=== PATIENT | female | born 1950 | race Caucasian/White ===

== ENCOUNTER 2024-04-18 20:36 | Inpatient (IN) | payer MEDICARE, OTHER, SELFPAY ==
--- OUTSIDE RECORDS SUMMARY | 2024-04-18 20:38 | XMS_ITS | Clinical Summary ---
Author Organization [facility] Address [address] [place] [address]. [place] [address] Care Team Providers Care Tearer Press Clipping Name Role Phone David Boyd MD Unavailable Marly Marcano MD Unavailable [phone] Reji Coelho MD Unavailable Anil Zavala MD Unavailable [phone] Anthony Kraus MD Unavailable [phone] Anthony Kraus MD Unavailable [phone] Sandra Luis MD Unavailable Hortensia Aguilar APRN [facility] Primary Care Pro vider Allergies Active Allergy Reactions Criticality Noted Date Comments Amoxicillin Hives 07/21/2005 04/09/23: Pt states she did take amoxocillin and had no issues Piroxicam Hives 07/21/2005 Sulfamethoxazole Hives 07/21/2005 Medications albuterol (PROAIR HFA/PROVENTIL HFA/VENTOLIN HFA) 108 (90 Base) MCG/ACT Inhaler Inhale 1-2 puffs into the lungs 01/21/20 15 Active aluminum chloride (DRYSOL) 20 % external solution 08/04/19 11 Active ammonium lactate (AMLACTIN) 12 % cream Apply topically daily as needed 01/19/20 11 Active calcipotriene (DOVONOX) 0.005 % cream Apply topically daily as needed (rash) 06/03/19 10 Active lidocaine (XYLOCAINE) 2 % external gelIndications:Ext ernal hemorrhoids Apply topically as needed for moderate pain 30 mL 2 12/11/19 19 Active Cyanocobalamin (VITAMIN B-12 PO) Take 1 Dose by mouth at bedtime Active budesonide-formote rol (SYMBICORT) 160-4.5 MCG/ACT InhalerIndications :Chronic obstructive pulmonary disease, unspecified COPD type (H) Inhale 2 puffs into the lungs 2 times daily 10.2 g 1 09/01/19 21 Active clobetasol (TEMOVATE) 0.05 % external ointmentIndication s:Psoriasis Apply topically daily as needed (rash) 60 g 06/22/19 22 Active ketoconazole (NIZORAL) 2 % external creamIndications:T inea pedis of both feet Apply topically daily 60 g 3 02/15/20 23 Active hydrOXYzine HCl (ATARAX) 25 MG tabletIndications: Persistent disorder of initiating or maintaining sleep TAKE 1 TABLET NIGHTLY NEEDED 90 tablet 1 04/21/19 24 Active omeprazole (PRILOSEC) [address] capsuleIndications :Hoarseness,Gastro esophageal reflux disease without esophagitis Take 1 capsule (40 mg) by mouth daily 90 capsule 1 04/20/19 24 Active Lidocaine (LIDOCARE) 4 % Patch Place 1 patch onto the skin every 24 hours To prevent lidocaine toxicity, patient should be patch free for 12 hrs daily. 10 patch 05/04/19 24 Active buPROPion (ZYBAN) 150 MG 12 hr tabletIndications: Nicotine dependence, uncomplicated, unspecified nicotine product type Take 1 tablet (150 mg) by mouth 2 times daily After your quit date treatment generally continues 7-12 weeks. Take your afternoon dose no later than 4pm 60 tablet 2 09/22/19 24 Active predniSONE (DELTASONE) 10 MG tablet Take 3 tablets for two days. Then take two tablets for two days. Then take 1 tablet for two days. 12 tablet 09/05/19 24 Active Additional Information Patient not taking.Reported on 04/09/2024 ipratropium - albuterol 0.5 mg/2.5 mg/3 mL (DUONEB) 0.5-2.5 (3) MG/3ML neb solutionIndication s:COPD exacerbation (H) Take 1 vial (3 mLs) by nebulization every 6 hours as needed for shortness of breath, wheezing or cough 90 mL 1 09/10/19 24 Active budesonide (PULMICORT) 1 MG/2ML neb solutionIndication s:Chronic obstructive pulmonary disease, unspecified COPD type (H) Take 2 mLs (1 mg) by nebulization 2 times daily 180 mL 1 09/10/19 24 Active azelastine (ASTELIN) 0.1 % nasal sprayIndications:C hronic rhinitis [place] 2 sprays into both nostrils at bedtime May increase to twice daily as needed 30 mL 3 10/10/19 24 Active albuterol (PROVENTIL) (2.5 MG/3ML) 0.083% neb solutionIndication s:Chronic obstructive pulmonary disease, unspecified COPD type (H) INHALE 1 VIAL (2.5MG) BY NEBULIZATION EVERY 4 HOURS NEEDED FOR SHORTNESS OF BREATH, WHEEZING OR COUGH 75 mL 10/29/19 24 Active diltiazem 2% 2% OINT ointmentIndication s:Anal fissure Apply 60 g topically 2 times daily as needed. 60 g 11/23/19 24 Active levothyroxine (SYNTHROID/LEVOTHR OID) 112 MCG tabletIndications: Hypothyroidism, unspecified type Take 1 tablet (112 mcg) by mouth daily. 90 tablet 3 03/06/20 24 Active liothyronine (CYTOMEL) 5 MCG tabletIndications: Hypothyroidism, unspecified type Take 3 tablets by mouth daily. 225 tablet 3 03/06/20 24 Active gabapentin (NEURONTIN) 300 MG capsuleIndications :Peripheral polyneuropathy Take 1 capsule (300 mg) by mouth 3 times daily. 270 capsule 03/06/20 24 025 Active trimethoprim (TRIMPEX) 100 MG tabletIndications: Recurrent UTI Take 1 tablet (100 mg) by mouth at bedtime. 90 tablet 3 03/06/20 24 Active D-Mannose 500 MG CAPSIndications:Re current UTI Take 500 mg by mouth 2 times daily. 180 capsule 3 04/09/19 25 Active Hospital, Clinic, or Other Facility Administered Medication Ordered Dose Route Frequency Start Date End Date Status ondansetron (ZOFRAN-ODT) ODT tab 4 mgIndications:Nausea 4 mg PO EVERY 6 HOURS PRN 07/13/2021 Active Active Problems Problem Noted Date Diagnosed Date Anal fissure 01/31/2024 Purpura 01/23/2024 Pulmonary nodule 11/29/2022 Overview (11/29/2022): Referred to [facility] by [employer] [place] Results Team. COPD (chronic obstructive pulmonary disease) Personal history of ovarian cancer 06/21/2021 History of gastric bypass 12/10/2020 Chronic bronchitis 05/29/2020 Stage 3a chronic kidney disease 04/05/2020 Age-related osteoporosis wit hout current pathological fracture 04/02/2020 Overview (06/21/2021): L-.3, LH-2.5, RH-2.3 Persistent disorder of initiating or maintaining sleep 11/04/2019 Tobacco abuse 11/04/2019 Other specified hypothyroidism 11/04/2019 History of pulmonary embolism 11/04/2019 Overview (06/21/2021): 2007 Nephrolithiasis 10/03/2019 Overview (10/03/2019): Added automatically from request for surgery [id number] Psoriasis 09/24/2017 Recurrent UTI 08/01/2017 Overview (04/17/2024): Follows Urology; seen on 04-09-24. Will plan on the following: -Will plan starting d-mannose 500 mg twice daily. Can increase up to 1000 mg twice daily, if tolerated. This is for UTI prevention. -You have already had anatomical evaluation for recurrent UTIs and findings have been addressed. -I would prefer that you stop trimethoprim, as I recommend in 2020. You would like to continue. Would recommend discussing with infectious diseases. -Would only recommend treating UTIs if having symptoms. If no real symptoms or no improvement with antibiotics, would not recommend continuing to treat. At that point, likely colonized. -Plan on referral to infectious diseases given ESBL with worsening resistance to antibiotics. Was sensitive to fosfomycin in 2020, but not recently tested for this. ID referral number: We could teach you gentamicin irrigations if ID wanted, but would hold off on this for the time being. -Could try a different overactive bladder medication to see if this would help frequency. Another option would be posterior tibial nerve stimulation. Status post total left knee replacement 08/19/[address] scan, chest 02/07/2010 Overview (07/02/2020): Ill defined 1cm area of possible inflammation, atelectasis vs pulmonary nodule. 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 Pseudoaneurysm in the right groin seen 02/04/07, partially thrombosed. Urge incontinence 12/13/2004 Other vitamin B12 deficiency anemia 08/25/1999 Asymptomatic varicose veins 08/25/1999 Resolved Problems Problem Noted Date Diagnosed Date Resolved Date Malignant neoplasm of ovary, unspecified laterality 11/08/2022 11/27/2022 Thoracic back pain 11/18/2020 Morbid obesity 07/02/2020 01/23/2024 Depression 07/06/2003 12/10/2020 Encounters Date Type Department Care Team Description 04/09/2024 3:00 PM LAB[employer]E Office Visit [facility] [address] [place] [phone] Fariba Kebede PA-C Recurrent UTI (Primary Dx); Feeling of incomplete bladder emptying; History of kidney stones 04/09/2024 Travel 04/07/2024 MyC Medical Advice [address] [phone] Romaine Michael APRN CNP 04/06/2024 Travel 03/07/2024 Telephone [facility] [address] [place] [address] Sandra Luis MD Schedule Surgery (Patient canceled surgery d/t condition improved) 03/06/2024 11:30 AM LAB[employer]E Office Visit [address] [phone] Romaine Michael APRN CNP Hypothyroidism, unspecified type (Primary Dx); Peripheral polyneuropathy; Recurrent UTI; Chronic obstructive pulmonary disease, unspecified COPD type (H) 03/06/2024 10:30 AM [employer]E Immunization [address] [phone] Need for prophylactic vaccination and inoculation against influenza (Primary Dx); High priority for 2019-nCoV vaccine 03/06/2024 Travel 03/04/[address] [phone] Marly Marcano MD Refill Request (Levothyroxine, liothyronine, trimethoprim, gabapentin) 02/05/2024 Telephone [facility] [address] [phone] Sandra Luis MD Schedule Surgery 01/31/2024 11:30 AM CDT Office Visit [facility] [address] [phone] Sandra Luis MD Anal fissure (Primary Dx) 01/31/2024 Orders Only [facility] [address] [phone] Sandra Luis MD Anal fissure (Primary Dx) 01/31/2024 Travel 01/28/2024 Travel 01/23/2024 1:00 PM CDT Office Visit [address] [phone] Hortensia Aguilar APRN CNP Recurrent UTI (Primary Dx); Stage 3a chronic kidney disease (H) 01/23/2024 Travel 01/22/2024 Travel from Last 3 Months Immunizations Name Administration Dates Next Due COVID-19 12+ (Pfizer) 03/06/2024 COVID-19 Monovalent 18+ (Moderna) 02/07/2021,,05/29/2020 Influenza (High Dose) Trival ent,PF (Fluzone) 03/06/2024,03/16/2020 Influenza Vaccine 65+ (FLUAD) 04/30/2023, 022,02/17/2021 Influenza Vaccine >6 months,quad, PF 12/01/2014, 12/12/2013 Influenza Vaccine, 6+MO IM ( QUADRIVALENT W/PRESERVATIVES) 12/15/2018 Pneumo Conj 13-V (2010&after) 11/04/2019 Pneumococcal 23 valent 06/21/2021,02/05/2001 TDAP (Adacel,Boostrix) 06/21/2021 Tdap (Adult) Unspecified Formulation 02/07/2010 Family History Medical History Relation Comments Coronary Artery Disease Brother Myocardial Infarction Brother Coronary Artery Disease Father Diabetes Father Leukemia Mother Other Cancer Mother Diabetes Sister 1 Hypertension Sister 1 Macular Degeneration Sister 1 Obesity Sister 1 Thyroid Disease Sister 1 Cancer Sister 2 Diabetes Sister 2 Hypertension Sister 2 Macular Degeneration Sister 2 Other Cancer Sister 2 Thyroid Disease Sister 2 Diabetes Sister 3 Thyroid Disease Sister 3 Thyroid Disease Sister 4 Lupus Sister 5 Asthma Son Relation Status Comments Brother Father Mother Sister 1 Sister 2 Sister 3 Alive Sister 4 Alive Sister 5 Alive Son Social History Tobacco Use Types Packs/Day Years Used Date Smoking Tobacco: Every Day Cigarettes 0.5 10 Smokeless Tobacco: Current Tobacco Cessation:Ready to Q uit: Not Asked; Counseling Given: Not Answered Alcohol Use Standard Drinks/Week Comments No 0 (1 standard drink = 0.6 oz pur e alcohol) Social Connection and Isolation Panel [NHANES] A nswer Date Recorded In a typical week, how many times do you talk on the phone with family, friends, or neighbors? Once a week 11/20/2022 How often do you get together with friends or re latives? Once a week 11/20/2022 How often do you attend adventist or temple serv ices? Never 11/20/2022 Do you belong to any clubs o r organizations such as adventist groups, unions, fraternal or athletic groups, or school groups? No 11/20/2022 Attends Club or Organization Meetings Not on yemi e 11/20/2022 Are you , , di vorced, , never , or living with a partner? 11/20/2022 AUDIT-C Answer Date Recorded Q1: How often do you have a drink containing alcohol? Never 11/20/2022 Q2: How many drinks containi ng alcohol do you have on a typical day when you are drinking? Patient does not drink Q3: How often do you have si x or more drinks on one occasion? Never 11/20/2022 Overall Financial Resource Strain (CARDIA) Answe r Date Recorded How hard is it for you to pa y for the very basics like food, housing, medical care, and heating? Not very hard 11/20/2022 PHQ-2 Answer Date Recorded PHQ-2 Score 0 05/11/2023 [facility] - Occupational Stress Questionnaire Answer Date Recorded Do you feel stress - tense, restless, nervous, or anxious, or unable to sleep at night because your mind is troubled all the time - these days? Not at all 11/20/2022 Exercise Vital Sign Answer Date Recorde d On average, how many days pe r week do you engage in moderate to strenuous exercise (like a brisk walk)? 0 days 11/20/2022 On average, how many minutes do you engage in exercise at this level? 10 min 11/20/2022 Hunger Vital Sign Answer Date Recorded Within the past 12 months, y ou worried that your food would run out before you got the money to buy more. Never true 11/21/19 23 Within the past 12 months, t he food you bought just didn't last and you didn't have money to get more. Never true 11/20/2022 PRAPARE - Transportation Answer Date Re corded In the past 12 months, has l ack of transportation kept you from medical appointments or from getting medications? No 11/01 In the past 12 months, has l ack of transportation kept you from meetings, work, or from getting things needed for daily living? No 11/20/2022 Housing Stability Vital Sign Answer Serg e Recorded In the last 12 months, was t here a time when you were not able to pay the mortgage or rent on time? No 11/20/2022 In the last 12 months, how many places have you lived? 1 11/20/2022 In the last 12 months, was t here a time when you did not have a steady place to sleep or slept in a fpc (including now)? No 11/20/2022 Adolescent Education Answer Date Record ed Getting School Help Needed Not on file 12/23 Interpersonal Safety Answer Date Record ed Do you feel physically and e motionally safe where you currently live? Yes 11/12/2023 Within the past 12 months, h ave you been hit, slapped, kicked or otherwise physically hurt by someone? No 11/12/2023 Within the past 12 months, h ave you been humiliated or emotionally abused in other ways by your partner or ex-partner? No 11/12/2023 Comments No Sex and Gender Information Value Date Recorded Sex Assigned at Female 05/01/2020 8:36 AM [employer]E Legal Sex Female 3:25 AM [employer] Gender Identity Female 05/01/2020 8:36 AM [employer]E Sexual Orientation Not on file Last Filed Vital Signs Vital Sign Reading Time Taken Comments Blood Pressure 112/58 04/09/2024 3:05 PM [employer]E Pulse 84 03/06/2024 11:22 AM [employer]E Temperature 36.8 C (98.3 F) 03/06/2024 11:02 AM [employer]CR[employer]E Respiratory Rate 16 03/06/2024 11:02 AM [employer]ER [employer]CR[employer]E Oxygen Saturation 100% 03/06/2024 11:22 AM [employer]E Inhaled Oxygen Concentration - - Weight 68.9 kg (152 lb) 04/09/2024 3:05 PM [employer]ER [employer]E Height 159.4 cm (5' 2.75) 03/06/2024 11:[address] Body Mass Index 27.14 03/06/2024 11:02 AM [employer]ER [employer]E Plan of Treatment Upcoming Encounters Date Type Department Care Team (Late st Contact Info) Description 04/30/2024 11:00 AM LAB[employer]CRETE Office Visit [address] [phone] Hortensia Aguilar APRN [facility] [id number] [place] [phone] Health Maintenance Due Date Last Done Comments CT COLONOGRAPHY 1952 FLEX SIG 1950 SPIROMETRY 1952 sDNA (Cologuard) 1952 ZOSTER IMMUNIZATION (1 of 2) 2002 RSV VACCINE (1 - Risk 60-74 years 1-dose series) 2012 FIT 02/18/2015 02/18/2014 LIPID 11/09/2023 11/08/2022, 06/01, 12/05/2019 ANNUAL REVIEW OF HM ORDERS 11/28/202311/27, 06/21/2021, 04/05/2020 PHQ-2 (once per calendar year) 2024 05/11/2023, 11/27/2022, 11/08/2022, Additional history exists LUNG CANCER SCREENING 08/20/2024 08/21/2023 , 11/28/2022, 05/29/2020, Additional history exists MEDICARE ANNUAL WELLNESS VISIT 08/20/2024 08/21/2023, 11/08/2022 HEMOGLOBIN 09/04/2024 09/05/2023, 08/01, 05/04/2023, Additional history exists TSH W/FREE T4 REFLEX 09/08/2024 11/08/2022, 11/25/2021, 12/10/2020, Additional history exists Postponed from 11/09/2023 (Other) FALL RISK ASSESSMENT 11/11/2024 11/12/2023, 11/27/2022, 11/08/2022, Additional history exists NICOTINE/TOBACCO CESSATION COUNSELING Q 1 YR 11/11/2024 11/12/2023, 11/08/2022, 06/21/2021, Additional history exists BMP 01/22/2025 01/23/2024, 06/0 08/2023, 08/21/2023, Additional history exists MICROALBUMIN 01/22/2025 01/23/2024, 11/01, 06/21/2021 MAMMO SCREENING 11/20/2025 11/21/2023, 06/01, 06/21/2021, Additional history exists COLONOSCOPY 08/16/2026 08/16/2016 COLORECTAL CANCER SCREENING 08/16/2026 GLUCOSE 01/22/2027 01/23/2024, 06/0 08/2023, 08/21/2023, Additional history exists ADVANCE CARE PLANNING 11/12/2027 11/11/2022 , 11/25/2021, 12/05/2019 DTAP/TDAP/TD IMMUNIZATION (3 - Td or Tdap) 06/22/2031 06/21/2021, 02/07/2010 DEXA 04/26/2035 04/26/2020 HEPATITIS C SCREENING Completed 04/05/2020 Pneumococcal Vaccine: 50+ Years Completed 06/21/2021, 11/04/2019, 02/05/2001 COPD ACTION PLAN Completed 11/25/2021, 11/25/2021 COVID-19 Vaccine Completed 03/06/2024, , 03/02/2022, Additional history exists INFLUENZA VACCINE Completed 03/06/2024, , 03/02/2022, Additional history exists URINALYSIS Completed 04/09/2024, 01/01, 01/09/2024, Additional history exists HPV IMMUNIZATION Aged Out No longer e ligible based on patient's age to complete this topic MENINGITIS IMMUNIZATION Aged Out No l onger eligible based on patient's age to complete this topic RSV MONOCLONAL ANTIBODY Aged Out No l onger eligible based on patient's age to complete this topic Procedures Procedure Name Priority Date/Time Associated Diagnosis Comments URINALYSIS MACROSCOPIC Routine 04/09/2024 3:18 PM [employer] Recurrent UTI MI MEASURE POST-VOID RESIDUAL URINE/BLADDER CAPACITY, US NON-IMAGING Routine 04/09/2024 Feeling of incomplete bladder emptying COMPREHENSIVE METABOLIC PANEL Routine 01/23/2024 1:57 PM CDT Stage 3a chronic kidney disease (H) UA MACROSCOPIC WITH REFLEX TO MICRO AND CULTURE Add-On 01/23/2024 12:46 PM CDT Recurrent UTI ALBUMIN RANDOM URINE QUANTITATIVE Routine 01/23/2024 12:46 PM CDT MA SCREENING BILATERAL W/ JERMAINE Routine 11/21/2023 10:34 AM CDT Visit for screening mammogram CBC WITH PLATELETS AND DIFFERENTIAL STAT 09/05/2023 12:[address] CHEST PULMONARY EMBOLISM W CONTRAST STAT 08/21/2023 6:39 PM CDT TSH WITH FREE T4 REFLEX Routine 11/08/2022 10:08 AM CDT Other specified hypothyroidism LIPID REFLEX TO DIRECT LDL PANEL Routine 11/08/2022 10:08 AM CDT Encounter for Medicare annual wellness exam DX BONE DENSITY Routine 04/26/2020 1:38 PM [employer] Asymptomatic menopausal state Screening for osteoporosis HEPATITIS C SCREEN REFLEX TO HCV RNA QUANT AND GENOTYPE Routine 04/05/2020 5:30 PM [employer] Need for hepatitis C screening test COLONOSCOPY - HIM SCAN 08/16/2016 12:00 AM CDT from Last 3 Months or Most Recently Relevant to Health Maintenance Results * (ABNORMAL) UA without Microscopic [[id number]] (04/09/2024 3:18 PM LAB[employer]ER [employer]E) Color Urine Yellow Colorless, Straw, Light Yellow, Yellow 04/09/2024 3:20 PM LAB[employer]ER [employer]E [facility] Appearance Urine Clear Clear 04/09/19 3:20 PM LAB[employer]ER [employer]E [facility] Glucose Urine Negative Negative mg/dL 04/09/2024 3:20 PM LAB[employer]ER [employer]E [facility] Bilirubin Urine Negative Negative 3:20 PM LAB[employer]ER [employer]CR[employer]E [facility] Ketones Urine Negative Negative mg/dL 04/09/2024 3:20 PM [employer]ER [employer] CONCR[employer]E [facility] Specific [place] Urine 1.015 1.003 - 1.035 04/09/2024 3:20 PM LAB[employer]ER [employer]E [facility] Blood Urine Negative Negative 04/09/2024 3:20 PM [employer]ER [employer]E [facility] pH Urine 5.5 5.0 - 7.0 04/09/2024 3:20 PM [employer]ER [employer]E [facility] Protein Albumin Urine Negative Negative mg/dL 04/09/2024 3:20 PM LAB[employer]ER [employer]CR[employer]E [facility] Urobilinogen Urine 0.2 0.2, 1.0 E.U./dL 04/09/2024 3:20 PM [employer]ER [employer]E [facility] Nitrite Urine Negative Negative 04/09/2024 3:20 PM LAB[employer]ER [employer]CR[employer]E [facility] Leukocyte Esterase Urine Small(A) Negative 04/09/2024 3:20 PM LABORER [employer] CONCRETE [facility] Urine MID-STREAM URINE SPECIMEN / Unknown Non-blood Collection / Unknown 04/09/2024 3:18 PM LAB[employer]ER [employer]CRETE 04/09/2024 3:18 PM [employer]E Fariba Kebede PA-C LAB - URINE ORDERABLE S Final Result [facility] [address] [facility] [place] [address], [facility] [phone] * MEASURE POST-VOID RESIDUAL URINE/BLADDER CAPACITY, US NON-IMAGING (13384) (04/09/2024) Residual Volume (RV) (External) 28 Fariba Kebede PA-C PROCEDURES Final Result * (ABNORMAL) Comprehensive metabolic panel (BMP + Alb, Alk Phos, ALT, AST, Total. Bili, TP) (01/23/2024 1:57 PM CDT) Sodium 139 135 - 145 mmol/L 01/23/2024 9:49 PM CDT [facility] Potassium 4.6 3.4 - 5.3 mmol/L 01/23/2024 9:49 PM CDT [facility] Carbon Dioxide (CO2) 25 22 - 29 mmol/L 01/23/2024 9:49 PM CDT [facility] Anion Gap 9 7 - 15 mmol/L 01/23/2024 9:49 PM CDT [facility] Urea Nitrogen 10.8 8.0 - 23.0 mg/dL 01/23/2024 9:49 PM CDT [facility] Creatinine 1.11(H) 0.51 - 0.95 mg/dL 01/23/2024 9:49 PM CDT [facility] GFR Estimate 53(L) >60 mL/min/1.7 3m2 01/23/2024 9:49 PM CDT [facility] Comment:eGFR calculated us2020 CKD-EPI equation. Calcium 9.6 8.8 - 10.4 mg/dL 01/23/2024 9:49 PM CDT [facility] Comment:Reference intervals for this test were updated on 10/16/2023 to reflect our healthy population more accurately. There may be differences in the flagging of prior results with similar values performed with this method. Those prior results can be interpreted in the context of the updated reference intervals. Chloride 105 98 - 107 mmol/L 01/23/2024 9:49 PM CDT [facility] Glucose 95 70 - 99 mg/dL 01/23/2024 9:49 PM CDT [facility] Alkaline Phosphatase 122 40 - 150 U/L 01/23/2024 9:49 PM CDT [facility] AST 24 0 - 45 U/L 01/23/2024 9:49 PM CDT [facility] ALT 20 0 - 50 U/L 01/23/2024 9:49 PM CDT [facility] Protein Total 6.8 6.4 - 8.3 g/dL 01/23/2024 9:49 PM CDT [facility] Albumin 3.9 3.5 - 5.2 g/dL 01/23/2024 9:49 PM CDT [facility] Bilirubin Total 0.3 <=1.2 mg/dL 01/23/2024 9:49 PM CDT [facility] Blood BLOOD SPECIMEN / Unknown Venipuncture / Unknown 01/23/2024 1:57 PM CDT 01/23/2024 1:57 PM CDT us Hortensia Aguilar APRN BUSINESS WRITER LAB - BLOOD ORDER FAISAL Final Result [facility] [address] [facility], [address] [place] [address] * UA Macroscopic with reflex to Microscopic and Culture (01/23/2024 12:46 PM CDT) Color Urine Yellow Colorless, Straw, Light Yellow, Yellow 01/23/2024 2:13 PM CDT [facility] Appearance Urine Clear Clear 01/23/20 2:13 PM CDT [facility] Glucose Urine Negative Negative mg/dL 01/23/2024 2:13 PM CDT [facility] Bilirubin Urine Negative Negative 2:13 PM CDT [facility] Ketones Urine Negative Negative mg/dL 01/23/2024 2:13 PM CDT [facility] Specific [place] Urine <=1.005 1.003 - 1.035 01/23/2024 2:13 PM CDT [facility] Blood Urine Negative Negative 01/23/2024 2:13 PM CDT [facility] pH Urine 5.0 5.0 - 7.0 01/23/2024 2:13 PM CDT [facility] Protein Albumin Urine Negative Negative mg/dL 01/23/2024 2:13 PM CDT [facility] Urobilinogen Urine 0.2 0.2, 1.0 E.U./dL 01/23/2024 2:13 PM CDT [facility] Nitrite Urine Negative Negative 01/23/2024 2:13 PM CDT [facility] Leukocyte Esterase Urine Negative Negative 01/23/2024 2:13 PM CDT [facility] Urine URINE SPECIMEN / Unknown Non-blood Collection / Unknown 01/23/2024 12:46 PM CDT 01/23/2024 12:46 PM CDT Narrative [facility] LABORATORY - 01/23/2024 2:13 PM CDT Microscopic not indicated us Hortensia Aguilar APRN BUSINESS WRITER LAB - URINE ORDER FAISAL Final Result CR LABORATORY [facility] [id number] [place] [address] (no room number, 1st floor of clinic) [place] [address], [facility] * Albumin Random Urine Quantitative with Creat Ratio (01/23/2024 12:46 PM CDT) Creatinine Urine mg/dL 24.3 mg/dL 01/23/2024 7:47 PM CDT [facility] Comment:The reference ranges have not been established in urine creatinine. The results should be integrated into the clinical context for interpretation. Albumin Urine mg/L <12.0 mg/L 10/23/ 2024 7:47 PM CDT [facility] Comment:The reference ranges have not been established in urine albumin. The results should be integrated into the clinical context for interpretation. Albumin Urine mg/g Cr 01/23/2024 7:47 PM CDT [facility] Comment: Unable to calculate, urine albumin and/or urine creatinine is outside detectable limits. Microalbuminuria is defined as an albumin:creatinine ratio of 17 to 299 for males and 25 to 299 for females. A ratio of albumin:creatinine of 300 or higher is indicative of overt proteinuria. Due to biologic variability, positive results should be confirmed by a second, first-morning random or 24-hour timed urine specimen. If there is discrepancy, a third specimen is recommended. When 2 out of 3 results are in the microalbuminuria range, this is evidence for incipient nephropathy and warrants increased efforts at glucose control, blood pressure control, and institution of therapy with an fzovcyjtvkm-ajipcsmibd-tnzome (GILBERT) inhibitor (if the patient can tolerate it). Urine URINE SPECIMEN / Unknown Non-blood Collection / Unknown 01/23/2024 12:46 PM CDT 01/23/2024 12:46 PM CDT us Hortensia Aguilar APRN BUSINESS WRITER LAB - URINE ORDER FAISAL Final Result [facility] LABORAT[facility] [address] [facility], [address] [place] [id number] * MA Screen Bilateral w/Jermaine (11/21/2023 10:34 AM CDT) Anatomical Region Laterality Modality Breast Bilateral Mammography Impressions 11/21/2023 3:18 PM CDT IMPRESSION: ACR BI-RADS Category 1: Negative BREAST CANCER SCREENING RECOMMENDATION: Routine yearly mammography beginning at age 40 or as discussed with your provider. The results and recommendations of this examination will be communicated to the patient. Eloy Srivastava MD Narrative 11/21/2023 3:18 PM CDT BILATERAL FULL FIELD DIGITAL SCREENING MAMMOGRAM WITH TOMOSYNTHESIS Performed on: 11/21/23 Compared to: 06/20/2022, 06/21/2021, and 05/21/2020 Technique: This study was evaluated with the assistance of Computer-Aided Detection. Breast Tomosynthesis was used in interpretation. Findings: There are scattered areas of fibroglandular density. There is no radiographic evidence of malignancy. Marly Krystal Villegas MD IMG MAMMOGRAPHY ORDJaspal DEJESUS Final Result * CBC with platelets and differential (09/05/2023 12:20 PM CDT) WBC Count 9.6 4.0 - 11.0 10e3/uL 09/05/2023 12:34 PM CDT [facility] RBC Count 4.45 3.80 - 5.20 10e6/uL 09/05/2023 12:34 PM CDT [facility] Hemoglobin 14.1 11.7 - 15.7 g/dL 09/05/2023 12:34 PM CDT [facility] Hematocrit 42.7 35.0 - 47.0 % 09/05/2023 12:34 PM CDT [facility] MCV 96 78 - 100 fL 09/05/2023 12:34 PM CDT [facility] MCH 31.7 26.5 - 33.0 pg 09/05/2023 12:34 PM CDT [facility] MCHC 33.0 31.5 - 36.5 g/dL 09/05/2023 12:34 PM CDT [facility] RDW 14.2 10.0 - 15.0 % 09/05/2023 12:34 PM CDT [facility] Platelet Count 164 150 - 450 10e3/uL 09/05/2023 12:34 PM CDT [facility] % Neutrophils 70 % 09/05/2023 12:34 PM CDT [facility] % Lymphocytes 19 % 09/05/2023 12:34 PM CDT [facility] % Monocytes 8 % 09/05/2023 12:34 PM CDT [facility] % Eosinophils 2 % 09/05/2023 12:34 PM CDT [facility] % Basophils 0 % 09/05/2023 12:34 PM CDT [facility] % Immature Granulocytes 1 % 09/05/2023 12:34 PM CDT [facility] NRBCs per 100 WBC 0 <1 /100 024 12:34 PM CDT [facility] Absolute Neutrophils 6.7 1.6 - 8.3 10e3/uL 09/05/2023 12:34 PM CDT [facility] Absolute Lymphocytes 1.8 0.8 - 5.3 10e3/uL 09/05/2023 12:34 PM CDT [facility] Absolute Monocytes 0.8 0.0 - 1.3 10e3/uL 09/05/2023 12:34 PM CDT [facility] Absolute Eosinophils 0.2 0.0 - 0.7 10e3/uL 09/05/2023 12:34 PM CDT [facility] Absolute Basophils 0.0 0.0 - 0.2 10e3/uL 09/05/2023 12:34 PM CDT [facility] Absolute Immature Granulocytes 0.1 <=0.4 10e3/uL 09/05/2023 12:34 PM CDT [facility] Absolute NRBCs 0.0 10e3/uL 09/05/2023 12:34 PM CDT [facility] Blood BLOOD SPECIMEN / Unknown Venipuncture / Unknown 09/05/2023 12:20 PM CDT 09/05/2023 12:26 PM CDT us Justin Ocampo MD LAB - BLOOD ORDERABLES Final Result [facility] [address] (1st floor, no room number) [place] [address] * CT Chest Pulmonary Embolism w Contrast (08/21/2023 6:39 PM CDT) Anatomical Region Laterality Modality Chest, SUBRAD CT BODY, UMP CT CHEST Computed Tomography 08/21/2023 6:39 PM CDT Impressions 08/21/2023 7:07 PM CDT IMPRESSION: 1. No pulmonary embolism. 2. Pulmonary arteries enlarged suggesting pulmonary arterial hypertension. 3. Mosaic attenuation of the lungs suggesting small airway disease. 4. Few tiny nodular opacities are noted at the right lung base which may represent areas of atelectasis or possible early infection. Narrative 08/21/2023 7:07 PM CDT EXAM: CT CHEST PULMONARY EMBOLISM W CONTRAST LOCATION: [facility] DATE: 08/21/2023 INDICATION: Pleuritic chest pain, SOB, similar symptoms with previous PE COMPARISON: TECHNIQUE: CT chest pulmonary angiogram during arterial phase injection of IV contrast. Multiplanar reformats and MIP reconstructions were performed. Dose reduction techniques were used. CONTRAST: 57mL Isovue 370 FINDINGS: ANGIOGRAM CHEST: Pulmonary arteries enlarged suggesting pulmonary arterial hypertension measuring 3.4 cm. No pulmonary embolism. Thoracic aorta is negative for dissection. No CT evidence of right heart strain. LUNGS AND PLEURA: Minimal bibasilar atelectasis. Mosaic attenuation of the lungs suggesting small airway disease. Small scarring noted at the right lung apex. Few tiny nodular opacities are noted at the right lung base which may represent areas of atelectasis or possible early infection. MEDIASTINUM/AXILLAE: Stable nodule within the left lobe of the thyroid. Heart normal in size. No mediastinal, axillary, or hilar adenopathy. CORONARY ARTERY CALCIFICATION: Mild. UPPER ABDOMEN: Normal. MUSCULOSKELETAL: Degenerative changes of the spine. Procedure Note Yovany Perry MD - 08/21/2023 EXAM: CT CHEST PULMONARY EMBOLISM W CONTRAST LOCATION: [facility] DATE: 08/21/2023 INDICATION: Pleuritic chest pain, SOB, similar symptoms with previous PE COMPARISON: TECHNIQUE: CT chest pulmonary angiogram during arterial phase injection ofIV contrast. Multiplanar reformats and MIP reconstructions were performed.Dose reduction techniques were used. CONTRAST: 57mL Isovue 370 FINDINGS: ANGIOGRAM CHEST: Pulmonary arteries enlarged suggesting pulmonary arterialhypertension measuring 3.4 cm. No pulmonary embolism. Thoracic aorta isnegative for dissection. No CT evidence of right heart strain. LUNGS AND PLEURA: Minimal bibasilar atelectasis. Mosaic attenuation of thelungs suggesting small airway disease. Small scarring noted at the rightlung apex. Few tiny nodular opacities are noted at the right lung basewhich may represent areas of atelectasis or possible early infection. MEDIASTINUM/AXILLAE: Stable nodule within the left lobe of the thyroid.Heart normal in size. No mediastinal, axillary, or hilar adenopathy. CORONARY ARTERY CALCIFICATION: Mild. UPPER ABDOMEN: Normal. MUSCULOSKELETAL: Degenerative changes of the spine. IMPRESSION: 1. No pulmonary embolism. 2. Pulmonary arteries enlarged suggesting pulmonary arterialhypertension. 3. Mosaic attenuation of the lungs suggesting small airway disease. 4. Few tiny nodular opacities are noted at the right lung base which mayrepresent areas of atelectasis or possible early infection. us Justin Ocampo MD IMG CT ORDERABLES Final Resu lt * TSH with free T4 reflex (11/08/2022 10:08 AM CDT) TSH 0.77 0.30 - 4.20 uIU/mL 11/08/2022 8:59 PM CDT [facility] Blood BLOOD SPECIMEN / Unknown Venipuncture / Unknown 11/08/2022 10:08 AM CDT 11/08/2022 10:09 AM CDT Anil Zavala MD LAB - BLOOD ORDERABL ES Final Result [facility] [address] [facility], [address] [place] [id number], [facility] [phone] * Lipid panel reflex to direct LDL Fasting (11/08/2022 10:08 AM CDT) Cholesterol 163 <200 mg/dL 11/08/2022 8:59 PM CDT [facility] Triglycerides 85 <150 mg/dL 11/08/2022 8:59 PM CDT [facility] Direct Measure HDL 58 >=50 mg/dL 2022 8:59 PM CDT [facility] LDL Cholesterol Calculated 88 <=100 mg/dL 11/08/2022 8:59 PM CDT [facility] Non HDL Cholesterol 105 <130 mg/dL 11/08/2022 8:59 PM CDT [facility] Blood BLOOD SPECIMEN / Unknown Venipuncture / Unknown 11/08/2022 10:08 AM CDT 11/08/2022 10:09 AM CDT Narrative [facility] - 11/08/2022 8:59 PM CDT Cholesterol Desirable: <200 mg/dL Triglycerides Normal: Less than 150 mg/dL Borderline High: 150-199 mg/dL High: 200-499 mg/dL Very High: Greater than or equal to 500 mg/dL Direct Measure HDL Female: Greater than or equal to 50 mg/dL Male: Greater than or equal to 40 mg/dL LDL Cholesterol Desirable: <100mg/dL Above Desirable: 100-129 mg/dL Borderline High: 130-159 mg/dL High: 160-189 mg/dL Very High: >= 190 mg/dL Non HDL Cholesterol Desirable: 130 mg/dL Above Desirable: 130-159 mg/dL Borderline High: 160-189 mg/dL High: 190-219 mg/dL Very High: Greater than or equal to 220 mg/dL us Anil Zavala MD LAB - BLOOD ORDERABL ES Final Result LABORATORY [facility] [address] [facility], [address] [place] [id number], [facility] [phone] * DEXA HIP/PELVIS/SPINE - Future (04/26/2020 1:38 PM LABORER PRESTRESSED CONCRETE) Anatomical Region Laterality Modality Dexa Bone Mineral Den sity Narrative 04/27/2020 11:33 AM LABORER PRESTRESSED CONCRETE BONE DENSITOMETRY [address] [address] 04/26/2020 PATIENT: Aviva Mueller CHART: [id number] : 1950 AGE: [age] year old SEX: female REFERRING PROVIDER: Jacinta Ely MD PROCEDURE: Bone density scanning was performed using DXA technology of the lumbar spine and hip. Scanning was performed on a [employer] scanner. Reporting is completed in the form of a T-score. The T-score represents the standard deviation from peak bone mass based on a young healthy adult. 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 Left Femoral Neck T-score: -2.5 Right Femoral Neck T-score: -2.3 Lumbar (L1-L2) BMD: 1.143 Total Hip Mean BMD: 0.738 IMPRESSION Osteoporosis., Degenerative changes of the lumbar spine which may falsely elevate results. Recommendations include ensuring adequate Calcium and Vitamin D. The current NOF Guidelines recommend treatment for patients with prior hip or vertebral fracture, T-score -2.5 or below, or 10 year risk of any major osteoporotic fracture >20% or 10 year risk of hip fracture >3%, as calculated using the FRAX calculator (www.shef.ac.uk/FRAX or you can google FRAX). Based on these guidelines, treatment (in addition to calcium and vitamin D) is recommended for this patient, after ruling out other causes of osteoporosis. This is meant as an aid to clinical decision making; one must still use clinical judgement. Follow up can be considered in 2 years. Aviva Murillo M.D. Electronically signed Jacinta Ely MD IMG DEXA ORDERABLES Final Resul t * Hepatitis C Screen Reflex to HCV RNA Quant and Genotype (04/05/2020 5:30 PM LABORER PRESTRESSED CONCRETE) Hepatitis C Antibody Nonreactive NR^Nonre active 04/06/2020 4:24 PM LABORER PRESTRESSED CONCRETE [facility] Comment: Assay performance characteristics have not been established for newborns, infants, and children Blood specimen (specimen) 04/05/2020 5:30 PM LABORER PRESTRESSED CONCRETE 04/05/2020 5:35 PM LABORER PRESTRESSED CONCRETE Jacinta Ely MD LAB - BLOOD ORDERABLES Final Re sult [facility] [address] [place] [address] * COLONOSCOPY - HIM SCAN (08/16/2016 12:00 AM CDT) 08/16/2016 us Provider Outside PROCEDURES Final Result from Last 3 Months or Most Recently Relevant to Health Maintenance Additional Health Concerns Infection Onset Date Last Indicated 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 12/20/2023 Insurance MEDICARE [facility] [place] [place] [address] [employer] MEDICARE ADVANTAGE MEDICARE / [place] [address] [facility] MEDICARE ADVANTAGE OTHER Advance Directives For more information, please contact: [phone] * Full Code (Latest Code Status on File) Date Activated Date Inactivated Comments 11/19/2019 7:24 AM 05/29/2020 11:55 AM Question Answer Comments Code status determined by: Discussion with patie nt/ legal decision maker * Full Code Date Activated Date Inactivated Comments 11/18/2019 11:20 AM 11/19/2019 7:24 AM All basic a nd advanced life-sustaining interventions are performed as appropriate Question Answer Comments Code status determined by: Discussion with patie nt/ legal decision maker Care Teams Tearer Press Clipping Relationship Specialty Start Date End Date Hortensia Aguilar APRN BUSINESS WRITER [id number] [place] [address] PCP - General Family Medicine 03/04/24 David Boyd MD [address] [facility] [facility] [place] [address] Urology 03/05/20 [place] [address] [address] Assigned PCP 12/03/21 Reji Coelho MD [address] [place] [address] Dermatology 11/27/22 Anil Zavala MD [address] [place] [address] Hospitalist Internal Medicine 12/01/22 Anthony Kraus MD [address] [place] [id number] Cardiovascular & Thoracic Surgery 12/01/22 Anthony Kraus MD [address] [place] [address], [place] [address] Assigned Heart and Vascular Provider 12/30/22 Sandra Luis MD [address] [place] [address] Assigned Surgical Provider 02/23/24
--- OUTSIDE RECORDS SUMMARY | 2024-04-18 20:38 | XMS_ITS | Referral Summary ---
Author Organization [facility] Address [address] [place] [address]. [place] [address] Care Team Providers Care Hotel Clerk Name Role Phone David Boyd MD Unavailable Marly Marcano MD Unavailable [phone] Reji Coelho MD Unavailable Anil Zavala MD Unavailable [phone] Anthony Kraus MD Unavailable [phone] Anthony Kraus MD Unavailable [phone] Sandra Luis MD Unavailable [phone] Hortensia Aguilar APRN GLASS BLOWER HELPER Primary Care Pro vider Encounters Date Type Department Care Team Description 04/09/2024 Travel 04/09/2024 3:00 PM REEL CUTTER Office Visit [facility] [address] [place] [address] Fariba Kebede PA-C Recurrent UTI (Primary Dx); Feeling of incomplete bladder emptying; History of kidney stones 04/07/2024 MyC Medical Advice [address] [address] Romaine Michael APRN GLASS BLOWER HELPER 04/06/2024 Travel 03/07/2024 Telephone [facility] [address] 4th [place] [address] Sandra Luis MD Schedule Surgery (Patient canceled surgery d/t condition improved) 03/06/2024 Travel 03/06/2024 10:30 AM REEL CUTTER Immunization [address] [address] Need for prophylactic vaccination and inoculation against influenza (Primary Dx); High priority for 2019-nCoV vaccine 03/06/2024 11:30 AM REEL CUTTER Office Visit [address] [address] Romaine Michael APRN GLASS BLOWER HELPER Hypothyroidism, unspecified type (Primary Dx); Peripheral polyneuropathy; Recurrent UTI; Chronic obstructive pulmonary disease, unspecified COPD type (H) 03/04/[address] [address] Marly Marcano MD Refill Request (Levothyroxine, liothyronine, trimethoprim, gabapentin) 02/05/2024 Telephone [facility] [address] [address] Sandra Luis MD Schedule Surgery 01/31/2024 Orders Only [facility] [address] [address] Sandra Luis MD Anal fissure (Primary Dx) 01/31/2024 Travel 01/31/2024 11:30 AM CDT Office Visit [facility] Specialty Clinic [address] [address] Sandra Luis MD Anal fissure (Primary Dx) 01/28/2024 Travel 01/23/2024 Travel 01/23/2024 1:00 PM CDT Office Visit [address] [address] Hortensia Aguilar APRN GLASS BLOWER HELPER Recurrent UTI (Primary Dx); Stage 3a chronic kidney disease (H) 01/22/2024 Travel from Last 3 Months Allergies Active Allergy Reactions Criticality Noted Date [...] (ASTELIN) 0.1 % nasal sprayIndications:C hronic rhinitis [place] 2 sprays into both nostrils at bedtime [...] Pulmonary nodule 11/29/2022 Overview (11/29/2022): Referred to [facility] by [facility] Results Team. COPD (chronic obstructive pulmonary disease) [...] (10/03/2019): Added automatically from request for surgery [id number] Psoriasis 09/24/2017 Recurrent UTI 08/01/2017 Overview (04/17/2024): [...] Morbid obesity 07/02/2020 01/23/2024 Depression 07/06/2003 12/10/2020 Immunizations Name Administration Dates Next Due COVID-19 12+ (Pfizer) 03/06/2024 COVID-19 Monovalent 18+ (Moderna) 02/07/2021,,05/29/2020 Influenza (High Dose) Trival ent,PF (Fluzone) 03/06/2024,03/16/2020 Influenza Vaccine 65+ (FLUAD) 04/30/2023, 022,02/17/2021 Influenza Vaccine >6 months,quad, PF 12/01/2014, 12/12/2013 Influenza Vaccine, 6+MO IM ( QUADRIVALENT W/PRESERVATIVES) 12/15/2018 Pneumo Conj 13-V (2010&after) 11/04/2019 Pneumococcal 23 valent 06/21/2021,02/05/2001 TDAP (Adacel,Boostrix) 06/21/2021 Tdap (Adult) Unspecified Formulation 02/07/2010 Social History Tobacco Use Types Packs/Day Years [...] week 11/20/2022 How often do you attend orthodoxy or presybeterian serv ices? Never 11/20/2022 Do you belong to any clubs o r organizations such as orthodoxy groups, unions, fraternal or athletic groups, or [...] Answer Date Recorded PHQ-2 Score 0 05/11/2023 [facility] - Occupational Stress Questionnaire Answer Date Recorded [...] money to buy more. Never true 11/21/19 Within the past 12 months, t he [...] place to sleep or slept in a mcc (including now)? No 11/20/2022 Adolescent Education Answer [...] Sex Assigned at Female 05/01/2020 8:36 AM REEL CUTTER Legal Sex Female 3:25 AM REEL CUTTER Gender Identity Female 05/01/2020 8:36 AM REEL CUTTER Sexual Orientation Not on file Last Filed Vital Signs Vital Sign Reading Time Taken Comments Blood Pressure 112/58 04/09/2024 3:05 PM REEL CUTTER Pulse 84 03/06/2024 11:22 AM REEL CUTTER Temperature 36.8 C (98.3 F) 03/06/2024 11:02 AM REEL CUTTER Respiratory Rate 16 03/06/2024 11:02 AM REEL CUTTER Oxygen Saturation 100% 03/06/2024 11:22 AM REEL CUTTER Inhaled Oxygen Concentration - - Weight 68.9 kg (152 lb) 04/09/2024 3:05 PM REEL CUTTER Height 159.4 cm (5' 2.75) 03/06/2024 11:02 AM [facility] Body Mass Index 27.14 03/06/2024 11:02 AM REEL CUTTER Plan of Treatment Upcoming Encounters Date Type Department Care Team (Late st Contact Info) Description 04/30/2024 11:00 AM REEL CUTTER Office Visit [address] [phone] Hortensia Aguilar, [facility] [id number] [place] [address] Procedures Procedure Name Priority Date/Time Associated Diagnosis Comments URINALYSIS MACROSCOPIC Routine 04/09/2024 3:18 PM REEL CUTTER Recurrent UTI NM MEASURE POST-VOID RESIDUAL URINE/BLADDER CAPACITY, US NON-IMAGING Routine 04/09/2024 Feeling of incomplete bladder emptying COMPREHENSIVE METABOLIC PANEL Routine 01/23/2024 1:57 PM CDT Stage 3a chronic kidney disease (H) UA MACROSCOPIC WITH REFLEX TO MICRO AND CULTURE Add-On 01/23/2024 12:46 PM CDT Recurrent UTI ALBUMIN RANDOM URINE QUANTITATIVE Routine 01/23/2024 12:46 PM CDT MA SCREENING BILATERAL W/ JREMAINE Routine 11/21/2023 10:34 AM CDT Visit for [...] DX BONE DENSITY Routine 04/26/2020 1:38 PM REEL CUTTER Asymptomatic menopausal state Screening for osteoporosis HEPATITIS C SCREEN REFLEX TO HCV RNA QUANT AND GENOTYPE Routine 04/05/2020 5:30 PM REEL CUTTER Need for hepatitis C screening test COLONOSCOPY - HIM SCAN 08/16/2016 12:00 AM CDT from Last 3 Months or Most Recently Relevant to Health Maintenance Results * (ABNORMAL) UA without Microscopic [[id number]] (04/09/2024 3:18 PM REEL CUTTER) Color Urine Yellow Colorless, Straw, Light Yellow, Yellow 04/09/2024 3:20 PM REEL CUTTER [facility] Appearance Urine Clear Clear 04/09/19 3:20 PM REEL CUTTER [facility] Glucose Urine Negative Negative mg/dL 04/09/2024 3:20 PM REEL CUTTER [facility] Bilirubin Urine Negative Negative 3:20 PM REEL CUTTER [facility] Ketones Urine Negative Negative mg/dL 04/09/2024 3:20 PM REEL CUTTER [facility] Specific Eldred Urine 1.015 1.003 - 1.035 04/09/2024 3:20 PM REEL CUTTER [facility] Blood Urine Negative Negative 04/09/2024 3:20 PM REEL CUTTER [facility] pH Urine 5.5 5.0 - 7.0 04/09/2024 3:20 PM REEL CUTTER [facility] Protein Albumin Urine Negative Negative mg/dL 04/09/2024 3:20 PM REEL CUTTER [facility] Urobilinogen Urine 0.2 0.2, 1.0 E.U./dL 04/09/2024 3:20 PM REEL CUTTER [facility] Nitrite Urine Negative Negative 04/09/2024 3:20 PM REEL CUTTER [facility] Leukocyte Esterase Urine Small(A) Negative 04/09/2024 3:20 PM REEL CUTTER [facility] Urine MID-STREAM URINE SPECIMEN / Unknown Non-blood Collection / Unknown 04/09/2024 3:18 PM REEL CUTTER 04/09/2024 3:18 PM REEL CUTTER Fariba Kebede PA-C LAB - URINE ORDERABLE S Final Result [facility] [address] [facility] [place] [address], [facility] [phone] * MEASURE POST-VOID RESIDUAL URINE/BLADDER CAPACITY, US NON-IMAGING (40020) (04/09/2024) Residual Volume (RV) (External) 28 Fariba [...] 9:49 PM CDT [facility] Comment:eGFR calculated usin 2020 CKD-EPI equation. Calcium 9.6 8.8 - 10.4 [...] 01/23/2024 1:57 PM CDT us Hortensia Aguilar FISH PROCESSOR GLASS BLOWER HELPER LAB - BLOOD ORDER FAISAL Final Result [facility] [address] [facility], [address] [place] [address], [facility] * UA Macroscopic with reflex to Microscopic [...] 01/23/2024 2:13 PM CDT [facility] Specific Eldred Urine <=1.005 1.003 - 1.035 01/23/2024 2:13 [...] Microscopic not indicated us Hortensia Aguilar APRN GLASS BLOWER HELPER LAB - URINE ORDER FAISAL Final Result [facility] [place] [facility] [address] [facility] Lab (no room number, 1st floor of clinic) [place] [address], [place] * Albumin Random Urine Quantitative with Creat Ratio (01/23/2024 12:46 PM CDT) Creatinine Urine mg/dL 24.3 mg/dL 01/23/2024 7:47 PM CDT [facility] Comment:The reference ranges have not been established in urine creatinine. The results should be integrated into the clinical context for interpretation. Albumin Urine mg/L <12.0 mg/L 2023 7:47 PM CDT [facility] Comment:The reference [...] control, and institution of therapy with an dgnmjbsixrg-wvvnzbpopg-lyntwe (GILBERT) inhibitor (if the patient can tolerate it). Urine URINE SPECIMEN / Unknown Non-blood Collection / Unknown 01/23/2024 12:46 PM CDT 01/23/2024 12:46 PM CDT Hortensia Aguilar APRN GLASS BLOWER HELPER LAB - URINE ORDER FAISAL Final Result [facility] [address] [facility], [address] [place] [address], [facility] * MA Screen Bilateral w/Jermaine (11/21/2023 10:34 [...] There is no radiographic evidence of malignancy. July Krystal Villegas MD IMG MAMMOGRAPHY ORDE OLEG Final Result * CBC with platelets and [...] MD LAB - BLOOD ORDERABLES Final Result LABORATORY [facility] [address] Lab (1st floor, no room number) [place] [address], [facility] * CT Chest Pulmonary Embolism w Contrast [...] CT CHEST PULMONARY EMBOLISM W CONTRAST LOCATION: [facility] DATE: 08/21/2023 INDICATION: Pleuritic chest pain, SOB, [...] CT CHEST PULMONARY EMBOLISM W CONTRAST LOCATION: [facility] DATE: 08/21/2023 INDICATION: Pleuritic chest pain, SOB, [...] areas of atelectasis or possible early infection. Justin Ocampo MD IMG CT ORDERABLES Final Resu lt * TSH with free T4 reflex (11/08/2022 10:08 AM CDT) TSH 0.77 0.30 - 4.20 uIU/mL 11/08/2022 8:59 PM CDT [facility] Blood BLOOD SPECIMEN / Unknown Venipuncture / Unknown 11/08/2022 10:08 AM CDT 11/08/2022 10:09 AM CDT Anil Zavala MD LAB - BLOOD ORDERABL ES Final Result [facility] [address] [facility], [address] [address], [facility] [phone] * Lipid panel reflex to direct LDL [...] Greater than or equal to 220 mg/dL Anil Zavala MD LAB - BLOOD ORDERABL ES Final Result LABORATORY [facility] [address] [facility], [address] [address], [facility] [phone] * DEXA HIP/PELVIS/SPINE - Future (04/26/2020 1:38 PM REEL CUTTER) Anatomical Region Laterality Modality Dexa Bone Mineral Den sity Narrative 04/27/2020 11:33 AM REEL CUTTER BONE DENSITOMETRY [address] [address] 04/26/2020 PATIENT: Aviva Mueller CHART: [id number] : 1950 AGE: [age] year old SEX: female REFERRING PROVIDER: Jacinta Ely MD PROCEDURE: Bone density scanning was performed using DXA technology of the lumbar spine and hip. Scanning was performed on a [employer] scanner. Reporting is completed in the form [...] years. Aviva Murillo M.D. Electronically signed Jacinta Eyl MD IMG DEXA ORDERABLES Final Resul t * Hepatitis C Screen Reflex to HCV RNA Quant and Genotype (04/05/2020 5:30 PM REEL CUTTER) Hepatitis C Antibody Nonreactive NR^Nonre active 04/06/2020 4:24 PM REEL CUTTER [facility] Comment: Assay performance characteristics have not been established for newborns, infants, and children Blood specimen (specimen) 04/05/2020 5:30 PM REEL CUTTER 04/05/2020 5:35 PM REEL CUTTER Jacinta Ely MD LAB - BLOOD ORDERABLES Final Re sult [facility] [address] [place] [address] * COLONOSCOPY - HIM SCAN (08/16/2016 12:00 AM CDT) 08/16/2016 us Provider Outside PROCEDURES Final Result from Last 3 Months or Most Recently Relevant to Health Maintenance Additional Health Concerns Infection Onset Date Last Indicated 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 12/20/2023 Insurance MEDICARE [employer] [place] [address] [facility] MEDICARE ADVANTAGE MEDICARE [facility] [address] BCBS [place] [address] [facility] [address] [address] Advance Directives For more information, please contact: [phone] * Full Code (Latest Code Status on [...] patie nt/ legal decision maker Care Teams Hotel Clerk Relationship Specialty Start Date End Date Hortensia Aguilar APRN GLASS BLOWER HELPER [address] [place] [address] PCP - General Family Medicine 03/04/24 David Boyd MD [address] [facility] [address] [place], [place] [address] Urology 03/05/20 [place] [address] [place] [address] Assigned PCP 12/03/21 Reji Coelho MD 500 [place] [address] Dermatology 11/27/22 Anil Zavala MD [address] [place] [address] Hospitalist Internal Medicine 12/01/22 Anthony Kraus MD [address] [place] [address] Cardiovascular & Thoracic Surgery 12/01/22 Anthony Kraus MD [address] [place] [address] Assigned Heart and Vascular Provider 12/30/22 Sandra Luis MD [address] [facility] Thanh [address] [address] Assigned Surgical Provider 02/23/24
--- OUTSIDE RECORDS SUMMARY | 2024-04-18 20:39 | XMS_ITS | Encounter Summary ---
Author Organization [facility] Address [address] [place] [address]. [place] [address] Care Team Providers Care Float Operator Name Role Phone David Boyd MD Unavailable [phone] Marly Marcano MD Unavailable [phone] Reji Coelho MD Unavailable Anil Zavala MD Unavailable [phone] Anthony Kraus MD Unavailable [phone] Anthony Kraus MD Unavailable [phone] Sandra Luis MD Unavailable Hortensia Aguilar APRN [facility] Primary Care Pro vider Encounter Details Date Type Department Care Team (Latest Contact Info) Description 04/06/2024 Travel Social History Tobacco Use Types Packs/Day Years Used Date Smoking Tobacco: Every Day Cigarettes 0.5 10 Smokeless Tobacco: Current Alcohol Use Standard Drinks/Week Comments No 0 [...] week 11/20/2022 How often do you attend latter day or jew serv ices? Never 11/20/2022 Do you belong to any clubs o r organizations such as latter day groups, unions, fraternal or athletic groups, or [...] Answer Date Recorded PHQ-2 Score 0 05/11/2023 [facility] - Occupational Stress Questionnaire Answer Date [...] place to sleep or slept in a usp (including now)? No 11/20/2022 Adolescent Education Answer [...] Sex Assigned at Female 05/01/2020 8:36 AM MEDICAL RECORDS ASSISTANT Legal Sex Female 3:25 AM MEDICAL RECORDS ASSISTANT Gender Identity Female 05/01/2020 8:36 AM MEDICAL RECORDS ASSISTANT Sexual Orientation Not on file documented as of this encounter Plan of Treatment Upcoming Encounters Date Type Department Care Team (Late st Contact Info) Description 04/30/2024 11:00 AM MEDICAL RECORDS ASSISTANT Office Visit [facility] [id number] [place] [phone] Hortensia Aguilar APRN LEAD INSPECTOR [address] [place] [address] documented as of this encounter Visit Diagnoses Not on filedocumented in this encounter Additional Health Concerns Infection Onset Date Last Indicated Resolved Time 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 12/20/2023 Assessment Noted Time PHQ-9 Depression Total Score: 0 12/12/19 21 7:02 AM CDT documented as of this encounter Care Teams Float Operator Relationship Specialty Start Date End Date Hortensia Aguilar APRN LEAD INSPECTOR [address] [place] [address] PCP - General Family Medicine 03/04/24 David Boyd MD [address] [place], [place] [address] Urology 03/05/20 [place] [address] [place], [place] [id number] Assigned PCP 12/03/21 Reji Coelho MD 500 [place], [place] [address] Dermatology 11/27/22 Anil Zavala MD [address] [place], [place] [address] Hospitalist Internal Medicine 12/01/22 Anthony Kraus MD [address] [place], [place] [address] Cardiovascular & Thoracic Surgery 12/01/22 Anthony Kraus MD [address] [place], [place] [address] Assigned Heart and Vascular Provider 12/30/22 Sandra Luis MD [address] [place] [address] Assigned Surgical Provider 02/23/24 documented as of this encounter
--- OUTSIDE RECORDS SUMMARY | 2024-04-18 20:39 | XMS_ITS | Encounter Summary ---
Author Organization [facility] Address [address] [place] [address]. [place] [address] Care Team Providers Care Power Originator Name Role Phone David Boyd MD Unavailable [phone] Coming Marly Villegas MD Primary Care Provid er Coming Marly Villegas MD Unavailable [phone] Reji Coelho MD Unavailable Anil Zavala MD Unavailable [phone] Anthony Kraus MD Unavailable [phone] Anthony Kraus MD Unavailable [phone] Pari Aggarwal RN Unavailable Unavailable Reji Coelho MD Unavailable Clement Carias MD Unavailable [phone] Chyna Taylor PA-C Unavailable [phone] Sandra Luis MD Unavailable [phone] Hortensia Aguilar APRN CARDIAC CATH TECHNOLOGIST Primary Care Pro vider Encounter Details Date Type Department Care Team (Late st Contact Info) Description 01/24/2023 [facility] Medical Advice [address] [address] Aviva Chang, RN Social History Tobacco Use Types Packs/Day Years Used Date Smoking Tobacco: Some Days Cigarettes 0.5 10 Smokeless Tobacco: Current Alcohol [...] week 11/20/2022 How often do you attend protestant or alevism serv ices? Never 11/20/2022 Do you belong to any clubs o r organizations such as protestant groups, unions, fraternal or athletic groups, or [...] PHQ-2 Answer Date Recorded PHQ-2 Score 0 11/27/2022 [facility] - Occupational Stress Questionnaire Answer Date Recorded [...] place to sleep or slept in a skilled nursing (including now)? No 11/20/2022 Adolescent Education Answer Date Record ed Getting School Help Needed Not on file 12/23 Comments No Sex and Gender Information Value Date Recorded Sex Assigned at Female 05/01/2020 8:36 AM CONSTRUCTION PLUMBER Legal Sex Female 3:25 AM CONSTRUCTION PLUMBER Gender Identity Female 05/01/2020 8:36 AM CONSTRUCTION PLUMBER Sexual Orientation Not on file COVID-19 Exposure Response Date Recorded In the last 10 days, have yo u been in contact with someone who was confirmed or suspected to have Coronavirus/COVID-19? No / Unsure 12/25/2022 11:22 AM CDT documented as of this encounter Plan of Treatment Upcoming Encounters Date Type Department Care Team (Late st Contact Info) Description 04/30/2024 11:00 AM CONSTRUCTION PLUMBER Office Visit [address] [phone] Hortesnia Aguilar APRN [address] [phone] documented as of this encounter Visit Diagnoses Not on filedocumented in this encounter Additional Health Concerns Infection Onset Date Last Indicated Resolved Time 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 12/20/2023 Rule Out COVID-19 08/21/2023 08/21/2023 08/21/2023 7:28 PM CDT Rule Out COVID-19 09/05/2023 09/05/2023 09/05/2023 1:51 PM CDT Assessment Noted Time PHQ-9 Depression Total Score: 0 12/12/19 7:02 AM CDT documented as of this encounter Care Teams Power Originator Relationship Specialty Start [place] [address] [place] [address] PCP - General Family Medicine 06/21/21 03/03/24 Hortensia Aguilar APRN CARDIAC CATH TECHNOLOGIST [address] [place] [address] PCP - General Family Medicine 03/04/24 David Boyd MD [address] [address] Urology 03/05/20 [place] [address] [place] [address] Assigned PCP 12/03/21 Reji Coelho MD 500 [place] [address] Dermatology 11/27/22 Anil Zavala MD [address] [place] [address] Hospitalist Internal Medicine 12/01/22 Anthony Kraus MD 909 [place] [address] Cardiovascular & Thoracic Surgery 12/01/22 Anthony Kraus MD [address] [place] [address] Assigned Heart and Vascular Provider 12/30/22 Pari Aggarwal, RN Specialty As400 Administrator 01/19/23 06/15/23 Reji Coelho MD [address] [place] [address] Assigned Surgical Provider 02/17/23 05/03/23 Clement Carias MD [address] [place] [address] Assigned Surgical Provider 05/04/23 12/23/23 Chyna Taylor PA-C [address] [place] [address] Assigned Surgical Provider 12/24/23 02/22/24 Sandra Luis MD 65[address] [facility] [address] [address] Assigned Surgical Provider 02/23/24 documented as of this encounter
--- OUTSIDE RECORDS SUMMARY | 2024-04-18 20:39 | XMS_ITS | Encounter Summary ---
Author Organization [facility] Address [facility] [place] [address] Care Team Providers Care Publications Inspector Name Role Phone David Boyd MD Unavailable Marly Marcano MD Unavailable [phone] Reji Coelho MD Unavailable Anil Zavala MD Unavailable [phone] Anthony Kraus MD Unavailable [phone] Anthony Kraus MD Unavailable [phone] Sandra Luis MD Unavailable Hortensia Aguilar APRN [facility] Primary Care Pro vider Encounter Details Date Type Department Care Team (Late st Contact Info) Description 04/07/2024 MyC Medical Advice [address] [address] Romaine Michael APRN [facility] [phone] [place] [address] Social History Tobacco Use Types Packs/Day Years [...] week 11/20/2022 How often do you attend zoroastrianism or caodaism serv ices? Never 11/20/2022 Do you belong to any clubs o r organizations such as zoroastrianism groups, unions, fraternal or athletic groups, or [...] Answer Date Recorded PHQ-2 Score 0 05/11/2023 [facility] - Occupational Stress [...] place to sleep or slept in a penitentiary (including now)? No 11/20/2022 Adolescent Education Answer [...] Sex Assigned at Female 05/01/2020 8:36 AM FIELD EVIDENCE TECHNICIAN Legal Sex Female 3:25 AM FIELD EVIDENCE TECHNICIAN Gender Identity Female 05/01/2020 8:36 AM FIELD EVIDENCE TECHNICIAN Sexual Orientation Not on file documented as of this encounter Plan of Treatment Upcoming Encounters Date Type Department Care Team (Late st Contact Info) Description 04/30/2024 11:00 AM FIELD EVIDENCE TECHNICIAN Office Visit [address] [phone] Hortensia Aguilar APRN [facility] [phone] [place] [phone] documented as of this encounter Visit Diagnoses Not on filedocumented in this encounter Additional Health Concerns Infection Onset Date Last Indicated Resolved Time 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 12/20/2023 Assessment Noted Time PHQ-9 Depression Total Score: 0 12/12/19 21 7:02 AM CDT documented as of this encounter Care Teams Publications Inspector Relationship Specialty Start Date End Date Hortensia Aguilar APRN CNP [address] [place] [address] PCP - General Family Medicine 03/04/24 David Boyd MD [address] [place] [address] Urology 03/05/20 [place] [address] [place], [place] [phone] Assigned PCP 12/03/21 Reji Coelho MD 500 [place], [place] [address] Dermatology 11/27/22 Anil Zavala MD [address] [place] [address] Hospitalist Internal Medicine 12/01/22 Anthony Kraus MD 909 [place] [address] Cardiovascular & Thoracic Surgery 12/01/22 Anthony Kraus MD [address]09 [place] [address] Assigned Heart and Vascular Provider 12/30/22 Sandra Luis MD [address] [place] [address] Assigned Surgical Provider 02/23/24 documented as of this encounter
--- OUTSIDE RECORDS SUMMARY | 2024-04-18 20:39 | XMS_ITS | Encounter Summary ---
Author Organization [place] [facility] [place] [address] Care Team Providers Care Chemical Maker Name Role Phone David Boyd MD Unavailable [phone] Marly Marcano MD Unavailable [phone] Reji Coelho MD Unavailable Anil Zavala MD Unavailable [phone] Anthony Kraus MD Unavailable [phone] Anthony Kraus MD Unavailable [phone] Sandra Luis MD Unavailable Hortensia Aguilar APRN RECOVERY ASSISTANT Primary Care Pro vider Reason for Visit * Reason Comments Thyroid Problem NEUROPATHY Urinary Problem Refill for medicatio n for frequent UTI's Encounter Details Date Type Department Care Team (Late st Contact Info) Description 03/06/2024 11:30 AM UTILITIES ESTIMATOR AND DRAFTER Office Visit [address] [phone] Romaine Michael APRN [address] [address] Hypothyroidism, unspecified type (Primary Dx); Peripheral polyneuropathy; Recurrent UTI; Chronic obstructive pulmonary disease, unspecified COPD type (H) Social History Tobacco Use Types Packs/Day Years [...] week 11/20/2022 How often do you attend shinto or nondenominational serv ices? Never 11/20/2022 Do you belong to any clubs o r organizations such as shinto groups, unions, fraternal or athletic groups, or [...] Answer Date Recorded PHQ-2 Score 0 05/11/2023 [facility] - Occupational [...] the money to buy more. Never true 08/21/20 23 Within the past 12 months, t [...] place to sleep or slept in a care home (including now)? No 11/20/2022 Adolescent Education Answer [...] Sex Assigned at Female 05/01/2020 8:36 AM UTILITIES ESTIMATOR AND DRAFTER Legal Sex Female 3:25 AM UTILITIES ESTIMATOR AND DRAFTER Gender Identity Female 05/01/2020 8:36 AM UTILITIES ESTIMATOR AND DRAFTER Sexual Orientation Not on file documented as of this encounter Last Filed Vital Signs Vital Sign Reading Time Taken Comments Blood Pressure 151/65 03/06/2024 11:22 AM UTILITIES ESTIMATOR AND DRAFTER Pulse 84 03/06/2024 11:22 AM UTILITIES ESTIMATOR AND DRAFTER Temperature 36.8 C (98.3 F) 03/06/2024 11:02 AM UTILITIES ESTIMATOR AND DRAFTER Respiratory Rate 16 03/06/2024 11:0 2 AM UTILITIES ESTIMATOR AND DRAFTER Oxygen Saturation 100% 03/06/2024 11: 22 AM UTILITIES ESTIMATOR AND DRAFTER Inhaled Oxygen Concentration - - Weight 72.4 kg (159 lb 11.2 oz) 024 11:02 AM UTILITIES ESTIMATOR AND DRAFTER Height 159.4 cm (5' 2.75) 03/06/2024 1 1:02 AM UTILITIES ESTIMATOR AND DRAFTER Body Mass Index 28.52 03/06/2024 11:02 AM UTILITIES ESTIMATOR AND DRAFTER documented in this encounter Patient Instructions * Patient Instructions* Romaine Michael APRN CNP - 03/06/2024 11:30 AM UTILITIES ESTIMATOR AND DRAFTER -Refill on medications -Follow up at up coming visit to discuss future refills and if any concerns there w/ PCP -Follow up on coverage for Trelegy (aerosol) vs Breztri (powder version of Trelegy) as well as Ventolin -message me on this and if covered I will place orders. ITIES ESTIMATOR AND DRAFTER ITIES ESTIMATOR AND DRAFTER ITIES ESTIMATOR AND DRAFTER documented in this encounter Progress Notes * Romaine Michael APRN CNP - 03/06/2024 11:30 AM CST Assessment & Plan (E03.9) Hypothyroidism, unspecified type (primary encounter diagnosis) Comment: Reviewing chart patient has been taking levothyroxine and liothyronine in combination for the past 14+ years. TSH looks to be under good control. Will refill patient's medications today. Patient will be due for TSH and other labs by July next year. Discussed with patient to follow-up with PCP in April to discuss future refills and if there are any concerns that need to be addressed. Patient fully understands and is agreeable with plan of care, at this point patient will follow up as needed unless acute concerns arise in the meantime. Plan: levothyroxine (SYNTHROID/LEVOTHROID) 112 MCG tablet, liothyronine (CYTOMEL) 5 MCG tablet (G62.9) Peripheral polyneuropathy Comment: Patient recently started. PDMP reviewed. Will refill gabapentin. 3 months worth provided, would like patient to follow-up at upcoming visit with PCP to discuss whether neuropathy better or not w/ Gabapentin. If still continued to be uncontrolled may need to have alternative regimen. Patient fully understands and is agreeable with plan of care, at this point patient will follow up as needed unless acute concerns arise in the meantime. Plan: gabapentin (NEURONTIN) 300 MG capsule (N39.0) Recurrent UTI Comment: Use for UTI prophylaxis, chart review notes has been on for 8+ years. Patient follows urology once a year. Trimethoprim refilled. Plan: trimethoprim (TRIMPEX) 100 MG tablet (J44.9) Chronic obstructive pulmonary disease, unspecified COPD type (H) Comment: Patient recently acquired new insurance. Discussed with patient in the past potential to switch to Trelegy, patient wants to check with insurance first to see if there is coverage on this. Patient is to follow-up with me if she has coverage and at that time we will place orders for Trelegyand refills for Ventolin. Patient fully understands and is agreeable with plan of care, at this point patient will follow up as needed unless acute concerns arise in the meantime. The longitudinal plan of care for the diagnosis(es)/condition(s) as documented were addressed during this visit. Due to the added complexity in care, I will continue to support Aviva in the subsequentmanagement and with ongoing continuity of care. Subjective Aviva is a 73 year old, presenting for the following health issues: Thyroid Problem, NEUROPATHY, and Urinary Problem (Refill for medication for frequent UTI's/) 03/06/2024 11:01 AM Additional Questions Roomed by Prabha Dejesus MA HPI Hypothyroidism Follow-up Since last visit, patient describes the following symptoms: Weight stable, no hair loss, no skin changes, no constipation, no loose stools Frequent UTI's Peripheral polyneuropathy Requesting refill of gabapentin Review of Systems Constitutional, cardiovascular, pulmonary, GI, , neuro, skin, endocrine systems are negative, except as otherwise noted. Objective BP (!) 151/65 (BP Location: Left arm, Patient Position: Sitting, Cuff Size: Adult Regular) Pulse 84 Temp 98.3 ??F (36.8 ??C) (Temporal) Resp 16 Ht 1.594 m (5' 2.75) Wt 72.4 kg (159 lb 11.2oz) LMP (LMP Unknown) SpO2 100% BMI 28.52 kg/m?? Body mass index is 28.52 kg/m??. Physical Exam Vitals and nursing note reviewed. Constitutional: Appearance: Normal appearance. She is well-developed. She is not ill-appearing or toxic-appearing. Cardiovascular: Rate and Rhythm: Normal rate. Pulmonary: Effort: Pulmonary effort is normal. Neurological: Mental Status: She is alert. Psychiatric: Attention and Perception: Attention and perception normal. Mood and Affect: Mood normal. Speech: Speech normal. Behavior: Behavior normal. Behavior is cooperative. Thought Content: Thought content normal. Judgment: Judgment normal. Signed Electronically by: Romaine Michael APRN CNP ITIES ESTIMATOR AND DRAFTER documented in this encounter Plan of Treatment Upcoming Encounters Date Type Department Care Team (Late st Contact Info) Description 04/30/2024 11:00 AM UTILITIES ESTIMATOR AND DRAFTER Office Visit [address] [phone] Hortensia Aguilra APRN [facility] [id number] [place] [address] documented as of this encounter Visit Diagnoses Diagnosis Hypothyroidism, unspecified type- Primary Peripheral polyneuropathy Unspecified hereditary and idiopathic peripheral neuropathy Recurrent UTI Urinary tract infection, site not specified Chronic obstructive pulmonary disease, unspecified COPD type (H) documented in this encounter Additional Health Concerns Infection Onset Date Last Indicated Resolved Time 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 12/20/2023 Assessment Noted Time PHQ-9 Depression Total Score: 0 12/12/19 21 7:02 AM CDT documented as of this encounter Care Teams Chemical Maker Relationship Specialty Start Date End Date Hortensia Aguilar APRN RECOVERY ASSISTANT [id number] [place] [address] PCP - General Family Medicine 03/04/24 David Boyd MD [address] [facility] [address] [place] [address] Urology 03/05/20 [place] [address] [place] [address] Assigned PCP 12/03/21 Reji Coelho MD [address] [place] [address] Dermatology 11/27/22 Anil Zavala MD [address] [place] [address] Hospitalist Internal Medicine 12/01/22 Anthony Kraus MD [address] [place] [address] Cardiovascular & Thoracic Surgery 12/01/22 Anthony Kraus MD [address] [place] [address] Assigned Heart and Vascular Provider 12/30/22 Sandra Luis MD [address] [facility] [address] [place] [address] Assigned Surgical Provider 02/23/24 documented as of this encounter
--- OUTSIDE RECORDS SUMMARY | 2024-04-18 20:39 | XMS_ITS | Encounter Summary ---
Author Organization [place] Address [address] [place] [address]. [place] [address] Care Team Providers Care Potline Monitor Name Role Phone David Boyd MD Unavailable [phone] Halie Powers APRN DESK REPRESENTATIVE Unavailable [phone] Clement Carias MD Unavailable [phone] Marly Villegas MD Primary Care Provid er Coming Marly Villegas MD Unavailable [phone] Reji Coelho MD Unavailable Anil Zavala MD Unavailable [phone] Anthony Kraus MD Unavailable [phone] Anthony Kraus MD Unavailable Pari Aggarwal RN Unavailable Unavailable Reji Coelho MD Unavailable Clement Carias MD Unavailable [phone] Chyna Taylro PA-C Unavailable [phone] Sandra Luis MD Unavailable [phone] Hortensia Aguilar APRN DESK REPRESENTATIVE Primary Care Pro vider Reason for Visit * Reason Comments Medication Refill Encounter Details Date Type Department Care Team (Late st Contact Info) Description 11/17/[address] [phone] [place] [id number] [place] [phone] Medication Refill Social History Tobacco Use Types Packs/Day Years Used Date Smoking Tobacco: Every Day Cigarettes 1 56 Smokeless Tobacco: Never Alcohol Use Standard Drinks/Week Comments No 0 (1 standard drink = 0.6 oz pur e alcohol) PHQ-2 Answer Date Recorded PHQ-2 Score 0 09/13/2021 Comments No Sex and Gender Information Value Date Recorded Sex Assigned at Female 05/01/2020 8:36 AM SPINDLE CARVER Legal Sex Female 3:25 AM SPINDLE CARVER Gender Identity Female 05/01/2020 8:36 AM SPINDLE CARVER Sexual Orientation Not on file documented as of this encounter Miscellaneous Notes * Telephone Encounter - Evelin Lizama RN - 11/17/2021 2:36 PM CDT Routing refill request to provider for review/approval because: Drug not on the [facility] refill protocol documented in this encounter Plan of Treatment Upcoming Encounters Date Type Department Care Team (Late st Contact Info) Description 04/30/2024 11:00 AM SPINDLE CARVER Office Visit [facility] [id number] [place] [phone] Hortensia Aguilar APRN [facility] [address] [place] [phone] documented as of this encounter Visit Diagnoses Diagnosis Peripheral polyneuropathy Unspecified hereditary and idiopathic peripheral neuropathy documented in this encounter Additional Health Concerns Infection Onset Date Last Indicated Resolved Time 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 12/20/2023 Rule Out C-difficile 11/25/2021 11/25/2021 022 11:39 PM CDT Rule Out COVID-19 08/21/2023 08/21/2023 08/21/2023 7:28 PM CDT Rule Out COVID-19 09/05/2023 09/05/2023 09/05/2023 1:51 PM CDT Assessment Noted Time PHQ-9 Depression Total Score: 0 12/12/19 21 7:02 AM CDT documented as of this encounter Care Teams Potline Monitor Relationship Specialty Start [place] [address] [place] [address] PCP - General Family Medicine 06/21/21 03/03/24 Hortensia Aguilar APRN DESK REPRESENTATIVE [address] [place] [address] PCP - General Family Medicine 03/04/24 David Boyd MD [address] [address] Urology 03/05/20 Halie Powesr APRN DESK REPRESENTATIVE [address] [facility] [address] Assigned PCP 06/13/20 12/02/21 Clement Carias MD [address] [place] [address] Assigned Surgical Provider 02/06/21 11/10/22 [place] [address] [place] [address] Assigned PCP 12/03/21 Reji Coelho MD [address] [place] [address] Dermatology 11/27/22 Anil Zavala MD [address] [place] [address] Hospitalist Internal Medicine 12/01/22 Anthony Kraus MD [address] [place] [address] Cardiovascular & Thoracic Surgery 12/01/22 Anthony Kraus MD [address] [place] [address] [id number] Assigned Heart and Vascular Provider 12/30/22 Pari Aggarwal, RN Specialty Card Filer 01/19/23 06/15/23 Reji Coelho MD [address] [place] [address]125 Assigned Surgical Provider 02/17/23 05/03/23 Clement Carias MD [address] [place] [id number] Assigned Surgical Provider 05/04/23 12/23/23 Chyna Taylor PA-C [address] [place] [address] [id number] Assigned Surgical Provider 12/24/23 02/22/24 Sandra Luis MD [address] 1560[address] Assigned Surgical Provider 02/23/24 documented as of this encounter
--- OUTSIDE RECORDS SUMMARY | 2024-04-18 20:39 | XMS_ITS | Encounter Summary ---
Author Organization [place] Address [address] [place] [address]. [place] [address] Care Team Providers Care Chro Name Role Phone David Boyd MD Unavailable [phone] Clement Carias MD Unavailable [phone] Marly Villegas MD Primary Care Provid er Coming Marly Villegas MD Unavailable [phone] Reji Coelho MD Unavailable Anil Zavala MD Unavailable [phone] Anthony Kraus MD Unavailable [phone] Anthony Kraus MD Unavailable [phone] Pari Aggarwal RN Unavailable Unavailable Reji Coelho MD Unavailable Clement Carias MD Unavailable [phone] Chyna Taylor PA-C Unavailable [phone] Sandra Luis MD Unavailable [phone] Hortensia Aguilar APRN [facility] Primary Care Pro vider Reason for Visit * Reason Onset Date Comments Symptoms 06/29/2022 UTI Encounter Details Date Type Department Care Team (Late st Contact Info) Description 06/29/[address] [facility] [address] [place] [phone] Clement Carias MD [address] [place] [address] Symptoms (UTI) Social History Tobacco Use Types Packs/Day Years Used Date Smoking Tobacco: Every Day Cigarettes 1 56 Smokeless Tobacco: Never Alcohol Use Standard Drinks/Week Comments No 0 (1 standard drink = 0.6 oz pur e alcohol) PHQ-2 Answer Date Recorded PHQ-2 Score 0 09/13/2021 Comments No Sex and Gender Information Value Date Recorded Sex Assigned at Female 05/01/2020 8:36 AM TANDEM MILL ROLLER Legal Sex Female 3:25 AM TANDEM MILL ROLLER Gender Identity Female 05/01/2020 8:36 AM TANDEM MILL ROLLER Sexual Orientation Not on file COVID-19 Exposure Response Date Recorded In the last 10 days, have yo u been in contact with someone who was confirmed or suspected to have Coronavirus/COVID-19? No / Unsure 06/20/2022 12:27 PM CDT documented as of this encounter Miscellaneous Notes * Telephone Encounter - Alison Miranda LPN - 06/29/2022 10:31 AM CDT Orders placed.she will go to [place] today,advised it takes 2-3 for culture results. Alison Miranda LPN * Telephone Encounter - Camilla Venegas - 06/29/2022 10:26 AM CDT Health Call Center Phone Message May a detailed message be left on voicemail: yes Reason for Call: Symptoms or Concerns If patient has red-flag symptoms, warm transfer to triage line Current symptom or concern: pt is calling, she thinks she has another UTI, frequent urination and side pain for the past month, wondering if she can come in for a UA/UC, please call aviva, thank you Symptoms have been present for: 1 month(s) Has patient previously been seen for this? No Are there any new or worsening symptoms? Yes: not improving Action Taken: Message routed to: Other: uro Travel Screening: Not Applicable documented in this encounter Plan of Treatment Upcoming Encounters Date Type Department Care Team (Late st Contact Info) Description 04/30/2024 11:00 AM TANDEM MILL ROLLER Office Visit [facility] [address] [place] [address] Hortensia Aguilar APRN SALES AND MERCHANDISING REPRESENTATIVE [address] [place] [address] documented as of this encounter Visit Diagnoses Not on filedocumented in this encounter Additional Health Concerns Infection Onset Date Last Indicated Resolved Time 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 12/20/2023 Rule Out COVID-19 08/21/2023 08/21/2023 08/21/2023 7:28 PM CDT Rule Out COVID-19 09/05/2023 09/05/2023 09/05/2023 1:51 PM CDT Assessment Noted Time PHQ-9 Depression Total Score: 0 12/12/19 7:02 AM CDT documented as of this encounter Care Teams Chro Relationship Specialty Start Date End Date July MD Krystal [address] [place] [address] PCP - General Family Medicine 06/21/21 03/03/24 Hortensia Aguilar APRN SALES AND MERCHANDISING REPRESENTATIVE [address] [place] [address] PCP - General Family Medicine 03/04/24 David Boyd MD [address] [place] [address] [place] [address] Urology 03/05/20 Clement Carias MD [address] [place] [address] [phone] Assigned Surgical Provider 02/06/21 11/10/22 [place] [address] [place] [address] Assigned PCP 12/03/21 Reji Coelho MD [address] [place] [address] [facility] 11/27/22 Anil Zavala MD [address] [place] [address] Hospitalist Internal Medicine 12/01/22 Anthony Kraus MD [address] [place] [address] Cardiovascular & Thoracic Surgery 12/01/22 Anthony Kraus MD [address] [place] [address] Assigned Heart and Vascular Provider 12/30/22 Pari Aggarwal, RN Specialty Diaper Folder 01/19/23 06/15/23 Reji Coelho MD [address] [place] [address] Assigned Surgical Provider 02/17/23 05/03/23 Clement Carias MD [address] [place] [address] Assigned Surgical Provider 05/04/23 12/23/23 Chyna Taylor PA-C [address] [place] [address] Assigned Surgical Provider 12/24/23 02/22/24 Sandra Luis MD [address] [place] [address] Assigned Surgical Provider 02/23/24 documented as of this encounter
--- OUTSIDE RECORDS SUMMARY | 2024-04-18 20:39 | XMS_ITS | Encounter Summary ---
Author Organization [place] Address [address] [place] [address]. [place] [address] Care Team Providers Care Agricultural Commodities Inspector Name Role Phone David Boyd MD Unavailable [phone] Halie Powers APRN TECHNICAL PROJECT COORDINATOR Unavailable [phone] Clement Carias MD Unavailable [phone] Marly Villegas MD Primary Care Provid er Coming Marly Villegas MD Unavailable [phone] Reji Coelho MD Unavailable Anil Zavala MD Unavailable [phone] Anthony Kraus MD Unavailable Anthony Kraus MD Unavailable [phone] Pari Aggarwal RN Unavailable Unavailable Reji Coelho MD Unavailable Clement Carias MD Unavailable [phone] Chyna Taylor PA-C Unavailable [phone] Sandra Luis MD Unavailable [phone] Hortensia Aguilar APRN TECHNICAL PROJECT COORDINATOR Primary Care Pro vider Encounter Details Date Type Department Care Team (Late st Contact Info) Description 09/16/2021 [facility] [address] [place] [address] Gege Stratton, RN Social History Tobacco Use Types Packs/Day Years Used Date Smoking Tobacco: Every Day Cigarettes 1 56 Smokeless Tobacco: Never Alcohol Use Standard Drinks/Week Comments No 0 (1 standard drink = 0.6 oz pur e alcohol) PHQ-2 Answer Date Recorded PHQ-2 Score 0 09/13/2021 Comments No Sex and Gender Information Value Date Recorded Sex Assigned at Female 05/01/2020 8:36 AM HOSPICE EDUCATOR Legal Sex Female 3:25 AM HOSPICE EDUCATOR Gender Identity Female 05/01/2020 8:36 AM HOSPICE EDUCATOR Sexual Orientation Not on file COVID-19 Exposure Response Date Recorded In the last 10 days, have yo u been in contact with someone who was confirmed or suspected to have Coronavirus/COVID-19? No / Unsure 09/13/2021 8:32 AM CDT documented as of this encounter Plan of Treatment Upcoming Encounters Date Type Department Care Team (Late st Contact Info) Description 04/30/2024 11:00 AM HOSPICE EDUCATOR Office Visit [address] [phone] Hortensia Aguilar, [facility] [id number] [place] [phone] documented as of this encounter Visit Diagnoses Not on filedocumented in this encounter Additional Health Concerns Infection Onset Date Last Indicated Resolved Time 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 12/20/2023 C-difficile 09/15/2021 09/15/2021 10/15/2021 11:3 9 PM CDT Rule Out C-difficile 11/25/2021 11/25/2021 022 11:39 PM CDT Rule Out COVID-19 08/21/2023 08/21/2023 08/21/2023 7:28 PM CDT Rule Out COVID-19 09/05/2023 09/05/2023 09/05/2023 1:51 PM CDT Assessment Noted Time PHQ-9 Depression Total Score: 0 12/12/19 7:02 AM CDT documented as of this encounter Care Teams Agricultural Commodities Inspector Relationship Specialty Start [place] [address] [place] [address] PCP - General Family Medicine 06/21/21 03/03/24 Hortensia Aguilar APRN TECHNICAL PROJECT COORDINATOR [address] [facility] [place] [place] [phone] PCP - General Family Medicine 03/04/24 David Boyd MD [address] [place] [address] [place] [address] [id number] Urology 03/05/20 Halie Powers APRN TECHNICAL PROJECT COORDINATOR [address] [place] [address] Assigned PCP 06/13/20 12/02/21 Clement Carias MD [address] [place], [place] [address]225 Assigned Surgical Provider 02/06/21 11/10/22 [place] [address] [facility] [place] [address] Assigned PCP 12/03/21 Reji Coelho MD [address] [place], [place] 270475 Dermatology 11/27/22 Anil Zavala MD [address] [place] [address] Hospitalist Internal Medicine 12/01/22 Anthony Kraus MD [address] [place] [address] Cardiovascular & Thoracic Surgery 12/01/22 Anthony Kraus MD [address] [place] [address] Assigned Heart and Vascular Provider 12/30/22 Pari Aggarwal, RN Specialty Dividend Deposit Voucher Clerk 01/19/23 06/15/23 Reji Coelho MD [address] [place], [place] [address]24445 Assigned Surgical Provider 02/17/23 05/03/23 Clement Carias MD [address] [place] [address] [id number] Assigned Surgical Provider 05/04/23 12/23/23 Chyna Taylor PA-C [address] [place] [address] 198935 Assigned Surgical Provider 12/24/23 02/22/24 Sandra Luis MD [address] [facility] [address] [address] Assigned Surgical Provider 02/23/24 documented as of this encounter
--- OUTSIDE RECORDS SUMMARY | 2024-04-18 20:39 | XMS_ITS | Encounter Summary ---
Author Organization [facility] Address [address] [place] [address]. [place] [address] Care Team Providers Care Business Systems Architect Name Role Phone David Boyd MD Unavailable [phone] Clement Carias MD Unavailable [phone] Marly Marcano MD Primary Care Provid er Marly Marcano MD Unavailable + [phone] Reji Coelho MD Unavailable Anil Zavala MD Unavailable [phone] Anthony Kraus MD Unavailable [phone] Anthony Kraus MD Unavailable [phone] Pari Aggarwal RN Unavailable Unavailable Reji Coelho MD Unavailable Clement Carias MD Unavailable [phone] Chyna Taylor PA-C Unavailable [phone] Sandra Luis MD Unavailable [phone] Hortensia Aguilar APRN [facility] Primary Care Pro vider Encounter Details Date Type Department Care Team (Late st Contact Info) Description 05/02/2022 MyC Medical Advice [facility] [id number] [place] [phone] [place] [address] [place] [address] Social History Tobacco Use Types Packs/Day Years Used Date Smoking Tobacco: Every Day Cigarettes 1 56 Smokeless Tobacco: Never Alcohol Use Standard Drinks/Week Comments No 0 (1 standard drink = 0.6 oz pur e alcohol) PHQ-2 Answer Date Recorded PHQ-2 Score 0 09/13/2021 Comments No Sex and Gender Information Value Date Recorded Sex Assigned at Female 05/01/2020 8:36 AM COLLECTIONS DIRECTOR Legal Sex Female 3:25 AM COLLECTIONS DIRECTOR Gender Identity Female 05/01/2020 8:36 AM COLLECTIONS DIRECTOR Sexual Orientation Not on file documented as of this encounter Plan of Treatment Upcoming Encounters Date Type Department Care Team (Late st Contact Info) Description 04/30/2024 11:00 AM COLLECTIONS DIRECTOR Office Visit [facility] [id number] [place] [phone] Hortensia Aguilar APRN [facility] [id number] [place] [address] documented as of this encounter Visit Diagnoses Not on filedocumented in this encounter Additional Health Concerns Infection Onset Date Last Indicated Resolved Time 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 12/20/2023 Rule Out COVID-19 08/21/2023 08/21/2023 08/21/2023 7:28 PM CDT Rule Out COVID-19 09/05/2023 09/05/2023 09/05/2023 1:51 PM CDT Assessment Noted Time PHQ-9 Depression Total Score: 0 12/12/19 7:02 AM CDT documented as of this encounter Care Teams Business Systems Architect Relationship Specialty Start Date End Date Coming July MD Krystal [id number] [place] [address] PCP - General Family Medicine 06/21/21 03/03/24 Hortensia Aguilar APRN [facility] [id number] [place] [address] PCP - General Family Medicine 03/04/24 David Boyd MD [address] [facility] [address] [place] [address] Urology 03/05/20 Clement Carias MD [address] [place] [address] Assigned Surgical Provider 02/06/21 11/10/22 [place] [address] [place], [place] [id number] Assigned PCP 12/03/21 Reji Coelho MD [address] [place] [address] Dermatology 11/27/22 Anil Zavala MD [address] [place] [address] Hospitalist Internal Medicine 12/01/22 Anthony Kraus MD [address] [place] [address] Cardiovascular & Thoracic Surgery 12/01/22 Anthony Kraus MD [address] [place] [address] Assigned Heart and Vascular Provider 12/30/22 Pari Aggarwal, RN Specialty Extractor Machine Operator 01/19/23 06/15/23 Reji Coelho MD 500 [place] [address] Assigned Surgical Provider 02/17/23 05/03/23 Clement Carias MD [address] [place] [address] Assigned Surgical Provider 05/04/23 12/23/23 Chyna Taylor PA-C [address] [place] [address] Assigned Surgical Provider 12/24/23 02/22/24 Sandra Luis MD [address] [facility] [address] [place] [address] Assigned Surgical Provider 02/23/24 documented as of this encounter
--- OUTSIDE RECORDS SUMMARY | 2024-04-18 20:39 | XMS_ITS | Encounter Summary ---
Author Organization [facility] Address [address] [place] [address]. [place] [address] Care Team Providers Care Mailroom Personnel Name Role Phone David Boyd MD Unavailable [phone] Marly Marcano MD Unavailable [phone] Reji Coelho MD Unavailable Anil Zavala MD Unavailable [phone] Anthony Kraus MD Unavailable [phone] Anthony Kraus MD Unavailable [phone] Sandra Luis MD Unavailable Hortensia Aguilar APRN [facility] Primary Care Pro vider Reason for Visit * Reason Onset Date Comments Refill Request 03/04/2024 Levothyroxine, l iothyronine, trimethoprim, gabapentin Encounter Details Date Type Department Care Team (Late st Contact Info) Description 03/04/2024 Refill [facility] [id number] [place] [phone] Coming Marly Villegas MD [address] [place] [address] Refill Request (Levothyroxine, liothyronine, trimethoprim, gabapentin) Social History Tobacco Use Types Packs/Day Years [...] week 11/20/2022 How often do you attend evangelical or voodoo serv ices? Never 11/20/2022 Do you belong to any clubs o r organizations such as evangelical groups, unions, fraternal or athletic groups, or [...] Answer Date Recorded PHQ-2 Score 0 05/11/2023 [facility] of Occupat ional [facility] - Occupational Stress Questionnaire Answer Date [...] place to sleep or slept in a snf (including now)? No 11/20/2022 Adolescent Education Answer [...] Sex Assigned at Female 05/01/2020 8:36 AM TILE TRIMMER Legal Sex Female 3:25 AM TILE TRIMMER Gender Identity Female 05/01/2020 8:36 AM TILE TRIMMER Sexual Orientation Not on file documented as of this encounter Miscellaneous Notes * Telephone Encounter - Ginny Colby RN - 03/04/2024 4:25 PM TILE TRIMMER Called and relayed provider message below. Pt states, Hortensia told me at my last appointment with her that she would prescribe the gabapentin for me. She asked me about it and I told her I still have some. She told me let me know if you need it and I will give it to you. Informed pt that she would need appointment for gabapentin per PCP Hortensia Aguilar APRN. Scheduled pt with Romaine Michael APRN CNP on 03/06/24 to discuss getting medications prescribed. Of note, the other 3 medications that pt is requesting (levothyroxine, liothyronine and trimethoprim) were being prescribed previously by primary care not specialty. Pt's previous PCP Marly Vides MD was prescribing these for pt prior to this year and pt switching to new PCP Hortensia Aguilar APRN. Routing to provider scheduled with to ensure appointment is appropriate and that medications can beprescribed in primary care for pt. Ginny Rea RN TRIMMER * Telephone Encounter - Hortensia Aguilar APRN CNP - 03/04/2024 3:50 PM CST Please call patient to relay message. We have not prescribed any of these meds since 2021 or 2022. Please see Endocrinology for you thyroid medicine (levothyroxine and liothyronine). Please see Urology for the antibiotic (trimethoprim). Please see Pain Clinic or us for the gabapentin. Hope this makes sense. Take care, Hortensia Aguilar APRN CNP TRIMMER * Telephone Encounter - Ginny Colby RN - 03/04/2024 12:17 PM TILE TRIMMER Called and spoke with pt. She informs that she had not realized that she ran out of liothyronine, levothyroxine, and trimethoprim until recently. T'd up meds and pharmacy and routing refill request to PCP to review and advise. Ginny Rea RN TRIMMER * Telephone Encounter - Kaley Price RN - 03/04/2024 12:08 PM CST Liothyronine: Clinic RN: Please investigate patient's chart or contact patient if the information cannot be foundbecause patient should have run out of this medication on 09/28/2023. Confirm patient is taking thismedication as prescribed. Document findings and route refill encounter to provider for approval or d enial. 2. Trimethoprim & Levothyroxine: Clinic RN: Please investigate patient's chart or contact patient if the information cannot be foundbecause patient should have run out of this medication on 11/28/2023. Confirm patient is taking thismedication as prescribed. Document findings and route refill encounter to provider for approval or d enial. Kaley Price RN, BSN [facility] TRIMMER * Telephone Encounter - Mayela Guerra RN - 03/04/2024 11:15 AM TILE TRIMMER Patient requesting refills of pended prescriptions. She is also requesting they are sent to [facility]. Routing to Refill Team for further review. Thanks! Mayela Martinez RN, BSN Clinic RN [facility] TRIMMER documented in this encounter Plan of Treatment Upcoming Encounters Date Type Department Care Team (Late st Contact Info) Description 04/30/2024 11:00 AM TILE TRIMMER Office Visit [address] [phone] Hortensia Aguilar APRN SERVICES DELIVERY DRIVER [address] [place] [address] documented as of this encounter Visit Diagnoses Diagnosis Hypothyroidism, unspecified type Recurrent UTI Urinary tract infection, site not specified Peripheral polyneuropathy Unspecified hereditary and idiopathic peripheral neuropathy documented in this encounter Additional Health Concerns Infection Onset Date Last Indicated Resolved Time 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 12/20/2023 Assessment Noted Time PHQ-9 Depression Total Score: 0 12/12/19 21 7:02 AM CDT documented as of this encounter Care Teams Mailroom Personnel Relationship Specialty Start Date End Date Hortensia Aguilar APRN SERVICES DELIVERY DRIVER [address] [place] [address] PCP - General Family Medicine 03/04/24 David Boyd MD [address] [place] [address] Urology 03/05/20 [place] [address] [place] [address] Assigned PCP 12/03/21 Reji Coelho MD 500 [place] [address] Dermatology 11/27/22 Anil Zavala MD [address] [place] [address] Hospitalist Internal Medicine 12/01/22 Anthony Kraus MD 909 [place] [address] Cardiovascular & Thoracic Surgery 12/01/22 Anthony Kraus MD 9 [place] [address] Assigned Heart and Vascular Provider 12/30/22 Sandra Luis MD [address] [place] [address] Assigned Surgical Provider 02/23/24 documented as of this encounter
--- OUTSIDE RECORDS SUMMARY | 2024-04-18 20:39 | XMS_ITS | Encounter Summary ---
Author Organization [facility] Address [address] [place] [address]. [place] [address] Care Team Providers Care Documentation Billing Clerk Name Role Phone David Boyd MD Unavailable [phone] Coming Marly Villegas MD Primary Care Provid er Coming Marly Villegas MD Unavailable Reji Coelho MD Unavailable Anil Zavala MD Unavailable [phone] Anthony Kraus MD Unavailable [phone] Anthony Kraus MD Unavailable [phone] Pari Aggarwal RN Unavailable Unavailable Reji Coelho MD Unavailable Clement Carias MD Unavailable [phone] Chyna Taylor PA-C Unavailable [phone] Sandra Luis MD Unavailable [phone] Hortensia Aguilar APRN [facility] Primary Care Pro vider Encounter Details Date Type Department Care Team (Late st Contact Info) Description 01/24/2023 [facility] [place] [address] [place] [address] David Boyd MD [address] [place] [address] [place] [address] Social History Tobacco Use Types Packs/Day Years [...] How often do you attend shinto or anabaptist serv ices? Never 11/20/2022 Do you belong [...] Answer Date Recorded PHQ-2 Score 0 11/27/2022 [facility] of Occupat ional Health - Occupational Stress [...] place to sleep or slept in a alf (including now)? No 11/20/2022 Adolescent Education Answer Date Record ed Getting School Help Needed Not on file 12/23 Comments No Sex and Gender Information Value Date Recorded Sex Assigned at Female 05/01/2020 8:36 AM CARDIOVASCULAR LAB DIRECTOR Legal Sex Female 3:25 AM CARDIOVASCULAR LAB DIRECTOR Gender Identity Female 05/01/2020 8:36 AM CARDIOVASCULAR LAB DIRECTOR Sexual Orientation Not on file COVID-19 Exposure Response Date Recorded In the last 10 days, have yo u been in contact with someone who was confirmed or suspected to have Coronavirus/COVID-19? No / Unsure 12/25/2022 11:22 AM CDT documented as of this encounter Plan of Treatment Upcoming Encounters Date Type Department Care Team (Late st Contact Info) Description 04/30/2024 11:00 AM CARDIOVASCULAR LAB DIRECTOR Office Visit [address] [phone] Hortensia Aguilar APRN [facility] [address] [place], [place] [phone] documented as of this encounter Visit Diagnoses Not on filedocumented in this encounter Additional Health Concerns Infection Onset Date Last Indicated Resolved Time 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 12/20/2023 Rule Out COVID-19 08/21/2023 08/21/2023 08/21/2023 7:28 PM CDT Rule Out COVID-19 09/05/2023 09/05/2023 09/05/2023 1:51 PM CDT Assessment Noted Time PHQ-9 Depression Total Score: 0 12/12/19 7:02 AM CDT documented as of this encounter Care Teams Documentation Billing Clerk Relationship Specialty Start [place] [address] [place] [address] PCP - General Family Medicine 06/21/21 03/03/24 Hortensia Aguilar APRN [employer] [address] [place] [address] PCP - General Family Medicine 03/04/24 David Boyd MD [address] [address] Urology 03/05/20 [place] [address] [place] [address] Assigned PCP 12/03/21 Reji Coelho MD [address] [place] [address] Dermatology 11/27/22 Anil Zavala MD [address] [place] [address] Hospitalist Internal Medicine 12/01/22 Anthony Kraus MD [address] [place] [address] Cardiovascular & Thoracic Surgery 12/01/22 Anthony Kraus MD [address] [place] [address] Assigned Heart and Vascular Provider 12/30/22 Pari Aggarwal, RN Specialty Inspector Balance Wheel Motion 01/19/23 06/15/23 Reji Coelho MD [address] [place] [address]4815 Assigned Surgical Provider 02/17/23 05/03/23 Clement Carias MD [address] [place] [address] Assigned Surgical Provider 05/04/23 12/23/23 Chyna Taylor PA-C [address] [place] [address] Assigned Surgical Provider 12/24/23 02/22/24 Sandra Luis MD [address] [place] [address] [place] [address] Assigned Surgical Provider 02/23/24 documented as of this encounter
--- OUTSIDE RECORDS SUMMARY | 2024-04-18 20:39 | XMS_ITS ---
Author Organization [facility] Address [facility] [place] [address] Care Team Providers Care Tableman Name Role Phone David Boyd MD Unavailable Marly Marcano MD Unavailable [phone] Reji Coelho MD Unavailable Anil Zavala MD Unavailable [phone] Anthony Kraus MD Unavailable [phone] Anthony Kraus MD Unavailable [phone] Sandra Luis MD Unavailable [phone] Hortensia Aguilar APRN [facility] Primary Care Pro vider Active Problems Problem Noted Date Diagnosed Date Anal fissure 01/31/2024 Purpura 01/23/2024 Pulmonary nodule 11/29/2022 Overview (11/29/2022): Referred to [facility] by [facility] Results Team. COPD (chronic obstructive pulmonary disease) Personal history of ovarian cancer 06/21/2021 History of gastric bypass 12/10/2020 Chronic bronchitis 05/29/2020 Stage 3a chronic kidney disease 04/05/2020 Age-related osteoporosis wit hout current pathological fracture 04/02/2020 Overview (06/21/2021): L-.3, LH-2.5, RH-2.3 Persistent disorder of initiating or maintaining sleep 11/04/2019 Tobacco abuse 11/04/2019 Other specified hypothyroidism 11/04/2019 History of pulmonary embolism 11/04/2019 Overview (06/21/2021): 2006 Nephrolithiasis 10/03/2019 Overview (10/03/2019): Added automatically from request for surgery [id number] Psoriasis 09/24/2017 Recurrent UTI 08/01/2017 Overview (04/17/2024): [...] deficiency anemia 08/25/1999 Asymptomatic varicose veins 08/25/1999 Current Oncology Plans No current plan information found. Past Plans No past plan information found. Radiation Treatments * No radiation treatments are documented for this patient in [facility]. Treatments may have been administered in another system. Lifetime Dose Tracking * Chemical Lifetime Dose Automatic Entry Manual Entr y CTDIvol 2.87 mGy 2.87 mGy 0 mGy DLP 147.2 mGy*cm 147.2 mGy*cm 0 mGy*cm Resolved Problems Problem Noted Date Diagnosed Date Resolved Date Malignant neoplasm of ovary, unspecified laterality 11/08/2022 11/27/2022 Thoracic back pain 11/18/2020 Morbid obesity 07/02/2020 01/23/2024 Depression 07/06/2003 12/10/2020
--- OUTSIDE RECORDS SUMMARY | 2024-04-18 20:39 | XMS_ITS | Encounter Summary ---
Author Organization [facility] Address [address] [place] [address]. [place] [address] Care Team Providers Care Lock Setter Name Role Phone David Boyd MD Unavailable Marly Marcano MD Unavailable [phone] Reji Coelho MD Unavailable Anil Zavala MD Unavailable [phone] Anthony Kraus MD Unavailable [phone] Anthony Kraus MD Unavailable [phone] Sandra Luis MD Unavailable Hortensia Aguilar APRN [facility] Primary Care Pro vider Encounter Details Date Type Department Care Team (Latest Contact Info) Description 04/09/2024 Travel Social History Tobacco Use Types Packs/Day [...] week 11/20/2022 How often do you attend rastafari or congregation serv ices? Never 11/20/2022 Do you belong to any clubs o r organizations such as rastafari groups, unions, fraternal or athletic groups, or school groups? No 11/20/2022 Attends Club or Organization Meetings Not on yeim e 11/20/2022 Are you , , di [...] Answer Date Recorded PHQ-2 Score 0 05/11/2023 [facility] of Occupat ional [facility] - Occupational Stress Questionnaire Answer Date [...] place to sleep or slept in a nursing home (including now)? No 11/20/2022 Adolescent Education [...] Sex Assigned at Female 05/01/2020 8:36 AM NON LICENSED OPERATOR Legal Sex Female 3:25 AM NON LICENSED OPERATOR Gender Identity Female 05/01/2020 8:36 AM NON LICENSED OPERATOR Sexual Orientation Not on file documented as of this encounter Plan of Treatment Upcoming Encounters Date Type Department Care Team (Late st Contact Info) Description 04/30/2024 11:00 AM NON LICENSED OPERATOR Office Visit [facility] [id number] [place] [phone] Hortensia Aguilar APRN GEOLOGICAL ENGINEER [address] [place] [address] documented as of this encounter Visit Diagnoses Not on filedocumented in this encounter Additional Health Concerns Infection Onset Date Last Indicated Resolved Time 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 12/20/2023 Assessment Noted Time PHQ-9 Depression Total Score: 0 12/12/19 21 7:02 AM CDT documented as of this encounter Care Teams Lock Setter Relationship Specialty Start Date End Date Hortensia Aguilar APRN GEOLOGICAL ENGINEER [address] [place] [address] PCP - General Family Medicine 03/04/24 David Boyd MD [address] [place], [place] [address] Urology 03/05/20 [place] [address] [place], [place] [id number] Assigned PCP 12/03/21 Reji Coelho MD [address] [place], [place] [address] Dermatology 11/27/22 Anil Zavala MD [address] [place], [place] [address] Hospitalist Internal Medicine 12/01/22 Anthony Kraus MD [address] [place], [place] [address] Cardiovascular & Thoracic Surgery 12/01/22 Anthony Kraus MD [address] [place], [place] [address] Assigned Heart and Vascular Provider 12/30/22 Sandra Luis MD [address] [place] [address] Assigned Surgical Provider 02/23/24 documented as of this encounter
--- OUTSIDE RECORDS SUMMARY | 2024-04-18 20:39 | XMS_ITS | Encounter Summary ---
Author Organization [place] Address [facility] [place] [address] Care Team Providers Care Car Jockey Name Role Phone David Boyd MD Unavailable [phone] Coming Marly Villegas MD Primary Care Provid er Coming Marly Villegas MD Unavailable + [phone] Reji Coelho MD Unavailable Anil Zavala MD Unavailable [phone] Anthony Kraus MD Unavailable [phone] Anthony Kraus MD Unavailable [phone] Pari Aggarwal RN Unavailable Unavailable Reji Coelho MD Unavailable Clement Carias MD Unavailable [phone] Chyna Taylor PA-C Unavailable [phone] Sandra Luis MD Unavailable [phone] Hortensia Aguilar APRN [facility] Primary Care Pro vider Reason for Referral * Consultation (Urgent) - Closed Specialty Diagnoses / Procedures Referred By Anil ernandez Referred To Contact Medical Oncology Diagnoses Pulmonary nodule Anil Zavala MD [address] [place] [address] Phone: tel: fax: Referral ID Status Reason Start Date Expiration Date Visits Re quested Visits Authorized [id number] Closed 11/29/2022 11/29/2023 1 1 Scheduling Instructions Lung Nodule Clinic Scheduling, Please call Patient within 7 days and schedule appt with Lung Nodule Clinic Provider within 2 to 4 weeks. (Per protocol for Lung RADS category 4B/4X) [facility] Lung Nodule Clinic Preference: Any questions, please call: Mirella Bess RN [facility] [employer] [facility] Lung Nodule and Emergency Dept Lab Result RN Question Answer My Clinical Question Is: Lung RADS 4B exam 11/28/22 If you have additional clinical questions which require a provider discussion, please call [phone]. Ask for the Chemo only medicine physician. Reason for Referral: Interventional Pulmonary (Lung nodule) Scheduling Instructions: [facility] will call you to coordinate your care as prescribed by the provider. If you don t hear from a medical billing representative within 2 business days, please call Comments Please be aware that coverage of these services is subject to the terms and limitations of your health insurance plan. Call member services at your health plan with any benefit or coverage questions. [facility] will call you to coordinate your care as prescribed by the provider. If you don t hear from a medical billing representative within 2 business days, please call Reason for Visit * Reason Onset Date Comments CT Results 11/29/2022 Encounter Details Date Type Department Care Team (Late st Contact Info) Description 11/29/[address] [place] [phone] Mirella Bess, RN CT Results Social History Tobacco Use Types Packs/Day Years [...] week 11/20/2022 How often do you attend lutheran or restorationism serv ices? Never 11/20/2022 Do you belong to any clubs o r organizations such as lutheran groups, unions, fraternal or athletic groups, or [...] Answer Date Recorded PHQ-2 Score 0 11/27/2022 [facility] of Occupat ional Health - Occupational Stress [...] place to sleep or slept in a fdc (including now)? No 11/20/2022 Comments No Sex and Gender Information Value Date Recorded Sex Assigned at Female 05/01/2020 8:36 AM [employer] M[employer] Legal Sex Female 3:25 AM [employer] Gender Identity Female 05/01/2020 8:36 AM [employer] Sexual Orientation Not on file COVID-19 Exposure Response Date Recorded In the last 10 days, have yo u been in contact with someone who was confirmed or suspected to have Coronavirus/COVID-19? No / Unsure 11/28/2022 1:56 PM CDT documented as of this encounter Miscellaneous Notes * Telephone Encounter - Mirella Bess RN - 11/29/2022 3:35 PM CDT [facility] Radiology Lung Cancer Screening CT result notification: LDCT/Lung Cancer Screening CT Exam date: 11/28/22 Radiologist Impression AND Recommendations: ACR Assessment Category: Lung-RADS Category 4B. Suspicious. Recommendation: Chest CT with contrast (please use exam code IMG 202) or without contrast (please use exam code IMG 200), PET/CT, and/or tissue sampling depending on the probability of malignancy and comorbidities (PET/CT may be used when there is a >/= 8 mm solid component). Pertinent Findings: A new nodule with central cavitation in the right lower lobe posterolaterally abutting the pleura (series 6 image 219) measures 1.7 x 1.2 cm. A 0.6 cm pulmonary nodule near the right lung apex (series 6 image 37) is also new since the previous exam. Mild mucous plugging in the left lower lobe has a similar appearance to the previous exam. Ordering Provider: Dr. Anil Zavala Aviva Mueller did not receive the remaining radiology results from their PCP. Lung RADS 4B/4X Protocol: Results RN to notify Patient of results/recommendations, place referral to [facility] Lung Nodule clinic within 2 to [address]. [address] referral to [facility] Lung nodule program [9023 - Adult Oncology/Hematology employee relations assistant referral with reason for referral Interventional pulmonology (Lung Nodule)] and Patient will be scheduled to see the Lung Nodule Specialist within 2 to 4 weeks (Yes/No/NA): Yes Relay information to Patient: [facility] Scheduling team, , will be calling Patient within 1 week to schedule appt - appt only M-F. (Yes/No/NA): NA left message Results RN routed telephone encounter to [facility] Lung Cancer Screening CUSTOMER CARE REPRESENTATIVE team (Yes/No/NA): Yes If Patient has questions or concerns, they are welcome to call the Lung Nodule clinic at [phone], press option 2 to speak with the nurse (Yes/No/NA): RN communicated the lung nodule finding to the patient (Yes/No): Yes The patient had the following questions: NA Correct letter sent as per [facility] Lung nodule protocol (Yes/No): Yes Did Patient have any CT's of chest previous? (Yes/No/NA) NA If no comparisons used, inquire if patient has had any chest CT's in the past and if so, request priors. If scheduling LDCT only, RN will contact Image Scheduling Team Hours available (all sites below): Sun-Fri 7A to 7P; Sat 7A to 3:30P. No schedulers available on Sunday. [facility] ([facility]): [phone] North region ([facility] [place]): [phone] South region ([facility]): [phone] East region ([facility]): [phone] Lung Nodule Clinics Pulomonary (Lung Care) Clinic at the [facility] Floor 2, Check-In D, [address], [place], [place] Hours: Mon - Sun 7:00 AM to 5:00 PM [facility] Floor 2, [address] [place], [place] [phone] Hours: Sun - Sun 7:00 AM - 7:00 PM; Sat 8:00 AM to 12:00 PM (noon) [facility] at [facility] [address] , [place], [place], [place] [phone] Hours: Sun 8:00 AM - 4:30 PM [facility] [address] [facility] [address], [place] [address] Hours: 7:00 AM- 6:30 PM; Sunday 7:00 AM- 5:30 PM [facility] [place] [address] [place] [address] ?? Hours: Sun 7:00 AM-7:00 PM; Sunday 12:00 PM (noon) - 4 PM Mirella Bess RN [facility] Lung Nodule and Emergency Dept Lab Result RN documented in this encounter Plan of Treatment Upcoming Encounters Date Type Department Care Team (Late st Contact Info) Description 04/30/2024 11:00 AM [employer] Office Visit [facility] [address] [place] [phone] Hortensia Aguilar APRN [facility] [id number] [place] [address] Scheduled Referrals Name Type Priority Associated Diagnoses Orde r Schedule Adult Oncology/Hematology Football Coach Referral Referral Routine: Next available opening Pulmonary nodule Expected: 12/30/2022 (Approximate), Expires: 11/30/2023 documented as of this encounter Visit Diagnoses Diagnosis Pulmonary nodule Solitary pulmonary nodule documented in this encounter Additional Health Concerns Infection Onset Date Last Indicated Resolved Time 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 12/20/2023 Rule Out COVID-19 08/21/2023 08/21/2023 08/21/2023 7:28 PM CDT Rule Out COVID-19 09/05/2023 09/05/2023 09/05/2023 1:51 PM CDT Assessment Noted Time PHQ-9 Depression Total Score: 0 12/12/19 7:02 AM CDT documented as of this encounter Care Teams Car Jockey Relationship Specialty Start [place] [address] [place] [address] PCP - General Family Medicine 06/21/21 03/03/24 Hortensia Aguilar APRN SOLUTIONS ARCHITECT [address] [place] [address] PCP - General Family Medicine 03/04/24 David Boyd MD [address] [address] Urology 03/05/20 [place] [address] [place] [address] Assigned PCP 12/03/21 Reji Coelho MD [address] [place] [address] Dermatology 11/27/22 Anil Zavala MD [address] [place] [address] Hospitalist Internal Medicine 12/01/22 Anthony Kraus MD [address] [place] [address] Cardiovascular & Thoracic Surgery 12/01/22 Anthony Kraus MD [address] [place] [address] Assigned Heart and Vascular Provider 12/30/22 Pari Aggarwal, RN Specialty Sheet Cutting Operator 01/19/23 06/15/23 Reji Coelho MD [address] [place] [address] Assigned Surgical Provider 02/17/23 05/03/23 Clement Carias MD [address] [place] [address] Assigned Surgical Provider 05/04/23 12/23/23 Chyna Taylor PA-C [address] [place] [address] Assigned Surgical Provider 12/24/23 02/22/24 Sandra Lusi MD [address] [facility] [address] [address] Assigned Surgical Provider 02/23/24 documented as of this encounter
--- OUTSIDE RECORDS SUMMARY | 2024-04-18 20:39 | XMS_ITS | Encounter Summary ---
Author Organization [place] Address [facility] [place] [address] Care Team Providers Care Aerial Gunner Superintendent Name Role Phone David Boyd MD Unavailable [phone] Marly Marcano MD Unavailable [phone] Reji Coelho MD Unavailable Anil Zavala MD Unavailable [phone] Anthony Kraus MD Unavailable [phone] Anthony Kraus MD Unavailable [phone] Sandra Luis MD Unavailable [phone] Hortensia Aguilar APRN [facility] Primary Care Pro vider Reason for Visit * Reason Onset Date Comments Imm/Inj 03/06/2024 Flu Shot Imm/Inj 03/06/2024 COVID-19 VACCINE Encounter Details Date Type Department Care Team (Late st Contact Info) Description 03/06/2024 10:[address] [facility] Immunization [address] [phone] Need for prophylactic vaccination and inoculation against influenza (Primary Dx); High priority for 2019-nCoV vaccine Social History Tobacco Use Types Packs/Day Years [...] week 11/20/2022 How often do you attend jehovah's witness or judaism serv ices? Never 11/20/2022 Do you belong to any clubs o r organizations such as jehovah's witness groups, unions, fraternal or athletic groups, or [...] Answer Date Recorded PHQ-2 Score 0 05/11/2023 [facility] of Occupat ional Health - Occupational Stress [...] Sex Assigned at Female 05/01/2020 8:36 AM GAS APPLIANCE INSTALLER Legal Sex Female 3:25 AM GAS APPLIANCE INSTALLER Gender Identity Female 05/01/2020 8:36 AM GAS APPLIANCE INSTALLER Sexual Orientation Not on file documented as of this encounter Plan of Treatment Upcoming Encounters Date Type Department Care Team (Late st Contact Info) Description 04/30/2024 11:00 AM GAS APPLIANCE INSTALLER Office Visit [facility] [phone] [place] [phone] Hortensia Aguilar APRN [facility] [address] [place] [address] documented as of this encounter Visit Diagnoses Diagnosis Need for prophylactic vaccination and inoculation against influenza- Primary High priority for 2019-nCoV vaccine documented in this encounter Additional Health Concerns Infection Onset Date Last Indicated Resolved Time 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 12/20/2023 Assessment Noted Time PHQ-9 Depression Total Score: 0 12/12/19 21 7:02 AM CDT documented as of this encounter Care Teams Aerial Gunner Superintendent Relationship Specialty Start Date End Date Aguilar Hortensia Bernadette, ENVELOPE PATTERNMAKER LINE HAUL DRIVER [address] [place] [address] PCP - General Family Medicine 03/04/24 David Boyd MD [address] [place] [address] Urology 03/05/20 [place] [address] [place] [address] Assigned PCP 12/03/21 Reji Coelho MD [address] [place], [place] [address] Dermatology 11/27/22 Anil Zavala MD [address] [place] [address] Hospitalist Internal Medicine 12/01/22 Anthony Kraus MD [address]09 [place] [address] Cardiovascular & Thoracic Surgery 12/01/22 Anthony Kraus MD [address] [place] [address] Assigned Heart and Vascular Provider 12/30/22 Sandra Luis MD [address] [place] [address] Assigned Surgical Provider 02/23/24 documented as of this encounter
--- OUTSIDE RECORDS SUMMARY | 2024-04-18 20:39 | XMS_ITS | Encounter Summary ---
Author Organization [place] Address [facility] [place] [address] Care Team Providers Care Dope Mixer Name Role Phone David Boyd MD Unavailable Coming Marly Villegas MD Primary Care Provid er Coming Marly Villegas MD Unavailable Reji Coelho MD Unavailable Anil Zavala MD Unavailable [phone] Anthony Kraus MD Unavailable [phone] Anthony Kraus MD Unavailable [phone] Pari Aggarwal RN Unavailable Unavailable Reji Coelho MD Unavailable Clement Carias MD Unavailable [phone] Chyna Taylor PA-C Unavailable [phone] Sandra Luis MD Unavailable [phone] Hortensia Aguilar APRN [facility] Primary Care Pro vider Reason for Visit * Reason Onset Date Comments Appointment 01/24/2023 Patient called teddy stevens to make an appointment with Dr Carias. Encounter Details Date Type Department Care Team (Late st Contact Info) Description 01/24/2023 Telephone [facility] [address] [place] [address] Clement Carias MD [address] [place] [address] Appointment (Patient called looking to make an appointment with Dr Carias.) Social History Tobacco Use Types Packs/Day Years [...] week 11/20/2022 How often do you attend jain or baptism serv ices? Never 11/20/2022 Do you belong to any clubs o r organizations such as jain groups, unions, fraternal or athletic groups, or [...] Answer Date Recorded PHQ-2 Score 0 11/27/2022 [facility] of Occupat ional Health - Occupational Stress [...] place to sleep or slept in a jail (including now)? No 11/20/2022 Adolescent Education Answer Date Record ed Getting School Help Needed Not on file 12/23 Comments No Sex and Gender Information Value Date Recorded Sex Assigned at Female 05/01/2020 8:36 AM SECTION CREWS ACTIVITIES CLERK Legal Sex Female 3:25 AM SECTION CREWS ACTIVITIES CLERK Gender Identity Female 05/01/2020 8:36 AM SECTION CREWS ACTIVITIES CLERK Sexual Orientation Not on file COVID-19 Exposure Response Date Recorded In the last 10 days, have yo u been in contact with someone who was confirmed or suspected to have Coronavirus/COVID-19? No / Unsure 12/25/2022 11:22 AM CDT documented as of this encounter Miscellaneous Notes * Telephone Encounter - Hortensia Salazar LPN - 01/24/2023 12:01 PM CDT Called suggest she do the labs ordered by provider today UA UC wet prep . If no UTI we can see if DR Carias wants a CT scan for stones . Pain L low back . If fever sever pain go to ED * Telephone Encounter - Wilfrid Gipson - 01/24/2023 11:25 AM CDT [facility] Call Center Phone Message May a detailed message be left on voicemail: no Reason for Call: Other: Patient called to make an appointment with Dr Carias. Patient has been experiencing a lot of lower back pain and she is not sure if it is a uti symptom for a possible kidney stone. Please call patient to follow up about current symptoms. Action Taken: Other: [facility] Travel Screening: Not Applicable documented in this encounter Plan of Treatment Upcoming Encounters Date Type Department Care Team (Late st Contact Info) Description 04/30/2024 11:00 AM SECTION CREWS ACTIVITIES CLERK Office Visit [facility] [address] [place] [phone] Hortensia Aguilar APRN [facility] [id number] [place] [address] documented as of this encounter Visit Diagnoses Not on filedocumented in this encounter Additional Health Concerns Infection Onset Date Last Indicated Resolved Time 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 12/20/2023 Rule Out COVID-19 08/21/2023 08/21/2023 08/21/2023 7:28 PM CDT Rule Out COVID-19 09/05/2023 09/05/2023 09/05/2023 1:51 PM CDT Assessment Noted Time PHQ-9 Depression Total Score: 0 12/12/19 7:02 AM CDT documented as of this encounter Care Teams Dope Mixer Relationship Specialty Start Date End Date Coming July MD [place] [address] [place] [address] PCP - General Family Medicine 06/21/21 03/03/24 Hortensia Aguilar APRN SOFTWARE ENGINEER [address] [place] [address] PCP - General Family Medicine 03/04/24 David Boyd MD [address] [facility] [address] [place] [address] Urology 03/05/20 [place] [address] [place] [address] Assigned PCP 12/03/21 Reji Coelho MD [address] [place] [address] Dermatology 11/27/22 Anil Zavala MD [address] [place] [address] Hospitalist Internal Medicine 12/01/22 Anthony Kraus MD [address]09 [place] [address] Cardiovascular & Thoracic Surgery 12/01/22 Anthony Kraus MD [address] [place] [address] Assigned Heart and Vascular Provider 12/30/22 Pari Aggarwal, RN Specialty Crystal Cutter 01/19/23 06/15/23 Reji Coelho MD [address] [place] [address] Assigned Surgical Provider 02/17/23 05/03/23 Clement Carias MD [address] [place] [address] Assigned Surgical Provider 05/04/23 12/23/23 Chyna Taylor PA-C [address] [place] [address] Assigned Surgical Provider 12/24/23 02/22/24 Sandra Luis MD [address] Shayla Rios [address] [address] Assigned Surgical Provider 02/23/24 documented as of this encounter
--- OUTSIDE RECORDS SUMMARY | 2024-04-18 20:39 | XMS_ITS | Encounter Summary ---
Author Organization [place] Address [address] [place] [address]. [place] [address] Care Team Providers Care Surgical Consultant Name Role Phone David Boyd MD Unavailable Marly Marcano MD Unavailable [phone] Reji Coelho MD Unavailable Anil Zavala MD Unavailable [phone] Anthony Kraus MD Unavailable [phone] Anthony Kraus MD Unavailable [phone] Sandra Luis MD Unavailable Hortensia Aguilar APRN [facility] Primary Care Pro vider Encounter Details Date Type Department Care Team (Latest Contact Info) Description 03/06/2024 Travel Social History Tobacco Use Types Packs/Day [...] week 11/20/2022 How often do you attend mandaeism or mandaeism serv ices? Never 11/20/2022 Do you belong to any clubs o r organizations such as mandaeism groups, unions, fraternal or athletic groups, or [...] Answer Date Recorded PHQ-2 Score 0 05/11/2023 [facility] of Occupat ional [facility] - Occupational Stress Questionnaire Answer Date [...] No 11/20/2022 Housing Stability Vital Sign Answer Sreg e Recorded In the last 12 months, [...] Sex Assigned at Female 05/01/2020 8:36 AM GREEN PRIZE PACKER Legal Sex Female 3:25 AM GREEN PRIZE PACKER Gender Identity Female 05/01/2020 8:36 AM GREEN PRIZE PACKER Sexual Orientation Not on file documented as of this encounter Plan of Treatment Upcoming Encounters Date Type Department Care Team (Late st Contact Info) Description 04/30/2024 11:00 AM GREEN PRIZE PACKER Office Visit [facility] [address] [place] [phone] Hortensia Aguilar APRN TERMITE TREATER [address] [place] [address] documented as of this encounter Visit Diagnoses Not on filedocumented in this encounter Additional Health Concerns Infection Onset Date Last Indicated Resolved Time 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 12/20/2023 Assessment Noted Time PHQ-9 Depression Total Score: 0 12/12/19 21 7:02 AM CDT documented as of this encounter Care Teams Surgical Consultant Relationship Specialty Start Date End Date Hortensia Aguilar APRN TERMITE TREATER [address] [place] [address] PCP - General Family Medicine 03/04/24 David Boyd MD [address] [place], [place] [address] Urology 03/05/20 [place] [address] [place], [place] [address] Assigned PCP 12/03/21 Reji Coelho MD [address] [place], [place] [address] Dermatology 11/27/22 Anil Zavala MD [address] [place], [place] [address] Hospitalist Internal Medicine 12/01/22 Anthony Kraus MD [address] [place], [place] [address] Cardiovascular & Thoracic Surgery 12/01/22 Anthony Kraus MD [address] [place], [place] [address] Assigned Heart and Vascular Provider 12/30/22 Sandra Luis MD [address] [place] [address] Assigned Surgical Provider 02/23/24 documented as of this encounter
--- OUTSIDE RECORDS SUMMARY | 2024-04-18 20:39 | XMS_ITS | Encounter Summary ---
Author Organization [place] Address [facility] [place] [address] Care Team Providers Care Observer Helper Name Role Phone David Boyd MD Unavailable Marly Marcano MD Unavailable [phone] Reji Coelho MD Unavailable Anil Zavala MD Unavailable [phone] Anthony Kraus MD Unavailable [phone] Anthony Kraus MD Unavailable [phone] Sandra Luis MD Unavailable Hortensia Aguilar APRN [facility] Primary Care Pro vider Reason for Visit * Reason Onset Date Comments Schedule Surgery 03/07/2024 Patient cancele d surgery d/t condition improved Encounter Details Date Type Department Care Team (Late st Contact Info) Description 03/07/2024 Telephone [facility] [address] 4[address] [place] [address] Sandra Luis MD [address] [facility] [address] [place], [place] [id number] Schedule Surgery (Patient canceled surgery d/t condition improved) Social History Tobacco Use Types Packs/Day Years [...] How often do you attend shinto or mu-ism serv ices? Never 11/20/2022 Do you belong [...] Answer Date Recorded PHQ-2 Score 0 05/11/2023 [facility] - Occupational Stress Questionnaire Answer Date [...] place to sleep or slept in a halfway (including now)? No 11/20/2022 Adolescent Education Answer [...] Sex Assigned at Female 05/01/2020 8:36 AM COUNTER PROFESSIONAL Legal Sex Female 3:25 AM COUNTER PROFESSIONAL Gender Identity Female 05/01/2020 8:36 AM COUNTER PROFESSIONAL Sexual Orientation Not on file documented as of this encounter Miscellaneous Notes * Telephone Encounter - Prabha Wheat - 03/07/2024 11:56 AM CSTSummary: Surgery DOS 03/28/24 canceled per patient Inbound call received from patient. Spoke with her. Outpatient surgery with Dr. Luis scheduled at the [facility] OR on DOS 03/28/24 canceled per patient due to condition improved. Patient reports that the topical cream that was prescribed to her has improved her symptoms, so shefeels that surgery is not needed. Surgery DOS 03/28/[address] Sandra Luis's team updated. Prabha Wheat Nadia-op Coordinator [place] Direct TER PROFESSIONAL documented in this encounter Plan of Treatment Upcoming Encounters Date Type Department Care Team (Late st Contact Info) Description 04/30/2024 11:00 AM COUNTER PROFESSIONAL Office Visit [facility] [address] [place] [address] Hortensia Aguilar APRN TERMINAL COMPUTER OPERATOR [address] [place] [address] documented as of this encounter Visit Diagnoses Not on filedocumented in this encounter Additional Health Concerns Infection Onset Date Last Indicated Resolved Time 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 12/20/2023 Assessment Noted Time PHQ-9 Depression Total Score: 0 12/12/19 21 7:02 AM CDT documented as of this encounter Care Teams Observer Helper Relationship Specialty Start Date End Date Hortensia Aguilar APRN TERMINAL COMPUTER OPERATOR [address] [place] [address] PCP - General Family Medicine 03/04/24 David Boyd MD [address] [facility] [address] [place] [address] Urology 03/05/20 [place] [address] [place] [address] Assigned PCP 12/03/21 Reji Coelho MD [address] [place] [address] Dermatology 11/27/22 Anil Zavala MD [address], [place] [address] Hospitalist Internal Medicine 12/01/22 Anthony Kraus MD [address] [place], [place] [address] Cardiovascular & Thoracic Surgery 12/01/22 Anthony Kraus MD [address] [place], [place] [id number] Assigned Heart and Vascular Provider 12/30/22 Sandra Luis MD [address] [facility] [address] [facility] [address] [place] [address] Assigned Surgical Provider 02/23/24 documented as of this encounter
--- OUTSIDE RECORDS SUMMARY | 2024-04-18 20:39 | XMS_ITS | Encounter Summary ---
Author Organization [place] Address [address] [facility] [place] [address] Care Team Providers Care Hydrogeologist Name Role Phone David Boyd MD Unavailable [phone] Marly Villegas MD Unavailable [phone] Reji Coelho MD Unavailable Anil Zavala MD Unavailable [phone] Anthony Kraus MD Unavailable [phone] Anthony Kraus MD Unavailable [phone] Sandra Luis MD Unavailable [phone] Hortensia Aguilar APRN [facility] Primary Care Pro vider Reason for Referral * Consultation (Routine: Next available opening) - Pending Review Specialty Diagnoses / Procedures Referred By Anil ernandez Referred To Contact Infectious Diseases Diagnoses Recurrent UTI Fariba Kebede PA-C [address] [facility] [address] [place] [address] Phone: tel: fax: Referral ID Status Reason Start Date Expiration Date V isits Requested Visits Authorized [id number] Pending Review 04/09/2024 04/09/2025 1 1 Question Answer Is the patient a transplant or pre-transplant patient? No Reason for Referral: Recurrent UTI Patient Scheduling Instructions: [facility] will call you to coordinate your care as prescribed by the provider. If you don t hear from a business process representative within 2 business days, please call . Comments Please be aware that coverage of these services is subject to the terms and limitations of your health insurance plan. Call member services at your health plan with any benefit or coverage questions. [facility] will call you to coordinate your care as prescribed by the provider. If you don t hear from a business process representative within 2 business days, please call . TER DRUM Reason for Visit * Reason Comments Recurrent UTI Encounter Details Date Type Department Care Team (Late st Contact Info) Description 04/09/2024 3:00 PM PAINTER DRUM Office Visit [facility] Urology Clinic [address] [place] [address] Fariba Kebede PA-C [address] [address] Recurrent UTI (Primary Dx); Feeling of incomplete bladder emptying; History of kidney stones Social History Tobacco Use Types Packs/Day Years [...] How often do you attend mandaeism or gnosticist serv ices? Never 11/20/2022 Do you belong [...] Answer Date Recorded PHQ-2 Score 0 05/11/2023 [facility] - Occupational [...] place to sleep or slept in a assisted (including now)? No 11/20/2022 Adolescent Education Answer [...] Sex Assigned at Female 05/01/2020 8:36 AM PAINTER DRUM Legal Sex Female 3:25 AM PAINTER DRUM Gender Identity Female 05/01/2020 8:36 AM PAINTER DRUM Sexual Orientation Not on file documented as of this encounter Last Filed Vital Signs Vital Sign Reading Time Taken Comments Blood Pressure 112/58 04/09/2024 3:05 PM PAINTER DRUM Pulse - - Temperature - - Respiratory Rate - - Oxygen Saturation - - Inhaled Oxygen Concentration - - Weight 68.9 kg (152 lb) 04/09/2024 3:05 PM PAINTER DRUM Height - - Body Mass Index 27.14 03/06/2024 11:02 AM PAINTER DRUM documented in this encounter Patient Instructions * Patient Instructions* Fariba Kebede PA-C - 04/09/2024 3:00 PM PAINTER DRUM Will plan starting d-mannose 500 mg twice daily. Can increase up to 1000 mg twice daily, if tolerated. This is for UTI prevention. You have already had anatomical evaluation for recurrent UTIs and findings have been addressed. I would prefer that you stop trimethoprim, as I recommend in 2020. You would like to continue. Would recommend discussing with infectious diseases. Would only recommend treating UTIs if having symptoms. If no real symptoms or no improvement with antibiotics, would not recommend continuing to treat. At that point, likely colonized. Plan on referral to infectious diseases given ESBL with worsening resistance to antibiotics. Was sensitive to fosfomycin in 2020, but not recently tested for this. ID referral number: We could teach you gentamicin irrigations if ID wanted, but would hold off on this for the time being. Could try a different overactive bladder medication to see if this would help frequency. Another option would be posterior tibial nerve stimulation. Contact us in the interim with questions, concerns, or changes in symptomatology. [phone] TER DRUM TER DRUM TER DRUM TER DRUM documented in this encounter Progress Notes * Fariba Kebede PA-C - 04/09/2024 3:00 PM CST CC: Recurrent UTIs HPI: Ms. Mueller is a 73 year old year old female seen in consultation today for recurrent UTIs. She does not have diabetes, but she has some immune compromise due to chronic steroids. Patient was recommended to be seen for follow-up due to to recurrent urinary tract infections. She had previously been seen by myself regarding these in 2020. Recent urine cultures have shown ESBL E. coli. In discussion with the patient, it sound like she does not have many symptoms with these infections. When she gets a urinary tract infection, she feels like she does not empty as well and has increased frequency. She has previously been given Keflex, cefdinir, and amoxicillin, which have not helpedher symptomatology (which given ESBL shouldn't help). She also endorses that Macrobid does not help and does not want to take it. At baseline, patient has issues with urgency, frequency, and urge incontinence. She had previously been trialed on oxybutynin, which gave her GI upset. She had also been treated with Vesicare which did not seem to help and gave her issues. She also was trialed on Detrol without success in 2006. Her recent cultures in 2020 showed worsening resistance patterns and ESBL E. coli. She was given fosfomycin. We did check for fosfomycin sensitivities in 2020, which of these were sensitive for. Patient had avoided topical estrogen therapy due to history of ovarian cancer. She was on suppressive trimethoprim when I saw her. I did recommend that she stop this, as I do not feel like it was working. Patient continues to be on this medication and does not want to stop it. Fluid intake includes coffee, diet Pepsi, and water. Patient has undergone intervention for nephrolithiasis. She has also undergone anatomical evaluation with CT and cystoscopy, and these findings have been treated. It appears at one point that she wasplaced on low-dose Keflex for several months in January 2021. We had placed her on Hiprex 1 g twice daily, which appears that she was on this for part of 2020 in 2021. Also appears that she was on this for several months at the end of 2022. Recommendation was made for her to see infectious disease. Patient has not seen them. She previously got C. difficile with ertapenem. She has listed allergies to penicillin and Bactrim. Most recent creatinine 1.11 EGFR 53. Primary care recommended she discontinue her cranberry supplements and her probiotics. The following portions of the patient's history were reviewed and updated as appropriate: allergies, current medications, past medical history, past social history, past surgical history, and problemlist. Review of Systems Constitutional: Negative. Respiratory: Positive for cough. Genitourinary: Positive for frequency and urgency. Negative for dysuria and hematuria. Patient Active Problem List Diagnosis Recurrent UTI Psoriasis Nephrolithiasis Persistent disorder of initiating or maintaining sleep Tobacco abuse Other specified hypothyroidism History of pulmonary embolism Stage 3a chronic kidney disease (H) Chronic bronchitis (H) Esophageal reflux Urge incontinence Status post total left knee replacement Other vitamin B12 deficiency anemia Asymptomatic varicose veins Femoral artery pseudo-aneurysm, right Abnormal CT scan, chest History of gastric bypass Age-related osteoporosis without current pathological fracture COPD (chronic obstructive pulmonary disease) (H) Personal history of ovarian cancer Pulmonary nodule Purpura Anal fissure Past Medical History: Diagnosis Date Age-related osteoporosis without current pathological fracture 04/2020 L-.3, LH-2.5, RH-2.3 Arthritis COPD (chronic obstructive pulmonary disease) (H) Depression 07/06/2003 History of thrombophlebitis Pulminary embolism Malignant neoplasm of ovary, unspecified laterality (H) 11/08/2022 Morbid obesity (H) 07/02/2020 Ovarian cancer (H) Psoriasis Recurrent UTI Thyroid disease hypothyroidism Uncomplicated asthma Urge incontinence Vitamin B 12 deficiency Past Surgical History: Procedure Laterality Date ABDOMEN SURGERY gastric bypass BLADDER SURGERY Bladder stretched COLONOSCOPY 2018 CYSTOSCOPY EYE SURGERY 2019 cataract removal CERTIFIED MASTER LOCKSMITH SURGERY total hysterectomy IR RENAL STONE REMOVAL LEFT 11/18/2019 ORTHOPEDIC SURGERY L knee replacement PERCUTANEOUS NEPHROLITHOTOMY Left 11/18/2019 Procedure: CYSTOSCOPY, LEFT PERCUTANEOUS NEPHROLITHOTOMY, STONE BASKETING ; Surgeon: David Boyd MD; Location: OR Social History: Current every day smoker. Not interested in quiting. GENERAL PHYSICAL EXAM: Vitals: BP 112/58 Wt 68.9 kg (152 lb) LMP (LMP Unknown) BMI 27.14 kg/m?? Physical Exam Constitutional: Appearance: Normal appearance. HENT: Head: Normocephalic. Nose: Nose normal. Eyes: General: No scleral icterus. Pulmonary: Effort: Pulmonary effort is normal. Comments: Cough. Abdominal: General: There is no distension. Musculoskeletal: General: Normal range of motion. Cervical back: Normal range of motion. Neurological: General: No focal deficit present. Mental Status: She is alert and oriented to person, place, and time. Psychiatric: Mood and Affect: Mood normal. Behavior: Behavior normal. Urine - Recent Labs Lab Test 04/09/24 1518 12/26/23 1424 12/20/23 1340 COLOR Yellow < > Yellow APPEARANCE Clear < > Clear URINEGLC Negative < > Negative URINEBILI Negative < > Negative URINEKETONE Negative < > Negative SG 1.015 < > 1.010 UBLD Negative < > Small* URINEPH 5.5 < > 5.5 PROTEIN Negative < > Negative UROBILINOGEN 0.2 < > 0.2 NITRITE Negative < > Negative LEUKEST Small* < > Small* RBCU -- -- 2-5* WBCU -- -- 5-10* < > = values in this interval not displayed. Creatinine 1.11 eGFR 53 TESTING PVR: 28 mL IMAGING No results found. ASSESSMENT: 1. Recurrent UTI 2. Feeling of incomplete bladder emptying 3. History of kidney stones I had the pleasure today of meeting with Ms. Mueller to discuss her recurrent urinary tract infections. Patient has had multiple cultures in fall 2023 which showed ESBL E. coli, greater than 100,000 CFU per mL. Patient notes that she did not have much for urinary tract symptoms. She always endorses some degree of urinary urgency, frequency, and feelings of incomplete bladder emptying. She has been trialed on several overactive bladder medications and has not found efficacy with them or endorse side effects. She is treated with antibiotics for infections, but denies any significant improvement in symptomatology. She is on suppressive trimethoprim, which when I saw her in 2020, I recommended that she discontinue this. I had also recommended that she see infectious disease, given the ESBL E. coli urinarytract infections. If there are limited oral options and if she truly has a symptomatic infection, these are getting harder to treat. I did discuss with her that I suspect that she is actually colonized at this point is not having true symptomatic infections. She had previous anatomical evaluation and those findings including nephrolithiasis have been treated and resolved. Will plan on the following: -Will plan [...] option would be posterior tibial nerve stimulation. Contact us in the interim with questions, concerns, or changes in symptomatology. I spent a total of 35 minutes obtaining the HPI, examining the patient, documentation, counseling the patient on diagnosis and treatment on the day of the visit. Fariba Kebede PA-C [facility] [phone] TER DRUM documented in this encounter Nursing Notes * Monie Peralta - 04/09/2024 3:00 PM CST Chief Complaint Patient presents with Recurrent UTI Pt following up on recurrent UTI, stated she had an ecoli infection this fall. States she is not sure if she has UTI symptoms today, as she is used to just always feeling the way she feels, denies dysuria or gross hematuria. Has the frequency and feeling of incomplete bladder emptying PVR: 28 mL by bladder scan Monie Peralta, Computer Drafter TER DRUM TER DRUM documented in this encounter Plan of Treatment Upcoming Encounters Date Type Department Care Team (Late st Contact Info) Description 04/30/2024 11:00 AM PAINTER DRUM Office Visit [address] [phone] Hortensia Aguilar APRN [facility] [id number] [place] [address] Scheduled Referrals Name Type Priority Associated Diagnoses Orde r Schedule Adult Infectious Disease Ux Information Architect Referral Referral Routine: Next available opening Recurrent UTI Expected: 04/09/2024 (Approximate), Expires: 04/09/2025 documented as of this encounter Procedures Procedure Name Priority Date/Time Associated Diagnosis Comments URINALYSIS MACROSCOPIC Routine 04/09/2024 3:18 PM PAINTER DRUM Recurrent UTI LA MEASURE POST-VOID RESIDUAL URINE/BLADDER CAPACITY, US NON-IMAGING Routine 04/09/2024 Feeling of incomplete bladder emptying documented in this encounter Results * (ABNORMAL) UA without Microscopic [[id number]] (04/09/2024 3:18 PM PAINTER DRUM) Color Urine Yellow Colorless, Straw, Light Yellow, Yellow 04/09/2024 3:20 PM PAINTER DRUM [facility] Appearance Urine Clear Clear 04/09/19 25 3:20 PM PAINTER DRUM [facility] Glucose Urine Negative Negative mg/dL 04/09/2024 3:20 PM PAINTER DRUM [facility] Bilirubin Urine Negative Negative 5 3:20 PM PAINTER DRUM [facility] Ketones Urine Negative Negative mg/dL 04/09/2024 3:20 PM PAINTER DRUM [facility] Specific [place] Urine 1.015 1.003 - 1.035 04/09/2024 3:20 PM PAINTER DRUM [facility] Blood Urine Negative Negative 04/09/2024 3:20 PM PAINTER DRUM [facility] pH Urine 5.5 5.0 - 7.0 04/09/2024 3:20 PM PAINTER DRUM [facility] Protein Albumin Urine Negative Negative mg/dL 04/09/2024 3:20 PM PAINTER DRUM [facility] Urobilinogen Urine 0.2 0.2, 1.0 E.U./dL 04/09/2024 3:20 PM PAINTER DRUM [facility] Nitrite Urine Negative Negative 04/09/2024 3:20 PM PAINTER DRUM [facility] Leukocyte Esterase Urine Small(A) Negative 04/09/2024 3:20 PM PAINTER DRUM [facility] Urine MID-STREAM URINE SPECIMEN / Unknown Non-blood Collection / Unknown 04/09/2024 3:18 PM PAINTER DRUM 04/09/2024 3:18 PM PAINTER DRUM Fariba Kebede PA-C LAB - URINE ORDERABLE S Final Result [facility] [address] [facility] [phone] * MEASURE POST-VOID RESIDUAL URINE/BLADDER CAPACITY, US NON-IMAGING ([id number]) (04/09/2024) Residual Volume (RV) (External) 28 Fariba Kebede PA-C PROCEDURES Final Result documented in this encounter Visit Diagnoses Diagnosis Recurrent UTI- Primary Urinary tract infection, site not specified Feeling of incomplete bladder emptying Incomplete bladder emptying History of kidney stones Personal history of urinary calculi documented in this encounter Additional Health Concerns Infection Onset Date Last Indicated Resolved Time 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 12/20/2023 Assessment Noted Time PHQ-9 Depression Total Score: 0 12/12/19 21 7:02 AM CDT documented as of this encounter Care Teams Hydrogeologist Relationship Specialty Start Date End Date Hortensia Aguilar APRN LEGAL ARBITRATOR [address] [employer] [place] [address] PCP - General Family Medicine 03/04/24 David Boyd MD [address] [place] [address] Urology 03/05/20 [place] [address] [address] [place] [address] Assigned PCP 12/03/21 Reji Coelho MD [address] [place] [address] Dermatology 11/27/22 Anil Zavala MD [address] [place] [address] Hospitalist Internal Medicine 12/01/22 Anthony Kraus MD [address] [place] [address] Cardiovascular & Thoracic Surgery 12/01/22 Anthony Kraus MD 9 [place] [address] Assigned Heart and Vascular Provider 12/30/22 Sandra Luis MD [address] [place] [address] Assigned Surgical Provider 02/23/24 documented as of this encounter
--- OUTSIDE RECORDS SUMMARY | 2024-04-18 20:39 | XMS_ITS | Encounter Summary ---
Author Organization [place] Address [address] [place] [address]. [place] [address] Care Team Providers Care Supervisor [place] Name Role Phone David Boyd MD Unavailable [phone] David Boyd MD Unavailable + Halie Powers APRN SYSTEM ADMIN Primary Care Provider + Halie Powers APRN SYSTEM ADMIN Unavailable +- [phone] Clement Carias MD Unavailable [phone] Coming Marly Villegas MD Primary Care Provid er Coming Marly Villegas MD Unavailable + [phone] Reji Coelho MD Unavailable Anil Zavala MD Unavailable + [phone] Anthony Kraus MD Unavailable [phone] Anthony Kraus MD Unavailable [phone] Pari Aggarwal RN Unavailable Unavailable Reji Coelho MD Unavailable Clement Carias MD Unavailable +[phone] Chyna Taylor PA-C Unavailable [phone] Sandra Luis MD Unavailable [phone] Hortensia Aguilar APRN SYSTEM ADMIN Primary Care Pro vider Reason for Visit * Reason Onset Date Comments other 07/01/2020 water pill / iram t Call Back 07/06/2020 PT returning loren l from [facility] and is requesting to schedule an APPT in the next a couple weeks but no avail. Please reach out to the PT. Encounter Details Date Type Department Care Team (Late st Contact Info) Description 07/01/2020 Telephone [facility] [place] [address] [place] [address] David Boyd MD [address] [place] [address] other (water pill / appt); Call Back (PT returning call from [facility] and is requesting to schedule an APPT in the next a couple weeks but no avail. Please reach out to the PT. ) Social History Tobacco Use Types Packs/Day Years Used Date Smoking Tobacco: Every Day Cigarettes Smokeless Tobacco: Never Alcohol Use Standard Drinks/Week Comments No 0 (1 standard drink = 0.6 oz pur e alcohol) PHQ-2 Answer Date Recorded PHQ-2 Score 0 06/07/2020 Comments No Sex and Gender Information Value Date Recorded Sex Assigned at Female 05/01/2020 8:36 AM PARALEGAL INSTRUCTOR Legal Sex Female 3:25 AM PARALEGAL INSTRUCTOR Gender Identity Female 05/01/2020 8:36 AM PARALEGAL INSTRUCTOR Sexual Orientation Not on file COVID-19 Exposure Response Date Recorded In the last month, have you been in contact with someone who was confirmed or suspected to have Coronavirus / COVID-19? No / Unsure 07/02/2020 10:18 AM CDT documented as of this encounter Miscellaneous Notes * Telephone Encounter - Dorene Jones CMA - 07/06/2020 1:28 PM CDT PT WAS NOTIFIED THAT DR BOYD WILL NOT PRESCRIBE HER WATER PILLS. PT ALSO STATED SOMEONE IS GOING TO CALL HER BACK FOR AN APPT WITH [facility]. I TOLD HER I DID NOT KNOW WHO THAT WAS AND SHE SAID IT WAS SOMEONE SHE SPOKE TO BEFORE. Georgina Jones CMA * Telephone Encounter - Xena Goodrich - 07/06/2020 12:55 PM CDT [facility] Phone Message May a detailed message be left on voicemail: yes Reason for Call: Other: PT returning call from [facility] and is requesting to schedule an APPT in the next a couple weeks but no avail. Please reach out to the PT. Action Taken: Message routed to: Other: Urology Travel Screening: Not Applicable * Telephone Encounter - Dorene Jones CMA - 07/06/2020 11:[address] BOYD HE WILL NOT PRESCRIBE WATER PILLS. I CALLED TO INFORM PT AND SHE IS NOT AT HOME. SHE WILL CALL THE OFFICE WHEN SHE GETS HOME. Georgina Jones CMA * Telephone Encounter - Hortensia Salazar LPN - 07/02/2020 10:51 AM CDT Left message to call back to discuss reason for an Appointment And if needed Can arrange a sooner appointment . The water pill would be ordered from primary .Hortensia Salazar LPN * Telephone Encounter - Camilla Venegas - 07/01/2020 3:26 PM CDT [facility] Phone Message May a detailed message be left on voicemail: yes Reason for Call: Other: pt would like to discuss getting on a water pill, also she finished her medication and needs a follow up with , except he doesnt have any openings until Dec 2020, please call pt about both requests, thank you Action Taken: Message routed to: [facility] uro Travel Screening: Not Applicable documented in this encounter Plan of Treatment Upcoming Encounters Date Type Department Care Team (Late st Contact Info) Description 04/30/2024 11:00 AM PARALEGAL INSTRUCTOR Office Visit [facility] [address] [place] [phone] Hortensia Aguilar APRN SYSTEM ADMIN [address] [place], [place] [id number] documented as of this encounter Visit Diagnoses Not on filedocumented in this encounter Additional Health Concerns Infection Onset Date Last Indicated Resolved Time 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 12/20/2023 Rule Out C-difficile 12/10/2020 12/13/2020 021 5:27 PM CDT C-difficile 12/13/2020 12/13/2020 01/12/2021 11:3 9 PM CDT Rule Out C-difficile 05/09/2021 05/09/2021 022 11:39 PM PARALEGAL INSTRUCTOR Rule Out C-difficile 09/13/2021 09/15/2021 022 3:23 PM CDT C-difficile 09/15/2021 09/15/2021 10/15/2021 11:3 9 PM CDT Rule Out C-difficile 11/25/2021 11/25/2021 022 11:39 PM CDT Rule Out COVID-19 08/21/2023 08/21/2023 08/21/2023 7:28 PM CDT Rule Out COVID-19 09/05/2023 09/05/2023 09/05/2023 1:51 PM CDT Assessment Noted Time PHQ-9 Depression Total Score: 0 06/01/19 21 2:01 PM PARALEGAL INSTRUCTOR documented as of this encounter Care Teams Supervisor [place] Relationship Specialty Start Date End Date Halie Powers APRN SYSTEM ADMIN [address] [address] PCP - General Family Medicine 04/03/20 06/20/21 [place] [address] [facility] [place] [address] PCP - General Family Medicine 06/21/21 03/03/24 Hortensia Aguilar APRN SYSTEM ADMIN [address] [facility] [place] [address] PCP - General Family Medicine 03/04/24 David Boyd MD [address] [place] [address] Assigned Surgical Provider 01/23/20 02/05/21 David Boyd MD [address] [place] [address] Urology 03/05/20 Halie Powers APRN SYSTEM ADMIN [address] [place] [address] Assigned PCP 06/13/20 12/02/21 Clement Carias MD [address] [place] [address] Assigned Surgical Provider 02/06/21 11/10/22 [place] [address] [facility] [place] [address] Assigned PCP 12/03/21 Reji Coelho MD [address] [place] [address] Dermatology 11/27/22 Anil Zavala MD [address] [place] [address] Hospitalist Internal Medicine 12/01/22 Anthony Kraus MD [address] [place] [address] Cardiovascular & Thoracic Surgery 12/01/22 Anthony Kraus MD [address] [place] [address] Assigned Heart and Vascular Provider 12/30/22 Pari Aggarwal, RN Specialty Senior Information Developer 01/19/23 06/15/23 Reji Coelho MD [address] [place] [address] Assigned Surgical Provider 02/17/23 05/03/23 Clement Carias MD [address] [place] [id number] Assigned Surgical Provider 05/04/23 12/23/23 Chyna Taylor PA-C [address] [place] [address] Assigned Surgical Provider 12/24/23 02/22/24 Sandra Luis MD [address] [place] [address] [place] [address] Assigned Surgical Provider 02/23/24 documented as of this encounter
--- OUTSIDE RECORDS SUMMARY | 2024-04-18 20:39 | XMS_ITS | Encounter Summary ---
Author Organization [place] Address [address] [place] [address]. [place] [address] Care Team Providers Care Cruise Consultant Name Role Phone David Boyd MD Unavailable Coming Marly Villegas MD Primary Care Provid er Coming Marly Villegas MD Unavailable [phone] Reji Coelho MD Unavailable Anil Zavala MD Unavailable [phone] Anthony Kraus MD Unavailable [phone] Anthony Kraus MD Unavailable [phone] Chyna Taylor PA-C Unavailable [phone] Sandra Luis MD Unavailable [phone] Hortensia Aguilar APRN [facility] Primary Care Pro vider Reason for Visit * Reason Onset Date Comments Appointment 12/28/2023 Encounter Details Date Type Department Care Team (Late st Contact Info) Description 12/28/2023 Telephone [facility] [address] [place] [address] Clement Carias MD [address] [place] [address] Appointment Social History Tobacco Use Types Packs/Day Years [...] week 11/20/2022 How often do you attend hinduism or nondenominational serv ices? Never 11/20/2022 Do you belong to any clubs o r organizations such as hinduism groups, unions, fraternal or athletic groups, or [...] Answer Date Recorded PHQ-2 Score 0 05/11/2023 [facility] - Occupational Stress Questionnaire Answer Date Recorded [...] Sex Assigned at Female 05/01/2020 8:36 AM MASTER ELECTRICIAN Legal Sex Female 3:25 AM MASTER ELECTRICIAN Gender Identity Female 05/01/2020 8:36 AM MASTER ELECTRICIAN Sexual Orientation Not on file documented as of this encounter Miscellaneous Notes * Telephone Encounter - Arlyn Lopez - 12/28/2023 11:40 AM CDT [facility] Phone Message May a detailed message be left on voicemail: yes Reason for Call: Other: Patient calling about scheduling an appointment for UTI. Patient states that she has been going on since October and is now on her third antibiotic. Patient was offered next available on 06/16/24 but declined to schedule out that far. Patient asked if there is someone else that she could see. Sending TE for review. Please call patient to discuss. Action Taken: Message routed to: Other: Urology Travel Screening: Not Applicable documented in this encounter Plan of Treatment Upcoming Encounters Date Type Department Care Team (Late st Contact Info) Description 04/30/2024 11:00 AM MASTER ELECTRICIAN Office Visit [facility] [address] [place] [address] Hortensia Aguilar APRN LIGHT CLEANER [address] [place] [address] documented as of this encounter Visit Diagnoses Not on filedocumented in this encounter Additional Health Concerns Infection Onset Date Last Indicated Resolved Time 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 12/20/2023 Assessment Noted Time PHQ-9 Depression Total Score: 0 12/12/19 21 7:02 AM CDT documented as of this encounter Care Teams Cruise Consultant Relationship Specialty Start [place] [address] [place] [address] PCP - General Family Medicine 06/21/21 03/03/24 Hortensia Aguilar APRN LIGHT CLEANER [address] [place] [address] PCP - General Family Medicine 03/04/24 David Boyd MD [address] [place] [address] [address] [address] Urology 03/05/20 [place] [address] [place] [address] Assigned PCP 12/03/21 Reji Coelho MD [address] [place] [id number] Dermatology 11/27/22 Anil Zavala MD [address] [place], [place] [address] Hospitalist Internal Medicine 12/01/22 Anthony Kraus MD [address] [place] [address] Cardiovascular & Thoracic Surgery 12/01/22 Anthony Kraus MD [address] [place] [address] Assigned Heart and Vascular Provider 12/30/22 Chyna Taylor PA-C [address] [place] [id number] Assigned Surgical Provider 12/24/23 02/22/24 Sandra Luis MD [address] [facility] [address] [address] Assigned Surgical Provider 02/23/24 documented as of this encounter
--- OUTSIDE RECORDS SUMMARY | 2024-04-18 20:39 | XMS_ITS | Encounter Summary ---
Author Organization [place] Address [address] [place] [address]. [place] [address] Care Team Providers Care Information Security Systems Instructor Name Role Phone Halie Powers APRN STONEMASON HELPER Primary Care Provider + Halie Powers APRN, CNP Unavailable + Jose Alejandro Holguin RN Unavailable Unavailable David Boyd MD Unavailable + David Boyd MD Unavailable + Halie Powers APRN STONEMASON HELPER Primary Care Provider + Kedar Acevedo MD Unavailable + Halie Powers APRN STONEMASON HELPER Unavailable + Clement Carias MD Unavailable + Coming Marly Villegas MD Primary Care Provid er Coming Marly Villegas MD Unavailable [phone] Reji Coelho MD Unavailable Anil Zavala MD Unavailable + [phone] Anthony Kraus MD Unavailable [phone] Anhtony Kraus MD Unavailable [phone] Pari Aggarwal RN Unavailable Unavailable Reji Coelho MD Unavailable Clement Carias MD Unavailable +[phone] Chyna Taylor PA-C Unavailable Sandra Luis MD Unavailable [phone] Hortensia Aguilar APRN STONEMASON HELPER Primary Care Pro vider Reason for Visit * Reason Comments Medication Refill Encounter Details Date Type Department Care Team (Late st Contact Info) Description 12/30/2019 Refill M [address], [address] [place] [address] Halie Powers APRN STONEMASON HELPER [address] [facility] [place] [address] Medication Refill Social History Tobacco Use Types Packs/Day Years Used Date Smoking Tobacco: Former Smokeless Tobacco: Never Alcohol Use Standard Drinks/Week Comments No 0 (1 standard drink = 0.6 oz pur e alcohol) PHQ-2 Answer Date Recorded PHQ-2 Score 0 04/09/2018 Comments No Sex and Gender Information Value Date Recorded Sex Assigned at Female 05/01/2020 8:36 AM GASKET MAKER Legal Sex Female 3:25 AM GASKET MAKER Gender Identity Female 05/01/2020 8:36 AM GASKET MAKER Sexual Orientation Not on file COVID-19 Exposure Response Date Recorded In the last month, have you been in contact with someone who was confirmed or suspected to have Coronavirus / COVID-19? No / Unsure 12/05/2019 9:35 AM CDT documented as of this encounter Miscellaneous Notes * Telephone Encounter - Katie Talley RN - 12/30/2019 6:05 PM CDT Medication refilled per [facility] [place] Katie Talley RN documented in this encounter Plan of Treatment Upcoming Encounters Date Type Department Care Team (Late st Contact Info) Description 04/30/2024 11:00 AM GASKET MAKER Office Visit [address] [address] Hortensia Aguilar APRN STONEMASON HELPER [address] [place] [address] documented as of this encounter Visit Diagnoses Diagnosis Hypothyroidism, unspecified type documented in this encounter Additional Health Concerns Infection Onset Date Last Indicated Resolved Time 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 12/20/2023 Rule Out C-difficile 12/10/2020 12/13/2020 021 5:27 PM CDT C-difficile 12/13/2020 12/13/2020 01/12/2021 11:3 9 PM CDT Rule Out C-difficile 05/09/2021 05/09/2021 022 11:39 PM GASKET MAKER Rule Out C-difficile 09/13/2021 09/15/2021 022 3:23 PM CDT C-difficile 09/15/2021 09/15/2021 10/15/2021 11:3 9 PM CDT Rule Out C-difficile 11/25/2021 11/25/2021 022 11:39 PM CDT Rule Out COVID-19 08/21/2023 08/21/2023 08/21/2023 7:28 PM CDT Rule Out COVID-19 09/05/2023 09/05/2023 09/05/2023 1:51 PM CDT documented as of this encounter Care Teams Information Security Systems Instructor Relationship Specialty Start Date End Date Halie Powers APRN STONEMASON HELPER PCP - General Nurse Practitioner - Family 07/24/17 04/02/20 Halie Powers APRN STONEMASON HELPER [address] [address] PCP - General Family Medicine 04/03/20 06/20/21 [place] [address] [place] [address] PCP - General Family Medicine 06/21/21 03/03/24 Hortensia Aguilar APRN STONEMASON HELPER [address] [place] [address] PCP - General Family Medicine 03/04/24 Halie Powers APRN STONEMASON HELPER [address] [place] [address] Assigned PCP 08/17/19 05/08/20 Jose Alejandro Holguin, ALEKS Personal Advocate & Liaison (PAL) Family Practice 10/21/19 03/03/20 David Boyd MD [address] [place] [address] Assigned Surgical Provider 01/23/20 02/05/21 David Boyd MD [address] [place] [address] Urology 03/05/20 [place] [address] [place] [address] Assigned PCP 05/09/20 06/12/20 Halie Powers APRN STONEMASON HELPER [address] [place] [address] Assigned PCP 06/13/20 12/02/21 Clement Carias MD [address] [place] [address] Assigned Surgical Provider 02/06/21 11/10/22 [place] [address] [place] [address] Assigned PCP 12/03/21 Reji Coelho MD [address] [place] [address] Dermatology 11/27/22 Anil Zavala MD [address] [place] [address] Hospitalist Internal Medicine 12/01/22 Anthony Kraus MD [address] [place] [address] Cardiovascular & Thoracic Surgery 12/01/22 Anthony Kraus MD [address] [place] [address] Assigned Heart and Vascular Provider 12/30/22 Pari Aggarwal, RN Specialty Choir Teacher 01/19/23 06/15/23 Reji Coelho MD [address] [place] [address] Assigned Surgical Provider 02/17/23 05/03/23 Clement Carias MD [address] [place] [address] Assigned Surgical Provider 05/04/23 12/23/23 Chyna Taylor PA-C [address] [place] [address] Assigned Surgical Provider 12/24/23 02/22/24 Sandra Luis MD [address] [place] [address] Assigned Surgical Provider 02/23/24 documented as of this encounter
--- OUTSIDE RECORDS SUMMARY | 2024-04-18 20:40 | XMS_ITS | Clinical Summary ---
Author Organization [employer] [facility] Address [place], [place] [address] Care Team Providers Care Chain Splitter Name Role Phone Prabha Banuelos NP Primary Care Provider [phone] Allergies Active Allergy Reactions Criticality Noted Date Comments Amoxicillin Hives 07/21/2005 Piroxicam Hives 07/21/2005 Sulfamethoxazole Hives 07/21/2005 Medications calcipotriene 0.005% (DOVONEX) 0.005 % creamIndications:P soriasis Apply topically to affected area(s). Twice daily on weekends until rash is controlled, and then to Sun 120 g 3 06/03/19 10 Active clobetasol 0.05% (TEMOVATE 0.05% OINTMENT) 0.05 % ointmentIndication s:Psoriasis APPLY TOPICALLY TO AFFECTED AREA(S) 2 TIMES DAILY SUNDAY THROUGH SUNDAY UNTIL RASH CONTROLLED, THEN ONLY ON WEEKENDS. 120 g 3 02/01/20 15 Active budesonide (PULMICORT RESPULES) 0.5 mg/2 mL neb suspensionIndicati ons:Chronic obstructive pulmonary disease, unspecified COPD type (HC) INHALE 2 ML'S VIA NEBULIZER 2 TIMES DAILY 60 mL 0 03/17/20 15 Active gabapentin (NEURONTIN) 300 mg capsule Take 300 mg by mouth 3 times daily if needed (Neuropathic Pain). 11/18/19 22 Active cyclobenzaprine (FLEXERIL) 5 mg tablet Take 5 mg by mouth every 8 hours if needed for Muscle Spasm. 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 10 Tablet 08/17/19 24 Active budesonide-formote roL (Breyna) 160-4.5 mcg/actuation (160-4.5 mcg each actuation) inhaler Inhale 2 Puffs by mouth two times daily. Active FORMOTEROL FUMARATE INHL Inhale by mouth. Active levothyroxine (SYNTHROID) 112 mcg tabletIndications: Acquired hypothyroidism Take 1 Tablet (112 mcg) by mouth before breakfast. 90 Tablet 3 08/21/19 24 Active liothyronine (CYTOMEL) 5 mcg tabletIndications: Hypothyroidism (acquired) Take 3 Tablets (15 mcg) by mouth once daily. 270 Tablet 3 08/21/19 24 Active fluticasone propion-salmeteroL (Advair Diskus) 100-50 mcg/dose diskus inhalerIndications :Chronic obstructive pulmonary disease, unspecified COPD type (HC) Inhale 1 Puff by mouth every 12 hours. 08/21/19 24 Active cyanocobalamin (VITAMIN B12) 1,000 mcg/mL injectionIndicatio ns:B12 deficiency Inject 1 mL (1,000 mcg) intramuscular every 4 weeks. 3 mL 3 08/21/19 24 Active albuterol HFA (ProAir HFA) 90 mcg/actuation inhalerIndications :Chronic obstructive pulmonary disease, unspecified COPD type (HC) Inhale 1-2 Puffs by mouth every 6 hours if needed for Shortness Of Breath, Shortness of Breath 1st choice or Wheezing. 08/21/19 24 Active trimethoprim 100 mg tabletIndications: Recurrent UTI Take 1 Tablet (100 mg) by mouth once daily. At bedtime 100 Tablet 3 08/21/19 24 Active famotidine (PEPCID) 40 mg tabletIndications: Chronic reflux esophagitis Take 1 Tablet (40 mg) by mouth at bedtime. 90 Tablet 3 08/21/19 24 Active Active Problems Problem Noted Date Diagnosed Date Pulmonary nodule 11/29/2022 Overview (08/16/2023): Referred to [facility] by [email or web address] [place] Results Team. 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 Rescreen 05/2010 RIGHT GROIN PSEUDOANEURYSM 02/04/2007 Overview (02/04/2007): pt had angio 01/29/07. Esophageal reflux 02/04/2007 DYSURIA 03/22/2005 INCONTINENCE - URGE 12/13/2004 HEMATURIA 12/13/2004 DEPRESSION 07/06/2003 ANEMIA, VITAMIN B12 DEFICIENCY NEC 08/25/1999 DISORDER NEC/NOS, CERVICAL DISC 08/25/1999 OSTEOARTHROSIS NOS, LOWER LEG 08/25/1999 COPD (chronic obstructive pulmonary disease) Smoker Resolved Problems Problem Noted Date Diagnosed Date Resolved Date Recurrent UTI 03/17/2015 08/16/2023 Kidney stone on left side 03/17/2015 Medical home 10/14/2014 08/16/2023 Intermediate coronary syndrome 01/29/2007 07/27/2008 Other pulmonary embolism and infarction 01/29/2007 08/16/2023 Pyelonephritis, unspecified 01/28/2007 09/11/2011 Chest pain, unspecified 01/28/2007 0409/2008 VAGINITIS - ATROPHIC 03/22/2005 024 CORNEAL ABRASION-OS CONTACT LENS RELATED 08/20/2002 12/23/2008 Pityriasis rosea 07/29/2001 08/16/2023 RASH, OTH NONSPECIFIC SKIN ERUPTION 07/17/2001 08/16/2023 DISORDER, TOBACCO USE 08/25/19992023 OBESITY 08/25/1999 08/16/2023 CALCULUS, URINARY NOS 08/25/19992023 VARIX, LOWER EXTREMITIES NOS 08/25/1999 08/16/2023 ASTHMA NOS 08/25/1999 08/11/2014 Immunizations Name Administration Dates Next Due COVID-19 vaccine (Moderna 100mcg/0.5mL) PF, MDV 06/26/2020 Influenza A (H1N1), Inactivated 06/02/2009 Influenza A (H1N1), Inactiva natasha (Age >=3 Years) 06/02/2009 Influenza Virus, Unspecified 12/15/2018 Influenza, High-dose Inactivated 03/16/2020,12/01 Influenza, IIV3 (Age 6-35 mos) 01/19/2011 Influenza, IIV3 (Age >=3 years) 04/11/19 14,03/27/2012,01/19/2011,2009,12/30/2008,01/30/2007,03/22/2005,1 ,01/19/2000 Influenza, IIV4 12/01/2014,12/12/2013 Influenza, Inactivated AIIV4 (Age 65+ Years) Preserv Free 04/30/2023,03/02/2022,02/17/2021 Pneumococcal Poly,23-Valent (Pneumovax) 06/21/2021,02/05/2001 Pneumococcal conj 13-Valent (Prevnar 13) 11/04/2019 TD, UNSPECIFIED 02/07/2010 Td (Age >=7 Years) 03/13/1996 Tdap 06/21/2021,02/07/2010 Family History Medical History Relation Name Comments Diabetes Brother Heart Disease Brother Asthma Child Diabetes Father Heart Disease Father Stroke Maternal Grandfather Stroke Maternal Grandmother Leukemia Mother Diabetes Sister 1 Gracie Hypertension Sister 1 Gracie Macular degeneration Sister 1 Gracie Thyroid Disease Sister 1 Gracie Cancer Sister 2 Kerry Diabetes Sister 3 Esperanza Other Sister 3 Esperanza PE Thyroid Disease Sister 3 Esperanza Lupus Sister 4 Delphine Thyroid Disease Sister 5 Joanna Cancer-breast No Family History Relation Name Status Comments Brother Child Father Maternal Grandfather Maternal Grandmother Mother Sister 1 Gracie Sister 2 Kerry Sister 3 Esperanza Sister 4 Delphine Sister 5 Joanna Alive Social History Tobacco Use Types Packs/Day Years Used Date Smoking Tobacco: Every Day Cigarettes 1 50 Started: 1972 Smokeless Tobacco: Never Tobacco Cessation:Ready to Q uit: Yes; Counseling Given: Not Answered Comments:Packet given on 06/29 Alcohol Use Standard Drinks/Week Comments No 0 (1 standard drink = 0.6 oz pur e alcohol) Alcoholic Drinks/day: 0 PHQ-2 Answer Date Recorded PHQ-2 TOTAL SCORE 0 08/21/2023 Social Connections Answer Date Recorded Do you often feel lonely or isolated from those around you? 0 08/16/2023 Financial Resource Strain Answer Date R ecorded Difficulty of Paying Living Expenses 3 08/16/2023 Difficulty of Paying Living Expenses Not on file 08/16/2023 Food Insecurity Answer Date Recorded Do you worry your food will run out before you are able to buy more? 1 08/16/2023 Transportation Needs Answer Date Record ed Does lack of transportation keep you from medica l appointments? 1 08/16/2023 Does lack of transportation keep you from work, meetings or getting things that you need? 1 08/16/2023 Housing Stability Answer Date Recorded What is your housing situation today? 1 08/16/2023 Utilities Answer Date Recorded Do you have trouble paying f or utilities (for example, heat, electricity, water, phone)? 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 Not on file Not on file Obstetrics History Last Filed Vital Signs Vital Sign Reading Time Taken Comments Blood Pressure 130/60 08/21/2023 11:18 AM CDT Pulse 83 08/21/2023 11:18 AM CDT Temperature 36.4 C (97.5 F) 03/17/2015 10:57 AM TEST HOLE DRILLER Respiratory Rate 16 08/21/2014 9:39 AM CDT Oxygen Saturation 95% 08/21/2023 11:18 AM CDT Inhaled Oxygen Concentration - - Weight 72.1 kg (159 lb) 08/21/2023 11:18 AM CDT Height 156.8 cm (5' 1.75) 08/21/2023 11:18 AM C DT Body Mass Index 29.32 08/21/2023 11:18 AM CDT Plan of Treatment Health Maintenance Due Date Last Done Comments Zoster (shingles) series for age 50+ (1 of 2) 2002 RSV vaccine for adults or (1 - Risk 60-74 years 1-dose series) 2012 Mammogram for age 45-75 06/21/2023 06/21/19 23 (Verified in Care Everywhere or Patient Record), 02/18/2014, 04/21/2010 (Declined), Additional history exists Low Dose CT (for lung CA) age 50-80 11/29/2023 11/28/2022 (Verified in Care Everywhere or Patient Record), 02/12/2007, 01/28/2007 COVID-19 vaccine series ( season) 2023 05/01/2023, 03/02/2022, 02/07/2021, Additional history exists Influenza for age 65+ 12/02/2023 04/30/2023 , 03/02/2022, 02/17/2021, Additional history exists BMI (ht and wt on same day) for age 18+ 08/20/2024 08/21/2023, 08/16/2023 Depression screening for age 12+ 08/20/2024 08/21/2023, 08/21/2023, 08/17/2023, Additional history exists Medicare Wellness for age 65+ 08/21/2024 08/21/2023 Colonoscopy through age 75 08/16/202608/16 (Verified in Care Everywhere or Patient Record) Lipids for age 45-75 08/20/2028 08/21/2023, 11/28/2022 (Verified in Care Everywhere or Patient Record), 03/27/2012, Additional history exists Tetanus booster 06/22/2031 06/21/2021, 10/2009, 02/07/2010, Additional history exists Hepatitis C screening for age 18-79 Addressed 04/05/2020 (Verified in Care Everywhere or Patient Record) Overridden with the intention of not completing the topic DEXA/DXA scan for age 65+ Addressed 2020 (Verified in Care Everywhere or Patient Record) Overridden with the intention of not completing the topic Pneumococcal series for age 50+ Completed 06/21/2021, 11/04/2019, 02/05/2001 Tdap Completed 06/21/2021, 02/07/2010 Medical Devices Implanted Type Area Paperboard Boxes Estimator Device Identifier Shelf Expiration Date Model / Serial / Lot Cmnt Bone 40g Simplex P Non Atb Mv - [id number] Implanted:Qty: 2 on 08/18/2014 by Jose Alfredo Putnam MD at [facility] [place] Left: Knee [employer] 11/29/2016 6191-1-010 # / / [id number] Fem Lt Sz5 Triathlon Post Stbznon Pors - [id number] Implanted:Qty: 1 on 08/18/2014 by Jose Alfredo Putnam MD at [facility] [place] Left: Knee [employer] 05/30/2019 5515-F-501 # / / [id number] Baseplate Tib Sz5 Triathlon Pe - [id number] Implanted:Qty: 1 on 08/18/2014 by Jose Alfredo Putnam MD at [facility] [place] Left: Knee [employer] 04/01/2019 5521-B-500 # / / MKER Patella 31x9mm Triathlon Symmetric X3 - [id number] Implanted:Qty: 1 on 08/18/2014 by Jose Alfredo Putnam MD at [facility] [place] Left: Knee [employer] 01/30/2019 5550-G-319 # / / [id number] Insert Knee Sz5 9mm Triathlonpost Stbz X3 - [id number] Implanted:Qty: 1 on 08/18/2014 at [facility] [place] Left: Knee [employer] 05/02/2019 5532-G-509 # / / [id number] Procedures Procedure Name Priority Date/Time Associated Diagnosis Comments LIPID PANEL W REFLEX MEASURED LDL Routine 08/21/2023 12:13 PM CDT Hypothyroidism (acquired) Prediabetes XR MAMMO BILAT SCREEN FFDM (IA) Routine 02/18/2014 10:17 AM TEST HOLE DRILLER Other screening mammogram CT CHEST PE STUDY STAT 02/12/2007 1:1 5 PM TEST HOLE DRILLER from Last 3 Months or Most Recently Relevant to Health Maintenance Results * LIPID PANEL W REFLEX MEASURED LDL (08/21/2023 12:13 PM CDT) CHOLESTEROL,TOTAL 176 100 - 199 mg/dL 08/21/2023 7:52 PM CDT [facility] Comment: Cholesterol, Total Reference Ranges Desirable <200 mg/dL Borderline 200-239 mg/dL High >=240 mg/dL TRIGLYCERIDES 51 <150 mg/dL 08/21/2023 7:52 PM CDT [facility] HDL CHOLESTEROL 88 >40 mg/dL 7:52 PM CDT [facility] NON-HDL CHOLESTEROL 88 <145 mg/dl 08/21/2023 7:52 PM CDT [facility] CHOL/HDL RATIO 2.00 <4.50 08/21/2023 7:52 PM CDT [facility] [employer] [facility] LDL CHOLESTEROL 78 <=130 mg/dL 08/21/2023 7:52 PM CDT [facility] VLDL CHOLESTEROL 10 <=30 mg/dL 08/21/2023 7:52 PM CDT [facility] PROVIDER ORDERED STATUS RANDOM 08/21/2023 7:52 PM CDT [facility] Blood BLOOD SPECIMEN / Unknown Venipuncture / Unknown 08/21/2023 12:13 PM CDT 08/21/2023 12:13 PM CDT us Prabha Banuelos [employer]EL[employer] CHEMISTRY Final Res ult [facility] [address] [place] [id number], [place] * XR MAMMO BILAT SCREEN FFDM (02/18/2014 10:17 AM TEST HOLE DRILLER) Anatomical Region Laterality Modality BREASTS, Breast Left, Breast Right Bilateral Mammography Impressions 02/18/2014 3:35 PM TEST HOLE DRILLER There is no radiographic evidence for malignancy. Recommend annual mammograms. A lay language report of this examination will be provided to the patient. MAMMOGRAM ASSESSMENT: ACR 1 Negative Narrative 02/18/2014 3:35 PM TEST HOLE DRILLER XR MAMMO BILAT SCREEN FFDM [G0202.0] CLINICAL HISTORY: This is an asymptomatic 63 y.o. patient. INDICATION FOR EXAM: Mammogram Screening. TECHNIQUE: CC & MLO views were obtained. This digital study was evaluated with the assistance of Computer-Aided Detection. COMPARISON FILM: Yes 04/05/07 FINDINGS: Mammographically, the breast tissue has scattered fibroglandular densities. There are no dominant masses, suspicious micro calcifications or areas of architectural distortion. Procedure Note Stiven Arevalo MD - 02/18/2014 XR MAMMO BILAT SCREEN FFDM [G0202.0] CLINICAL HISTORY: This is an asymptomatic 63 y.o. patient. INDICATION FOR EXAM: Mammogram Screening. TECHNIQUE: CC & MLO views were obtained. This digital study was evaluatedwith the assistance of Computer-Aided Detection. COMPARISON FILM: Yes 04/05/07 FINDINGS: Mammographically, the breast tissue has scatteredfibroglandular densities. There are no dominant masses, suspicious microcalcifications or areas of architectural distortion. IMPRESSION: There is no radiographic evidence for malignancy. Recommendannual mammograms. A lay language report of this examination will be provided to the patient. MAMMOGRAM ASSESSMENT: ACR 1 Negative us Kayla Thakkar MD MAMMO Final Result * CT CHEST PE STUDY (02/12/2007 1:15 PM TEST HOLE DRILLER) Anatomical Region Laterality Modality CHEST, THORAX, HEART Computed To mography 02/12/2007 1:15 PM TEST HOLE DRILLER Narrative 02/12/2007 1:46 PM TEST HOLE DRILLER CTA CHEST WITH CONTRAST: INDICATION: 56-year-old female with history of pulmonary embolism, with acute onset of shortness of breath. TECHNIQUE: After nonenhanced recycling manager images were obtained, helical acquisition through the chest was performed during the arterial phase of contrast enhancement. Thin-section reconstruction was performed in the axial plane, with coronal MIP reformations. COMPARISON: 01/28/07 CT. FINDINGS: CHEST: No evidence of acute pulmonary embolus. Interval resolution of the previously present small pulmonary emboli on the prior study. No pleural effusions. No adenopathy in the chest. No evidence of pulmonary infiltrates or masses. ABDOMEN: Views of the upper abdomen normal. CONCLUSIONS: Normal CTA chest. There has been interval resolution of the previously present pulmonary emboli on 01/28/07. Procedure Note Paulino Rm - 02/12/2007 CTA CHEST WITH CONTRAST: INDICATION: 56-year-old female with history of pulmonary embolism, withacute onset of shortness of breath. TECHNIQUE: After nonenhanced recycling manager images were obtained, helicalacquisition through the chest was performed during the arterial phase ofcontrast enhancement. Thin-section reconstruction was performed in theaxial plane, with coronal MIP reformations. COMPARISON: 01/28/07 CT. FINDINGS: CHEST: No evidence of acute pulmonary embolus. Interval resolution ofthe previously present small pulmonary emboli on the prior study. Nopleural effusions. No adenopathy in the chest. No evidence of pulmonaryinfiltrates or masses. ABDOMEN: Views of the upper abdomen normal. CONCLUSIONS: Normal CTA chest. There has been interval resolution of thepreviously present pulmonary emboli on 01/28/07. Thomas Yates MD CT Final Result from Last 3 Months or Most Recently Relevant to Health Maintenance Insurance [employer] MEDICARE [place] ONLY NONPROFIT INSURANCE TRUST NONPApisphere INSURANCE TRUST PREFERRED ONE CHOICE Advance Directives * Full Code (Latest Code Status on File) Date Activated Date Inactivated Comments 08/18/2014 10:02 AM 08/21/2014 5:24 PM * Full Code Date Activated Date Inactivated Comments 08/18/2014 8:30 AM 08/18/2014 10:02 AM * Full Code Date Activated Date Inactivated Comments 02/04/2007 3:08 PM 02/06/2007 7:41 PM * Full Code Date Activated Date Inactivated Comments 01/28/2007 3:20 AM 01/30/2007 7:43 PM Care Teams Chain Splitter Relationship Specialty Start [place] [address] [place] [address] PCP - General Nurse Practitioner 08/21/23
--- OUTSIDE RECORDS SUMMARY | 2024-04-18 20:40 | XMS_ITS | Encounter Summary ---
Author Organization [place] Address [address] [place] [address]. [place] [address] Care Team Providers Care Surgical Coder Name Role Phone Halie Powers APRN BEAN SNIPPER Primary Care Provider + Halie Powers APRN BEAN SNIPPER Unavailable + Halie Powers APRN BEAN SNIPPER Unavailable + Halie Powers APRN BEAN SNIPPER Unavailable + Jose Alejandro Holguin RN Unavailable Unavailable David Boyd MD Unavailable [phone] David Boyd MD Unavailable [phone] Halie Powers APRN BEAN SNIPPER Primary Care Provider + Kedar Acevedo MD Unavailable Halie Powers APRN BEAN SNIPPER Unavailable +[phone] Clement Carias MD Unavailable [phone] Coming Marly Villegas MD Primary Care Provid er Coming Marly Villegas MD Unavailable + [phone] Reji Coelho MD Unavailable Anil Zavala MD Unavailable + [phone] Anthony Kraus MD Unavailable Anthony Kraus MD Unavailable [phone] Pari Aggarwal RN Unavailable Unavailable Reji Coelho MD Unavailable Clement Carias MD Unavailable [phone] Chyna Taylor PA-C Unavailable +[phone] Sandra Luis MD Unavailable [phone] Hortensia Aguilar APRN [facility] Primary Care Pro vider Reason for Visit * Reason Comments Medication Refill hydrOXYzine (ATARAX) 25 MG tablet Encounter Details Date Type Department Care Team (Late st Contact Info) Description 05/13/[address], [address] [place] [address] Samuel Low PA-C [address] [place] [address] Medication Refill (hydrOXYzine (ATARAX) 25 MG tablet) Social History Tobacco Use Types Packs/Day Years Used Date Smoking Tobacco: Former Smokeless Tobacco: Never Alcohol Use Standard Drinks/Week Comments No 0 (1 standard drink = 0.6 oz pur e alcohol) PHQ-2 Answer Date Recorded PHQ-2 Score 0 04/09/2018 Comments No Sex and Gender Information Value Date Recorded Sex Assigned at Female 05/01/2020 8:36 AM EYELET OPERATOR Legal Sex Female 3:25 AM EYELET OPERATOR Gender Identity Female 05/01/2020 8:36 AM EYELET OPERATOR Sexual Orientation Not on file documented as of this encounter Miscellaneous Notes * Telephone Encounter - Echo Waters RN - 05/14/2018 9:41 AM CST [place] [facility] [place] Protocol. Echo Waters RN ET OPERATOR * Telephone Encounter - Tim Hughes - 05/13/2018 10:53 AM CST Requested Prescriptions Pending Prescriptions Disp Refills ??? hydrOXYzine (ATARAX) 25 MG tablet [Pharmacy Med Name: HYDROXYZINE HCL TABS 25MG] Last Written Prescription Date: 11/30/17 Last Fill Quantity: 90 TABLET, # refills: 1 Last office visit: 03/12/2018 with prescribing provider: DWAYNE Future Office Visit: 90 tablet 1 Sig: TAKE 1 TABLET NIGHTLY NEEDED Antihistamines Protocol Passed - 05/13/2018 10:50 AM Passed - Recent (12 mo) or future (30 days) visit within the authorizing provider's specialty Patient had office visit in the last 12 months or has a visit in the next 30 days with authorizing provider or within the authorizing provider's specialty. See Patient Info tab in inbasket, or Choose Columns in Meds & Orders section of the refill encounter. Passed - Patient is age 3 or older Apply age and/or weight-based dosing for peds patients age 3 and older. Forward request to provider for patients under the age of 3. Passed - Medication is active on med list ET OPERATOR documented in this encounter Plan of Treatment Upcoming Encounters Date Type Department Care Team (Late st Contact Info) Description 04/30/2024 11:00 AM EYELET OPERATOR Office Visit [address] [address] Hortensia Aguilar APRN [address] [phone] documented as of this encounter Visit Diagnoses Diagnosis Psoriasis Other psoriasis documented in this encounter Additional Health Concerns Infection Onset Date Last Indicated Resolved Time Rule Out COVID-19 08/18/2019 08/19/2019 08/19/2019 10:41 PM CDT 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 12/20/2023 Rule Out C-difficile 12/10/2020 12/13/2020 021 5:27 PM CDT C-difficile 12/13/2020 12/13/2020 01/12/2021 11:3 9 PM CDT Rule Out C-difficile 05/09/2021 05/09/2021 022 11:39 PM EYELET OPERATOR Rule Out C-difficile 09/13/2021 09/15/2021 06/16/2 022 3:23 PM CDT C-difficile 09/15/2021 09/15/2021 10/15/2021 11:3 9 PM CDT Rule Out C-difficile 11/25/2021 11/25/2021 022 11:39 PM CDT Rule Out COVID-19 08/21/2023 08/21/2023 08/21/2023 7:28 PM CDT Rule Out COVID-19 09/05/2023 09/05/2023 09/05/2023 1:51 PM CDT documented as of this encounter Care Teams Surgical Coder Relationship Specialty Start Date End Date Halie Powers APRN BEAN SNIPPER PCP - General Nurse Practitioner - Family 07/24/17 04/02/20 Halie Powers APRN BEAN SNIPPER [address] [address] PCP - Assigned PCP 07/06/17 06/04/18 Halie Powers APRN BEAN SNIPPER [address] [address] PCP - General Family Medicine 04/03/20 06/20/21 [place] [address] [place] [address] PCP - General Family Medicine 06/21/21 03/03/24 Hortensia Aguilar APRN BEAN SNIPPER [address] [place] [address] PCP - General Family Medicine 03/04/24 Halie Powers APRN BEAN SNIPPER [address] [address] Assigned PCP 08/17/19 05/08/20 Halie Powers APRN BEAN SNIPPER [address] [place] [address] Assigned PCP 07/06/17 08/16/19 Jose Alejandro Holguin, RN Personal Advocate & Liaison (PAL) Family Practice 10/21/19 03/03/20 David Boyd MD [address] [place] [address] Assigned Surgical Provider 01/23/20 02/05/21 David Boyd MD [address] [place], [place] [address] Urology 03/05/20 [place] [address] [place] [address] Assigned PCP 05/09/20 06/12/20 Halie Powers APRN BEAN SNIPPER [address] [place] [address] Assigned PCP 06/13/20 12/02/21 Clement Carias MD [address] [place] [address] [id number] Assigned Surgical Provider 02/06/21 11/10/22 [place] [address] [place] [address] Assigned PCP 12/03/21 Reji Coelho MD [address] [place] [address] Dermatology 11/27/22 Anil Zavala MD [address] [place] [address] Hospitalist Internal Medicine 12/01/22 Anthony Kraus MD [address] [place] [address] Cardiovascular & Thoracic Surgery 12/01/22 Anthony Kraus MD [address] [place] [address] Assigned Heart and Vascular Provider 12/30/22 Pari Aggarwal, RN Specialty Oval Or Circular Glass Cutter 01/19/23 06/15/23 Reji Coelho MD [address] [place] [address] Assigned Surgical Provider 02/17/23 05/03/23 Clement Carias MD [address] [place] [address] Assigned Surgical Provider 05/04/23 12/23/23 Chyna Taylor PA-C [address] [place] [address] Assigned Surgical Provider 12/24/23 02/22/24 Sandra Luis MD [address] [facility] [place] [address] [place] [address] Assigned Surgical Provider 02/23/24 documented as of this encounter
--- OUTSIDE RECORDS SUMMARY | 2024-04-18 20:40 | XMS_ITS | Encounter Summary ---
Author Organization [place] Address [address] [place] [address]. [place] [address] Care Team Providers Care Associate Product Manager Name Role Phone Halie Powers APRN LOCKSTITCH COAT JOINER Primary Care Provider + Halie Powers APRN, CNP Unavailable + Jose Alejandro Holguin RN Unavailable Unavailable David Boyd MD Unavailable + David Boyd MD Unavailable + Halie Powers APRN LOCKSTITCH COAT JOINER Primary Care Provider + Kedar Acevedo MD Unavailable + Halie Powers APRN LOCKSTITCH COAT JOINER Unavailable + Clement Carias MD Unavailable + Coming Marly Villegas MD Primary Care Provid er Coming Marly Villegas MD Unavailable [phone] Reji Coelho MD Unavailable Anil Zavala MD Unavailable + [phone] Anthony Kraus MD Unavailable [phone] Anthony Kraus MD Unavailable Pari Aggarwal RN Unavailable Unavailable Reji Coelho MD Unavailable Clement Carias MD Unavailable +[phone] Chyna Taylor PA-C Unavailable Sandra Luis MD Unavailable [phone] Hortensia Aguilar APRN LOCKSTITCH COAT JOINER Primary Care Pro vider Encounter Details Date Type Department Care Team (Late st Contact Info) Description 11/27/2019 MyC Medical Advice [address] [phone] Jose Alejandro Holguin, ALEKS Social History Tobacco Use Types Packs/Day Years Used Date Smoking Tobacco: Former Smokeless Tobacco: Never Alcohol Use Standard Drinks/Week Comments No 0 (1 standard drink = 0.6 oz pur e alcohol) PHQ-2 Answer Date Recorded PHQ-2 Score 0 04/09/2018 Comments No Sex and Gender Information Value Date Recorded Sex Assigned at Female 05/01/2020 8:36 AM PHOTO MASK PATTERN GENERATOR Legal Sex Female 3:25 AM PHOTO MASK PATTERN GENERATOR Gender Identity Female 05/01/2020 8:36 AM PHOTO MASK PATTERN GENERATOR Sexual Orientation Not on file COVID-19 Exposure Response Date Recorded In the last month, have you been in contact with someone who was confirmed or suspected to have Coronavirus / COVID-19? No / Unsure 11/18/2019 5:44 AM CDT documented as of this encounter Plan of Treatment Upcoming Encounters Date Type Department Care Team (Late st Contact Info) Description 04/30/2024 11:00 AM PHOTO MASK PATTERN GENERATOR Office Visit [address] [phone] Hortensia Aguilar APRN [facility] [id number] [place] [address] documented as of this encounter Visit Diagnoses Not on filedocumented in this encounter Additional Health Concerns Infection Onset Date Last Indicated Resolved Time 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 12/20/2023 Rule Out C-difficile 12/10/2020 12/13/2020 021 5:27 PM CDT C-difficile 12/13/2020 12/13/2020 01/12/2021 11:3 9 PM CDT Rule Out C-difficile 05/09/2021 05/09/2021 022 11:39 PM PHOTO MASK PATTERN GENERATOR Rule Out C-difficile 09/13/2021 09/15/2021 022 3:23 PM CDT C-difficile 09/15/2021 09/15/2021 10/15/2021 11:3 9 PM CDT Rule Out C-difficile 11/25/2021 11/25/2021 022 11:39 PM CDT Rule Out COVID-19 08/21/2023 08/21/2023 08/21/2023 7:28 PM CDT Rule Out COVID-19 09/05/2023 09/05/2023 09/05/2023 1:51 PM CDT documented as of this encounter Care Teams Associate Product Manager Relationship Specialty Start Date End Date Halie Powers APRN LOCKSTITCH COAT JOINER PCP - General Nurse Practitioner - Family 07/24/17 04/02/20 Halie Powers APRN LOCKSTITCH COAT JOINER [address] [place] [address] PCP - General Family Medicine 04/03/20 06/20/21 [place] [address] [place], [place] [id number] PCP - General Family Medicine 06/21/21 03/03/24 Hortensia Aguilar APRN LOCKSTITCH COAT JOINER [address] [facility] [place] [id number] PCP - General Family Medicine 03/04/24 Halie Powers APRN LOCKSTITCH COAT JOINER [address] [place] [address] Assigned PCP 08/17/19 05/08/20 McFeters, Jose Alejandro, RN Personal Advocate & Liaison (PAL) Family Practice 10/21/19 03/03/20 David Boyd MD [address] [place] [address] Assigned Surgical Provider 01/23/20 02/05/21 David Boyd MD [address] [place] [address] Urology 03/05/20 [place] [address] [place] [address] Assigned PCP 05/09/20 06/12/20 Halie Powers APRN [facility] [address] [place] [address] Assigned PCP 06/13/20 12/02/21 Clement Carias MD [address] [place], [place] [address] Assigned Surgical Provider 02/06/21 11/10/22 [place] [address] [place] [address] Assigned PCP 12/03/21 Reji Coelho MD [address] [place], [place] [address] Dermatology 11/27/22 Anil Zavala MD [address] [place] [address] Hospitalist Internal Medicine 12/01/22 Anthony Kraus MD [address] [place] [address] Cardiovascular & Thoracic Surgery 12/01/22 Anthony Kraus MD [address] [place] [address] Assigned Heart and Vascular Provider 12/30/22 Pari Aggarwal, RN Specialty Sld Educational Aide 01/19/23 06/15/23 Reji Coelho MD [address] [place] [address] Assigned Surgical Provider 02/17/23 05/03/23 Clement Carias MD [address] [place] [address] Assigned Surgical Provider 05/04/23 12/23/23 Chyna Taylor PA-C [address] [place] [address] Assigned Surgical Provider 12/24/23 02/22/24 Sandra Luis MD [address] [address] Assigned Surgical Provider 02/23/24 documented as of this encounter
--- OUTSIDE RECORDS SUMMARY | 2024-04-18 20:40 | XMS_ITS | Encounter Summary ---
Author Organization [facility] [place] Address [address] [place] [address]. [place] [address] Care Team Providers Care Jewelry Cutter Name Role Phone Halie Powers APRN TRAY SETTER Primary Care Provider + Halie Powers APRN, CNP Unavailable + Jose Alejandro Holguin RN Unavailable Unavailable David Boyd MD Unavailable + David Boyd MD Unavailable + Halie Powers APRN TRAY SETTER Primary Care Provider + Kedar Acevedo MD Unavailable + Halie Powers APRN TRAY SETTER Unavailable + Clement Carias MD Unavailable + Coming Marly Villegas MD Primary Care Provid er Coming Marly Villegas MD Unavailable +[phone] Reji Coelho MD Unavailable Anil Zavala MD Unavailable + [phone] Anthony Kraus MD Unavailable [phone] Anthony Kraus MD Unavailable [phone] Pari Aggarwal RN Unavailable Unavailable Reji Coelho MD Unavailable Clement Carias MD Unavailable +[phone] Chyna Taylor PA-C Unavailable Sandra Luis MD Unavailable [phone] Hortensia Aguilar APRN [facility] Primary Care Pro vider Reason for Visit * Reason Onset Date Comments Referral 09/02/2019 Encounter Details Date Type Department Care Team (Late st Contact Info) Description 09/02/2019 Telephone [facility] [address] [place] [address] Unknown Referral Social History Tobacco Use Types Packs/Day Years Used Date Smoking Tobacco: Former Smokeless Tobacco: Never Alcohol Use Standard Drinks/Week Comments No 0 (1 standard drink = 0.6 oz pur e alcohol) PHQ-2 Answer Date Recorded PHQ-2 Score 0 04/09/2018 Comments No Sex and Gender Information Value Date Recorded Sex Assigned at Female 05/01/2020 8:36 AM LEAD SHIPPER Legal Sex Female 3:25 AM LEAD SHIPPER Gender Identity Female 05/01/2020 8:36 AM LEAD SHIPPER Sexual Orientation Not on file COVID-19 Exposure Response Date Recorded In the last month, have you been in contact with someone who was confirmed or suspected to have Coronavirus / COVID-19? No / Unsure 09/02/2019 12:55 PM CDT documented as of this encounter Miscellaneous Notes * Telephone Encounter - Geo New - 09/02/2019 11:51 AM CDT [facility] Phone Message May a detailed message be left on voicemail: yes Reason for Call: Appointment Intake Referring Provider Name: Parul Velezranulfo Diagnosis and/or Symptoms: History of kidney stones , known kidney stone on left side Action Taken: Message routed to: [facility] Urology Travel Screening: Not Applicable documented in this encounter Plan of Treatment Upcoming Encounters Date Type Department Care Team (Late st Contact Info) Description 04/30/2024 11:00 AM LEAD SHIPPER Office Visit [address] [phone] Hortensia Aguilar APRN TRAY SETTER [address] [place] [address] documented as of this encounter Visit Diagnoses Not on filedocumented in this encounter Additional Health Concerns Infection Onset Date Last Indicated Resolved Time 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 12/20/2023 Rule Out C-difficile 12/10/2020 12/13/2020 021 5:27 PM CDT C-difficile 12/13/2020 12/13/2020 01/12/2021 11:3 9 PM CDT Rule Out C-difficile 05/09/2021 05/09/2021 022 11:39 PM LEAD SHIPPER Rule Out C-difficile 09/13/2021 09/15/2021 022 3:23 PM CDT C-difficile 09/15/2021 09/15/2021 10/15/2021 11:3 9 PM CDT Rule Out C-difficile 11/25/2021 11/25/2021 022 11:39 PM CDT Rule Out COVID-19 08/21/2023 08/21/2023 08/21/2023 7:28 PM CDT Rule Out COVID-19 09/05/2023 09/05/2023 09/05/2023 1:51 PM CDT documented as of this encounter Care Teams Jewelry Cutter Relationship Specialty Start Date End Date Halie Powers APRN TRAY SETTER PCP - General Nurse Practitioner - Family 07/24/17 04/02/20 Halie Powers APRN TRAY SETTER [address] [address] PCP - General Family Medicine 04/03/20 06/20/21 [place] [address] [place] [address] PCP - General Family Medicine 06/21/21 03/03/24 Hortensia Aguilar APRN TRAY SETTER [address] [place] [id number] PCP - General Family Medicine 03/04/24 Halie Powers APRN TRAY SETTER [address] [place] [address] Assigned PCP 08/17/19 05/08/20 Jose Alejandro Holguin, ALEKS Personal Advocate & Liaison (PAL) Family Practice 10/21/19 03/03/20 David Boyd MD [address] [place] [address] Assigned Surgical Provider 01/23/20 02/05/21 David Boyd MD [address] [place], [place] [address] Urology 03/05/20 [place] [address] [place] [address] Assigned PCP 05/09/20 06/12/20 Halie Powers APRN TRAY SETTER [address] [address] Assigned PCP 06/13/20 12/02/21 Clement Carias MD [address] [place] [address] Assigned Surgical Provider 02/06/21 11/10/22 [place] [address] [place] [address] Assigned PCP 12/03/21 Reji Coelho MD [address] [place] [address] Dermatology 11/27/22 Anil Zavala MD [address] [place] [address] Hospitalist Internal Medicine 12/01/22 Anthony Kraus MD [address] [place] [address] Cardiovascular & Thoracic Surgery 12/01/22 Anthony Kraus MD [address] [place] [address] Assigned Heart and Vascular Provider 12/30/22 Pari Aggarwal, RN Specialty Prototype Deicer Assembler 01/19/23 06/15/23 Reji Coelho MD [address] [place] [address] Assigned Surgical Provider 02/17/23 05/03/23 Clement Carias MD [address] [place] [address] Assigned Surgical Provider 05/04/23 12/23/23 Chyna Taylor PA-C [address] [place] [address] Assigned Surgical Provider 12/24/23 02/22/24 Sandra Luis MD [address] [place] [address] Assigned Surgical Provider 02/23/24 documented as of this encounter
[2024-04-18 20:51] VITALS: BP 166/56; PULSE 77; RESP 18; TEMP 37.6; O2SAT 93; BMI 26.6
--- NOTE | 2024-04-18 20:59 | ED_ITS ---
HPI - General Adult General Date Seen: 04/18/24 Chief complaint: Nausea/Vomiting Stated complaint: vomiting Time Seen by Provider: 04/18/24 20:37 Source: patient Mode of arrival: ambulatory Limitations: no limitations History of Present Illness HPI narrative: Patient is a 73-year-old female presenting to the emergency department for weakness. She is home alone with her . She states for the past 4 days she has been having multiple episodes of diarrhea with incontinence of stool. She states when symptoms 1st started she felt like she is having a kidney stone but the flank pain has since resolved. Initially had some dysuria but that has also improved. Has also vomited several times. Is not having any chest pain but does have intermittent episodes of shortness of breath. She has not had much of an appetite since she is feeling dehydrated. She states she is feeling very weak and he is not sure what is wrong with her. Is not aware of any sick contacts. She has been able ambulate around the home. Is not currently feeling nauseated. Has not had any fevers or chills but has had lightheadedness. Denies headache, vision changes, numbness, vision changes. Does have some mild diffuse abdominal pain that she cannot pinpoint. Denies any antibiotic use the past few months or any recent hospitalizations. Related Data Home Medications ?Medication ?Instructions ?Recorded ?Confirmed bupropion HCl 150 mg tablet,12 hr mg PO 04/18/24 sustained-release hydroxyzine HCl 25 mg tablet 25 mg PO QPM PRN 04/18/24 04/18/24 ipratropium 0.5 mg-albuterol 3 mg 1 inhalation Q6H PRN wheezing 04/18/24 (2.5 mg base)/3 mL nebulization soln Allergies Allergy/AdvReac Type Severity Reaction Status Date / Time No Known Drug Allergies Allergy Verified 04/18/24 23:31 Review of Systems Status of ROS: Reports: 10 or more systems reviewed and unremarkable except as noted in History and below Exam Const: Vital Signs, click to edit/add: Vital Signs - 24 hr 04/18/24 20:51 Temperature 99.6 F Pulse Rate [Pulse Oximeter] 77 Respiratory Rate 18 Blood Pressure [Le ft Upper Arm] 166/56 H Pulse Oximetry 93 Course Vital Signs Vital signs: Initial Vital Signs Temperature 99.6 F 04/18/24 20:51 Temperature Source Temporal Artery Scan 04/18/24 20:51 Pulse Rate 77 04/18/24 20:51 Respiratory Rate 18 04/18/24 20:51 Blood Pressure 166/56 H 04/18/24 20:51 Blood Pressure Mean 92 04/18/24 20:51 Blood Pressure Position Sitting 04/18/24 20:51 Pulse Oximetry 93 04/18/24 20:51 Vital Signs Temperature 99.6 F 04/18/24 20:51 Pulse Rate 77 04/18/24 20:51 Respiratory Rate 18 04/18/24 20:51 Blood Pressure 166/56 H 04/18/24 20:51 Pulse Oximetry 93 04/18/24 20:51 Temperature 99.6 F 04/18/24 20:51 Pulse Rate 77 04/18/24 20:51 Respiratory Rate 18 04/18/24 20:51 Blood Pressure 166/56 H 04/18/24 20:51 Pulse Oximetry 93 04/18/24 20:51 Medications Administered Medications: Discontinued Medications Generic Name Dose Route Start Last Admin Trade Name Lauroq PRN Reason Stop Dose Admin Lactated Ringer's 1,000 mls @ 1,000 mls/hr 04/18/24 20:56 04/18/24 22:13 Lactated Ringers 1000 Ml IV 04/18/24 21:55 Infused .Q1H ONE Infusion Ondansetron HCl 4 mg 04/18/24 20:56 04/18/24 21:13 Ondansetron 2 Mg/Ml Inj IVP 04/18/24 20:57 Not Given ONCE ONE Medical Decision Making [facility] Narrative Medical decision making narrative: Patient is a 73-year-old female presenting for weakness. The differential diag nosis of generalized weakness is broad and includes infection, electrolyte abnormalities, ACS, arrhythmia, hypoglycemia, electrolyte abnormality, respiratory failure, anemia, hypothyroidism, dehydration, medication induced etc. concerns at this time include pneumonia as she does have a cough. Since he is also off his shortness of breath there is some mild concern for a blood clot she does have COVID. Will do a D-dimer and will wait to choose imaging based on the results of the D-dimer. EKG and troponin order to look for signs of ACS. With her abdominal pain I will order a CT scan of the abdomen. There is some concern for C diff at this time so test was ordered. Will give her nausea for pain. She is likely very dehydrated so a L of fluids was given. Also order COVID/flu/RSV, CBC, magnesium, CMP, urinalysis. Lab work shows no concerning abnormalities other than elevated white count at 13.53. She has been vomiting so this could be a stress reaction. CMP shows no concerning findings. EKG and troponin showed no concerning findings. Viral swab sent urinalysis showed no concerning abnormalities. She does have some blood in her urine but no red blood cells. CT scan of the abdomen pelvis show possible enterocolitis. This was be consistent with her GI symptoms. There is also some concerns about ascending urinary tract infection. She did initially have this left flank pain that has since fully resolved and at this time her urinalysis does not show to be a UTI so I do not believe she is having an infection. She does have some minimal intrahepatic biliary dilation but this can be an outpatient MRCP. Chest CTA shows PE with some suggestion of mild right heart strain. EKG does not show any strain pattern. Does also appear to have scattered nodules dye concerning for metastatic disease. This can be followed up outpatient for repeat imaging to follow. Also show signs of bronchiolitis. She is otherwise stable vital signs I do believe she is someone that can be kept here in [place]. I did start her on heparin. At this time I believe her white count is more related to her vomiting and a stress reaction rather than a bacterial infection so I did not start her on antibiotic. I do not believe she is a candidate for discharge and would best be served in the hospital. I spoke to the accepting hospitalist who accepted her for admission. Lab Data Labs: Lab Results 04/18/24 04/18/24 04/18/24 Range/Units 20:45 20:56 21:00 WBC 13.83 H (4.50-11.00) K/uL RBC 4.22 (4.00-5.20) m/uL Hgb 12.7 (12.0-16.0) gm/dL Hct 39.4 (33.0-51.0) % MCV 93 (80-100) fL MCH 30 (26-34) pg MCHC 32 (32-36) gm/dL RDW Coeff of [place] 13.3 (11.5-15.5) % Plt Count 186 (140-440) K/uL Neut % (Auto) 81.9 H (42.0-72.0) % Lymph % (Auto) 9.8 L (20-44) % [place] % (Auto) 6.7 (0.0-11.0) % Eos % (Auto) 1.2 (0.0-7.0) % Baso % (Auto) 0.1 (0.0-3.0) % Neut # (Auto) 11.30 H (1.7-7.0) K/uL Lymph # (Auto) 1.40 (0.90-2.90) K/uL [place] # (Auto) 0.90 (0.00-0.90) K/UL Eos # (Auto) 0.20 (0.00-0.50) K/uL Baso # (Auto) 0.00 (0.00-0.30) K/uL Abs Immat Gran (auto) 0.00 (0.00-0.30) K/uL Imm/Tot Granulo (auto) 0.3 % Sodium 135 (135-149) mmol/L Potassium 3.6 (3.6-5.1) mmol/L Chloride 109 (96-114) mmol/L Carbon Dioxide 20 (20-32) mmol/L Anion Gap 6 L (7-15) mEq/L BUN 22 (7-30) mg/dL Creatinine 1.1 (0.5-1.5) mg/dL Estimated Creat Clear 38.80 Estimated GFR 54 ml/min Glucose 87 (60-115) mg/dL Calcium 8.4 (8.4-10.6) mg/dL Magnesium 2.0 (1.5-2.6) mg/dL Total Bilirubin 0.7 (0.1-1.5) mg/dL AST 22 (12-35) U/L ALT 17 (4-35) U/L Alkaline Phosphatase 76 (40-150) U/L Troponin I 0.03 (0.01-0.04) ng/mL Total Protein 5.6 L (6.0-8.3) g/dL Albumin 3.0 L (3.3-5.0) g/dL Urine Color (Yellow) Urine Appearance (Clear) Urine pH (5.0-8.5) Ur Specific [place] (1.000-1.030) Urine Protein (Negative) Urine Glucose (UA) (Negative) Urine Ketones (Negative) Urine Blood (Negative) Urine Nitrite (Negative) Urine Bilirubin (Negative) Urine Urobilinogen (0.2-1.0) Ur Leukocyte Esterase (Negative) Urine RBC (0-2) Urine WBC (0-5) Ur Squamous Epith Cells (None-Few) Urine Bacteria (None) SARS-CoV-2 (PCR) Negative SARS-CoV-2 (Negative) Influenza Type A (PCR) Negative PCR FLU A (Negative) Influenza Type B (PCR) Negative PCR FLU B (Negative) RSV (PCR) Negative PCR RSV (Negative) POC Creatinine 1.3 (0.6-1.3) mg/dl 04/18/24 04/19/24 Range/Units 23:16 00:54 WBC 13.53 H (4.50-11.00) K/uL RBC 4.22 (4.00-5.20) m/uL Hgb 12.8 (12.0-16.0) gm/dL Hct 39.1 (33.0-51.0) % MCV 93 (80-100) fL MCH 30 (26-34) pg MCHC 33 (32-36) gm/dL RDW Coeff of [place] (11.5-15.5) % Plt Count 187 (140-440) K/uL Neut % (Auto) (42.0-72.0) % Lymph % (Auto) (20-44) % [place] % (Auto) (0.0-11.0) % Eos % (Auto) (0.0-7.0) % Baso % (Auto) (0.0-3.0) % Neut # (Auto) (1.7-7.0) K/uL Lymph # (Auto) (0.90-2.90) K/uL [place] # (Auto) (0.00-0.90) K/UL Eos # (Auto) (0.00-0.50) K/uL Baso # (Auto) (0.00-0.30) K/uL Abs Immat Gran (auto) (0.00-0.30) K/uL Imm/Tot Granulo (auto) % Sodium (135-149) mmol/L Potassium (3.6-5.1) mmol/L Chloride (96-114) mmol/L Carbon Dioxide (20-32) mmol/L Anion Gap (7-15) mEq/L BUN (7-30) mg/dL Creatinine (0.5-1.5) mg/dL Estimated Creat Clear Estimated GFR ml/min Glucose (60-115) mg/dL Calcium (8.4-10.6) mg/dL Magnesium (1.5-2.6) mg/dL Total Bilirubin (0.1-1.5) mg/dL AST (12-35) U/L ALT (4-35) U/L Alkaline Phosphatase (40-150) U/L Troponin I (0.01-0.04) ng/mL Total Protein (6.0-8.3) g/dL Albumin (3.3-5.0) g/dL Urine Color Yellow (Yellow) Urine Appearance Clear (Clear) Urine pH 5.5 (5.0-8.5) Ur Specific [place] 1.020 (1.000-1.030) Urine Protein 1+ A (Negative) Urine Glucose (UA) Negative (Negative) Urine Ketones 4+ A (Negative) Urine Blood 2+ A (Negative) Urine Nitrite Negative (Negative) Urine Bilirubin 1+ A (Negative) Urine Urobilinogen 0.2 (0.2-1.0) Ur Leukocyte Esterase Trace A (Negative) Urine RBC 0-2 (0-2) Urine WBC 0-2 (0-5) Ur Squamous Epith Cells None (None-Few) Urine Bacteria Few A (None) SARS-CoV-2 (PCR) (Negative) Influenza Type A (PCR) (Negative) Influenza Type B (PCR) (Negative) RSV (PCR) (Negative) POC Creatinine (0.6-1.3) mg/dl Imaging Data CTA chest: Attestation: I have reviewed the pertinent imaging results. Radiologist's impression: 1. Pulmonary emboli involving the lobar and segmental branches of the right upper and middle lobes in addition to some segmental and subsegmental branches of the right lower lobe. Suggestion of mild right heart strain. 2. Small regions of tree-in-bud nodularity within the right lower lobe may reflect nonspecific infectious/inflammatory bronchiolitis. 3. Trace left pleural effusion. 4. Scattered pulmonary nodules, including a mildly spiculated right upper lobe pulmonary nodule measuring 8 mm. Given patient`s history, findings are concerning for metastatic disease. Recommend comparison with prior imaging, if available, to assess for interval change. 5. Mild dilatation of the main pulmonary artery may be seen in the setting of pulmonary hypertension. Above critical findings were discussed with Dr. Pearson via telephone on 04/19/2024 12:23 a.m. [employer]. Please note that all CT scans at this facility use dose modulation, iterative reconstruction, and/or weight-based dosing when appropriate to reduce radiation dose to as low as reasonably achievable. Dictated by Rio Carranza MD @ 04/19/2024 12:23:[address] scan abdomen pelvis: Attestation: I have reviewed the pertinent imaging results. Radiologist's impression: 1. Mild scattered colonic and small bowel wall thickening may reflect a nonspecific infectious/inflammatory enterocolitis. 2. Delayed left renal nephrogram with prominent left ureteral wall thickening, findings which may be chronic, however clinical correlation is recommended to exclude ascending urinary tract infection. 3. Mild bladder wall thickening. Correlate for cystitis. 4. Nonobstructing bilateral renal calculi. No hydronephrosis or hydroureter. 5. Minimal intrahepatic biliary dilatation, nonspecific. Further characterization with nonemergent MRCP can be pursued as clinically warranted. 6. Enlarged bilateral external iliac lymph nodes and prominent para-aortic lymph nodes, similar to previous CT. Please note that all CT scans at this facility use dose modulation, iterative reconstruction, and/or weight-based dosing when appropriate to reduce radiation dose to as low as reasonably achievable. Dictated by Rio Carranza MD @ 04/19/2024 12:30:21 AM ECG Data Attestation: I personally reviewed and interpreted this ECG as follows: Prior ECG tracings: not available for review Interpretation: Normal sinus rhythm with rate 74 beats per minute, normal intervals, normal axis, no ST or T-wave abnormalities. Discharge Plan Discharge Clinical Impression: Gastroenteritis Pulmonary embolism Qualifiers: Pulmonary embolism type: unspecified Chronicity: unspecified Acute cor pulmonale presence: unspecified Qualified Code(s): I26.99 - Other pulmonary embolism without acute cor pulmonale Patient Disposition: Admitted As Observation Condition: Stable
[2024-04-18] MEDS: LACTATED RINGERS 1000 ML 1,000 ML IV (21:12)
[2024-04-18 21:15] LABS: Basophils Percent Auto 0.1 % (0.0-3.0); Eosinophils Percent Auto 1.2 % (0.0-7.0); Hematocrit 39.4 % (33.0-51.0); Hemoglobin* 12.7 gm/dL (12.0-16.0); Immature Granulocytes Pct Auto 0.3 %; Lymphocytes Percent Auto 9.8 % (20-44); Mean Corpuscular HGB Conc 32 gm/dL (32-36); Mean Corpuscular Hemoglobin 30 pg (26-34); Mean Corpuscular Volume 93 fL (80-100); Monocytes Percent Auto 6.7 % (0.0-11.0); Neutrophils Percent Auto 81.9 % (42.0-72.0); Platelet Count* 186 K/uL (140-440); RDW Coefficient of Variation % 13.3 % (11.5-15.5); Red Blood Count 4.22 m/uL (4.00-5.20); White Blood Count* 13.83 K/uL (4.50-11.00)
[2024-04-18 21:23] LABS: Creatinine, Point-of-Care* 1.3 mg/dl (0.6-1.3)
[2024-04-18 21:28] LABS: Chloride* 109 mmol/L (96-114); Potassium* 3.6 mmol/L (3.6-5.1); Sodium* 135 mmol/L (135-149)
[2024-04-18 21:30] LABS: Anion Gap 6 mEq/L (7-15); Aspartate Amino Transferase* 22 U/L (12-35); Bilirubin Total* 0.7 mg/dL (0.1-1.5); Carbon Dioxide* 20 mmol/L (20-32); Creatinine* 1.1 mg/dL (0.5-1.5); Estimated Glomerular Filt Rate 54 ml/min; Total Protein* 5.6 g/dL (6.0-8.3)
[2024-04-18 21:31] LABS: Alanine Aminotransferase* 17 U/L (4-35); Alkaline Phosphatase* 76 U/L (40-150); Blood Urea Nitrogen* 22 mg/dL (7-30); Calcium* 8.4 mg/dL (8.4-10.6); Glucose* 87 mg/dL (60-115)
[2024-04-18 21:33] LABS: Slide Review Reflex No
[2024-04-18 21:41] LABS: PCR FLU A Negative PCR FLU A (Negative); PCR FLU B Negative PCR FLU B (Negative); PCR RSV Negative PCR RSV (Negative); SARS PCR* Negative SARS-CoV-2 (Negative)
[2024-04-18 21:43] LABS: Troponin I* 0.03 ng/mL (0.01-0.04)
--- NOTE | 2024-04-18 22:08 | CRLHL7_ITS ---
For Patients: As a result of the Century Cures Act, medical imaging exams and procedure reports are released immediately into your electronic medical record. You may view this report before your referring provider. If you have questions, please contact your health care provider. INDICATION: Diffuse abdominal pain and diarrhea. TECHNIQUE: CT abdomen and pelvis acquired with 95 cc Omnipaque 370 IV contrast. COMPARISON: CT abdomen and pelvis 11/14/2020. FINDINGS: Lower chest: Please refer to separately dictated CTA of the chest for discussion of intrathoracic contents. Liver: Scattered probable hepatic cysts. Gallbladder and bile ducts: Minimal intrahepatic biliary dilatation. No gallstones. No pericholecystic fluid. Pancreas: Unremarkable. Spleen: Unremarkable. Adrenal glands: Unremarkable. Kidneys: Delayed left renal nephrogram. Left ureteral wall thickening is similar in appearance compared to previous CT. Nonobstructing left lower pole renal calculus measures 3 mm. No definite hydronephrosis or hydroureter. 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 GI tract: No bowel obstruction. Mild scattered colonic and small bowel wall thickening. Normal appendix. Vasculature: Atherosclerotic vascular calcifications. Vasculature grossly patent. Lymph nodes: Enlarged bilateral external iliac lymph nodes, similar to prior. Prominent left para-aortic lymph nodes, also similar to prior. Peritoneum/Abdominal Wall: Trace pelvic ascites. No pneumoperitoneum. Pelvis: Mild bladder wall thickening. No suspicious adnexal mass. Bones: No acute abnormality. IMPRESSION: 1. Mild scattered colonic and small bowel wall thickening may reflect a nonspecific infectious/inflammatory enterocolitis. 2. Delayed left renal nephrogram with prominent left ureteral wall thickening, findings which may be chronic, however clinical correlation is recommended to exclude ascending urinary tract infection. 3. Mild bladder wall thickening. Correlate for cystitis. 4. Nonobstructing bilateral renal calculi. No hydronephrosis or hydroureter. 5. Minimal intrahepatic biliary dilatation, nonspecific. Further characterization with nonemergent MRCP can be pursued as clinically warranted. 6. Enlarged bilateral external iliac lymph nodes and prominent para-aortic lymph nodes, similar to previous CT. Please note that all CT scans at this facility use dose modulation, iterative reconstruction, and/or weight-based dosing when appropriate to reduce radiation dose to as low as reasonably achievable. Dictated by Rio Carranza MD @ 04/19/2024 12:30:21 AM (Electronically Signed)
--- NOTE | 2024-04-18 22:08 | CRLHL7_ITS ---
For Patients: As a result of the 21st Century Cures Act, medical imaging exams and procedure reports are released immediately into your electronic medical record. You may view this report before your referring provider. If you have questions, please contact your health care provider. INDICATION: Pulmonary embolism (PE) suspected, history of ovarian cancer. Shortness of breath. TECHNIQUE: CTA chest PE was acquired with 95 cc Omnipaque 370 IV contrast. Multiplanar reformats were obtained, including axial MIP reconstructions. COMPARISON: None. FINDINGS: Heart and vasculature: Contrast opacification of the pulmonary arterial tree is adequate. Filling defects are noted within lobar and segmental branches of the right upper and middle lobes, compatible with pulmonary emboli. Filling defects also noted within segmental and subsegmental branches of the right lower lobe. Mild straightening of the interventricular septum and mild contrast reflux within the IVC may reflect some degree of right heart strain. No cardiomegaly or pericardial effusion. Main pulmonary artery is mildly dilated to 3.1 cm. Scattered atherosclerotic calcifications of the thoracic aorta and its major branches. No thoracic aortic aneurysm. Lungs and pleura: Small regions of tree-in-bud nodularity present within the right lower lobe. A right lower lobe pulmonary nodule measures 6 mm (series 5 image 148). A mildly spiculated right upper lobe pulmonary nodule measures 8 mm (image 36). Trace left pleural effusion. No pneumothorax. Lymph nodes/mediastinum: Scattered mildly prominent mediastinal lymph nodes, none of which meet size criteria for enlargement. Chest wall: No suspicious mass or fluid collection. Upper abdomen: Please refer to separately dictated CT of the abdomen/pelvis for discussion of intra-abdominal contents. Bones: No acute abnormality. IMPRESSION: 1. Pulmonary emboli involving the lobar and segmental branches of the right upper and middle lobes in addition to some segmental and subsegmental branches of the right lower lobe. Suggestion of mild right heart strain. 2. Small regions of tree-in-bud nodularity within the right lower lobe may reflect nonspecific infectious/inflammatory bronchiolitis. 3. Trace left pleural effusion. 4. Scattered pulmonary nodules, including a mildly spiculated right upper lobe pulmonary nodule measuring 8 mm. Given patient`s history, findings are concerning for metastatic disease. Recommend comparison with prior imaging, if available, to assess for interval change. 5. Mild dilatation of the main pulmonary artery may be seen in the setting of pulmonary hypertension. Above critical findings were discussed with Dr. Pearson via telephone on 04/19/2024 12:23 a.m. [employer] CHIEF. Please note that all CT scans at this facility use dose modulation, iterative reconstruction, and/or weight-based dosing when appropriate to reduce radiation dose to as low as reasonably achievable. Dictated by Rio Carranza MD @ 04/19/2024 12:23:49 AM (Electronically Signed)
[2024-04-18 23:19] LABS: Appearance Urine Clear (Clear); Bilirubin Urine 1+ (Negative); Blood Urine 2+ (Negative); Color Urine Yellow (Yellow); Glucose Urine Negative (Negative); Ketones Urine 4+ (Negative); Leukocyte Esterase Urine Trace (Negative); Nitrite Urine Negative (Negative); Protein Urine 1+ (Negative); Urobilinogen Urine 0.2 (0.2-1.0); pH Urine 5.5 (5.0-8.5)
[2024-04-18 23:20] LABS: RBC Urine 0-2 (0-2); WBC Urine 0-2 (0-5)
[2024-04-18 23:21] LABS: Bacteria Urine Few
[2024-04-19] VITALS (12 sets, daily range): BP systolic 139–169; BP diastolic 49–68; PULSE 57–80; RESP 14–22; TEMP 36.5–38.2; O2SAT 90–96; BMI 28.7
[2024-04-19 00:57] LABS: Hematocrit 39.1 % (33.0-51.0); Hemoglobin* 12.8 gm/dL (12.0-16.0); Mean Corpuscular HGB Conc 33 gm/dL (32-36); Mean Corpuscular Hemoglobin 30 pg (26-34); Mean Corpuscular Volume 93 fL (80-100); Platelet Count* 187 K/uL (140-440); Red Blood Count 4.22 m/uL (4.00-5.20); White Blood Count* 13.53 K/uL (4.50-11.00)
[2024-04-19 00:59] LABS: Slide Review Reflex No
[2024-04-19 01:14] LABS: Prothrombin Time 14.9 Seconds
[2024-04-19 01:15] LABS: Partial Thromboplastin Time* 27 Seconds (23-33)
[2024-04-19] MEDS: HEPARIN 5,000 UNIT/0.5 ML INJ 5400 UNIT IVP (01:49)
[2024-04-19] MEDS: HEPARIN 25,000 UNIT/500 ML BAG 24 UNIT IV (01:51)
--- NOTE | 2024-04-19 04:11 | W.PM.THH&P_ITS ---
Telehealth- H&P: HPI History of Present Illness Date Seen: 04/19/24 Chief complaint: vomiting Narrative: Aviva Hinojosa was seen as an interactive telehealth visit. Nursing staff has assisted with interview and physical exam. Aviva Hinojosa is a 73-year-old female with past medical history significant for hypothyroidism, COPD, Nicotine depdence, remote h/o ovarian ca, Gastric bypass, knee replacements presented to ED with c/o weakness since sunday. Patient reports she had kidney stone type pain on left abdomen but it resolved. Then she developed diarrhea, vomiting. NO abdominal pain. Does have cough and sob. NO chest pain. Lab work showed white count 13.8, hemoglobin 12.7, hematocrit 39.4, platelets 186, BMP showed sodium 135, potassium 3.6 chloride 109, bicarb 20, BUN 23, creatinine 1.1, glucose 87, calcium 8.4, magnesium 2.0, AST 23, ALT 17, total 0.03, UA showed protein 1+, ketones 4+, nitrite negative, leukocyte Estrace trace. Nasal swab was negative for SARS-CoV-2, influenza A, B, RSV. CT chest showed pulmonary emboli involving lobar and segmental branches of the right upper and middle lobes in addition to some segmental and subsegmental branches of the right lower lobe. Small regions of tree-in-bud nodularity within the right lower lobe may reflect nonspecific infectious/inflammatory bronchiolitis. Trace left pleural effusion. Scattered pulmonary nodules including 1 that is measuring 8 mm. Any significant for metastatic disease. Mild dilatation of the main pulmonary artery may be seen in the pulmonary hypertension. CT abdomen and pelvis showed mild scattered colonic and small bowel wall thickening may reflect a nonspecific infectious/inflammatory enterocolitis. Delayed left renal nephrogram with prominent left ureteral wall thickening, findings which may be chronic however clinical correlation is recommended to exclude ascending UTI. Mild bladder wall thickening. Correlate for cystitis. Nonobstructing bilateral renal calculi. No hydronephrosis or hydroureter. Minimal intrahepatic biliary dilation nonspecific. Pt has been started on heparin gtt in the ER. Pt is currently requiring 2L oxygen. [facility] Social History What is your current living situation?: I presently have a place to live Problems where you live: no known problems Problems where you live details: n/a In the past 12 months, utilities in danger of being shut off: no In past 12 months, lack of transportation kept you from medical appts, meetings, work, or getting things needed for daily living: no In the past 12 mos, have been you worried that your food would run out before you had money to buy more?: never true In the past 12 mos, the food you bought just didn't last and you didn't have money to buy more?: never true Smoking Status: Former smoker What tobacco products do you use: cigarettes Years smoked: 60 Smoking quit date/years: <= 15 years ago Nicotine containing products detail: quit Sunday How often do you have a drink containing alcohol: never AUDIT-C Alcohol total score: 0 Non-prescribed substance use: denies use Caffeine: Yes (coffee) How often does anyone, including family, friends and others, physically hurt you : never How often does anyone, including family, friends and others, insult or talk down to you: never How often does anyone, including family, friends and others, threaten you with harm: never How often does anyone, including family, friends and others, scream or curse at you: never service: No Meds Home Medications and Allergies Home Medications ?Medication ?Instructions ?Recorded ?Confirmed ?Type bupropion HCl 150 mg tablet,12 hr mg PO 04/18/24 History sustained-release hydroxyzine HCl 25 mg tablet 25 mg PO QPM PRN 04/18/24 04/18/24 History ipratropium 0.5 mg-albuterol 3 mg 1 inhalation Q6H PRN wheezing 04/18/24 History (2.5 mg base)/3 mL nebulization soln Allergies Allergy/AdvReac Type Severity Reaction Status Date / Time No Known Drug Allergies Allergy Verified 04/18/24 23:31 Exam Narrative Exam Narrative: Physical Exam General: Vital signs reviewed. Pt is alert and awake. In NAD. HEENT: PERLLA, EOMI, Tongue is midline. Mucous membranes moist. Neck: Supple, no adenopathy per nurse assisted exam. CVS: S1, S2, no murmers/rubs/gallops. Chest: CTAB, no rhales/rhonchi/wheezing Abd: soft, NT, ND, + BS in 4 quad. NO rebound/guarding/peritoneal signs per nurse assisted exam. Ext: No edema, no cyanosis Neuro: no focal deficits, Moving all extremities equally. Answering appropriately. Psych: Affect normal. Skin: no rash seen. Const Vital Signs, click to edit/add: Vital Signs - 24 hr 04/18/24 20:51 04/19/24 01:00 04/19/24 02:13 Temperature 99.6 F 98.2 F Pulse Rate [Pulse Oximeter] 77 79 Respiratory Rate 18 14 17 Blood Pressure [Left Upper Arm] 166/56 H 166/68 H Blood Pressure [Right Arm] 169/61 H Pulse Oximetry 93 90 91 Oxygen Delivery Method Room Air Nasal Cannula Oxygen Flow Rate 2 Hospitalist - H&P: Result Labs Labs: Short CBC 04/18/24 04/19/24 Range/Units 21:00 00:54 WBC 13.83 H 13.53 H (4.50-11.00) K/uL Hgb 12.7 12.8 (12.0-16.0) gm/dL Hct 39.4 39.1 (33.0-51.0) % Plt Count 186 187 (140-440) K/uL BMP 04/18/24 21:00 Sodium 135 Potassium 3.6 Chloride 109 Carbon Dioxide 20 BUN 22 Creatinine 1.1 Glucose 87 Calcium 8.4 Cardiac Enzymes 04/18/24 Range/Units 21:00 Troponin I 0.03 (0.01-0.04) ng/mL Liver Function 04/18/24 Range/Units 21:00 Total Bilirubin 0.7 (0.1-1.5) mg/dL AST 22 (12-35) U/L ALT 17 (4-35) U/L Alkaline Phosphatase 76 (40-150) U/L Albumin 3.0 L (3.3-5.0) g/dL Urine 04/18/24 Range/Units 23:16 Urine Color Yellow (Yellow) Urine Appearance Clear (Clear) Urine pH 5.5 (5.0-8.5) Ur Specific [place] 1.020 (1.000-1.030) Urine Protein 1+ A (Negative) Urine Glucose (UA) Negative (Negative) Assessment and Plan Assessment and plan (1) Gastroenteritis: Status: Acute (2) Pulmonary embolism: Status: Acute Plan Pt with h/o Smoking, COPD, hypothyroidism, presented to ED with c/o nausea/vomiting and diarrhea. Also c/o chest pain and sob. CTA chest positive for R sided PE with possible R heart strain, and possible pneumonia. L small pleural effusion. Plan - cont with heparin gtt - cont cardiac monitoring - switch to oral AC likely eliquis if tolerates po by am. # Lung Nodule - CTA chest showed 8 mm lung nodule concerning for malignancy. - Pt will need outpatient follow up with PUlmonary for follow up given she is high risk with h/o smoking. # Gastroenteritis - pt is presenting to ED with nausea/vomiting and diarrhea. - pt has not had a BM here in hospital. no stool sample collected. - she is noted to have mild leukocytosis, CT with finding of enteritis. no sbo. Plan - cont with IV hydration - follow up c diff toxin. - cont supportive care. # CT scan with findings of ascending UTI - UA with trace leuks. Pt reports she had significant left sided pain that has resolved. - Pt will be on ceftriaxone for both poss pneumonia and UTI. # h/o ovarian ca # h/o COPD # Nicotine dependence # Hypothyroidism - cont with home meds after reconciled. # DVT proph - pt will be on heparin gtt. Telehealth: Statement Statement Telehealth Visit: Today's History and Physical is provided via interactive telehealth by Frances Milton MD.? Patient is located at [facility].? Provider is located at [facility].? Nursing staff assisted with the patient's exam. The visit being done today meets criteria for a telehealth visit and the patient or patient?s parent/guardian is aware the visit is a telehealth visit. Camera Start Time: 03:46 Camera End Time: 05:30
[2024-04-19] MEDS: cefTRIAXone 2 GM in 0.9 % SODIUM CHLORIDE Mini-bag 100 ML IVPB (06:37)
[2024-04-19 07:59] LABS: Partial Thromboplastin Time* 58 Seconds (23-33)
--- NOTE | 2024-04-19 08:20 | PC.NURSE ---
Shift note ([id number]): Patient arrived from ED at 0158.?Pleasant, alert and oriented. Sleepy upon arrival and had trouble finding words at times during admission assessment. Ambulated to bathroom with standby assist. Allergy list updated from ?no known drug allergies? to allergies of Sulfa, Amoxicillin and Piroxicam per patient. [facility] Molder called [facility] and updated them. Per pharmacy ok to give ceftriaxone.?
[2024-04-19] MEDS: DOXYCYCLINE HYCLATE 100 MG PO ×2 (09:57→22:17)
[2024-04-19] MEDS: IPRAT-ALBUT 0.5-2.5 MG/3 ML NEB 1 NEB IH ×2 (11:33→17:52)
--- NOTE | 2024-04-19 11:50 | RESP.RT ---
Patient Complaint of SOB, BBS with inspiratory/expiratory musical wheezing, with diminished air movement. Nurse gave patient DuoNeb, post Tx wheezing improved, with greater air movement.
[2024-04-19 13:12] LABS: Partial Thromboplastin Time* 34 Seconds (23-33)
[2024-04-19] MEDS: ALBUTEROL SULFATE 2.5 MG/3 ML VIAL.NEB NEB ×2 (14:06→18:34)
[2024-04-19] MEDS: HEPARIN 5,000 UNIT/0.5 ML INJ 4400 UNIT IVP (14:20)
[2024-04-19 14:44] LABS: CDIFFEPI 027 PRESUMPTIVE NEGATIVE (Negative)
--- NOTE | 2024-04-19 15:34 | P.IMPN_ITS ---
Progress Note: A&P Assessment and plan (1) Acute hypoxemic respiratory failure: Problem details: - due to PE, COPD exacerbation - supplemental oxygen - nebs as below Status: Acute (2) Pulmonary embolism: Problem details: - history of ovarian cancer - pulmonary nodule suspicious for malignancy - current smoker (quit last Sunday) - mild right heart strain on CTA, obtain ECHO - on heparin drip, able to take p.o. now, switch to Eliquis this pm Status: Acute (3) COPD exacerbation: Problem details: - Start prednisone, continue ceftriaxone, doxycycline, start duonebs scheduled and albuterol nebs prn Status: Acute (4) Gastroenteritis: Problem details: - supportive cares - Cdiff pending Status: Acute (5) Pulmonary nodule: Problem details: 11/29/22 [facility] [place] [facility] 04/18/24 CTA: Scattered pulmonary nodules, including a mildly spiculated right upper lobe pulmonary nodule measuring 8 mm. Given patient`s history, findings are concerning for metastatic disease. Recommend comparison with prior imaging, if available, to assess for interval change. Status: Acute (6) CKD (chronic kidney disease): Problem details: - stage III - baseline creatinine 0.8 Status: Chronic (7) Weakness: Problem details: - PT and OT to evaluate Status: Acute Time Spent With Patient Total time spent: Today I spent 35 minutes seeing the patient, reviewing Expanse and EPIC n otes/diagnostics/labs, discussing the care plan with our care team that includes social work, PT/OT, pharmacy, RT, group home and documenting my impressions and plan in the medical record. [facility] [id number] Subjective Time Seen by Provider: 11:00 Date Seen: 04/19/24 Interval history: Aviva still feels very unwell. She complains that she is dyspneic and wheezy. Exam Const: Vital Signs, click to edit/add: Vital Signs - 24 hr 04/18/24 20:51 04/19/24 01:00 04/19/24 02:13 Temperature 99.6 F 98.2 F Pulse Rate Pulse Rate [Pulse Oximeter] 77 79 Respiratory Rate 18 14 17 Blood Pressure [Le ft Upper Arm] 166/56 H 166/68 H Blood Pressure [Ri ght Arm] 169/61 H Pulse Oximetry 93 90 91 Oxygen Delivery Me thod Room Air Nasal Cannula Oxygen Flow Rate 2 04/19/24 02:13 04/19/24 05:38 04/19/24 07:00 Temperature Pulse Rate 69 Pulse Rate [Pulse Oximeter] Respiratory Rate Blood Pressure [Le ft Upper Arm] Blood Pressure [Ri ght Arm] Pulse Oximetry 94 Oxygen Delivery Me thod Nasal Cannula Oxygen Flow Rate 2 04/19/24 11:49 Temperature Pulse Rate Pulse Rate [Pulse Oximeter] Respiratory Rate 22 Blood Pressure [Le ft Upper Arm] Blood Pressure [Ri ght Arm] Pulse Oximetry 96 Oxygen Delivery Me thod Nasal Cannula Oxygen Flow Rate 2 Labs Labs: Laboratory Results - last 24 hr 04/18/24 04/18/24 04/18/24 20:45 20:56 21:00 WBC 13.83 H RBC 4.22 Hgb 12.7 Hct 39.4 MCV 93 MCH 30 MCHC 32 RDW Coeff of Nubia 13.3 Plt Count 186 Neut % (Auto) 81.9 H Lymph % (Auto) 9.8 L [place] % (Auto) 6.7 Eos % (Auto) 1.2 Baso % (Auto) 0.1 Neut # (Auto) 11.30 H Lymph # (Auto) 1.40 [place] # (Auto) 0.90 Eos # (Auto) 0.20 Baso # (Auto) 0.00 Abs Immat Gran (auto) 0.00 Imm/Tot Granulo (auto) 0.3 INR APTT Sodium 135 Potassium 3.6 Chloride 109 Carbon Dioxide 20 Anion Gap 6 L BUN 22 Creatinine 1.1 Estimated Creat Clear 38.80 Estimated GFR 54 Glucose 87 Calcium 8.4 Magnesium 2.0 Total Bilirubin 0.7 AST 22 ALT 17 Alkaline Phosphatase 76 Troponin I 0.03 Total Protein 5.6 L Albumin 3.0 L Urine Color Urine Appearance Urine pH Ur Specific [place] Urine Protein Urine Glucose (UA) Urine Ketones Urine Blood Urine Nitrite Urine Bilirubin Urine Urobilinogen Ur Leukocyte Esterase Urine RBC Urine WBC Ur Squamous Epith Cells Urine Bacteria SARS-CoV-2 (PCR) Negative SARS-CoV-2 Influenza Type A (PCR) Negative PCR FLU A Influenza Type B (PCR) Negative PCR FLU B RSV (PCR) Negative PCR RSV POC Creatinine 1.3 04/18/24 04/19/24 04/19/24 23:16 00:54 06:45 WBC 13.53 H RBC 4.22 Hgb 12.8 Hct 39.1 MCV 93 MCH 30 MCHC 33 RDW Coeff of [place]ubia Plt Count 187 Neut % (Auto) Lymph % (Auto) [place] % (Auto) Eos % (Auto) Baso % (Auto) Neut # (Auto) Lymph # (Auto) [place] # (Auto) Eos # (Auto) Baso # (Auto) Abs Immat Gran (auto) Imm/Tot Granulo (auto) INR 1.10 APTT 27 58 H Sodium Potassium Chloride Carbon Dioxide Anion Gap BUN Creatinine Estimated Creat Clear Estimated GFR Glucose Calcium Magnesium Total Bilirubin AST ALT Alkaline Phosphatase Troponin I Total Protein Albumin Urine Color Yellow Urine Appearance Clear Urine pH 5.5 Ur Specific [place] 1.020 Urine Protein 1+ A Urine Glucose (UA) Negative Urine Ketones 4+ A Urine Blood 2+ A Urine Nitrite Negative Urine Bilirubin 1+ A Urine Urobilinogen 0.2 Ur Leukocyte Esterase Trace A Urine RBC 0-2 Urine WBC 0-2 Ur Squamous Epith Cells None Urine Bacteria Few A SARS-CoV-2 (PCR) Influenza Type A (PCR) Influenza Type B (PCR) RSV (PCR) POC Creatinine 04/19/24 12:46 WBC RBC Hgb Hct MCV MCH MCHC RDW Coeff of Nubia Plt Count Neut % (Auto) Lymph % (Auto) [place] % (Auto) Eos % (Auto) Baso % (Auto) Neut # (Auto) Lymph # (Auto) [place] # (Auto) Eos # (Auto) Baso # (Auto) Abs Immat Gran (auto) Imm/Tot Granulo (auto) INR APTT 34 H Sodium Potassium Chloride Carbon Dioxide Anion Gap BUN Creatinine Estimated Creat Clear Estimated GFR Glucose Calcium Magnesium Total Bilirubin AST ALT Alkaline Phosphatase Troponin I Total Protein Albumin Urine Color Urine Appearance Urine pH Ur Specific [place] Urine Protein Urine Glucose (UA) Urine Ketones Urine Blood Urine Nitrite Urine Bilirubin Urine Urobilinogen Ur Leukocyte Esterase Urine RBC Urine WBC Ur Squamous Epith Cells Urine Bacteria SARS-CoV-2 (PCR) Influenza Type A (PCR) Influenza Type B (PCR) RSV (PCR) POC Creatinine
[2024-04-19 17:19] LABS: C.Difficile POSITIVE (Negative)
--- NOTE | 2024-04-19 18:48 | W.PM.CROSSCO ---
Subjective Subjective Time Seen by Provider: 18:48 Date Seen: 04/19/24 Principal diagnosis: 73-year-old female admitted to the hospital with dyspnea Interval history: Patient admitted with dyspnea thought secondary to pulmonary emboli and COPD. Started on heparin, ceftriaxone and doxycycline and DuoNebs. This evening she was reporting feeling more dyspneic. She is at 93% on 1 L per nasal cannula with other vital signs being stable. She has also had diarrhea. C diff test came back positive today. Objective Objective Data Details: She is alert, anxious appearing but appears in no respiratory distress. Respirations without significant increase in respiratory rate or effort. Auscultation shows prolonged expiratory phase and relatively diffuse wheezing. Cardiovascular: S1, S2, regular rate and rhythm. Assessment and Plan Assessment and plan (1) Acute hypoxemic respiratory failure: Problem comment: - due to PE, COPD exacerbation - supplemental oxygen - nebs and prednisone Status: Acute (2) COPD exacerbation: Problem comment: - Start prednisone, continue ceftriaxone, doxycycline, start duonebs scheduled and albuterol nebs prn Status: Acute (3) Pulmonary embolism: Problem comment: - history of ovarian cancer - pulmonary nodule suspicious for malignancy - current smoker (quit last Sunday) - mild right heart strain on CTA, obtain ECHO - on heparin drip, able to take p.o. now, switch to Eliquis this pm Status: Acute (4) C. difficile enteritis: Problem comment: Oral vancomycin. Status: Acute (5) Anxiety: Problem comment: Cautious use of low-dose lorazepam tonight Status: Acute Total Time Spent Total Time Spent: Total time spent is 25 minutes in chart review, evaluation and management of C diff and dyspnea
[2024-04-19] MEDS: predniSONE 20 MG TABLET 60 MG PO (19:18)
[2024-04-19] MEDS: VANCOMYCIN 125 MG CAPSULE PO ×2 (19:18→22:17)
--- NOTE | 2024-04-19 19:51 | PC.NURSE ---
PATIENT SOB WITH EXERTION AND O2 SATS NOTED TO BE 87-88%RA AT REST AND AFTER EXERTION. PLACED ON 1L O2 PER NC. LUNG SOUNDS WHEEZY AND RESPIRATORY THERAPY CONSULTED WITH PATIENT. NEBS ORDERED PER MD AND ADMINISTERED SCHEDULED AND PRN PER EMAR. PRODUCTIVE COUGH WITH CREAMY YELLOW SPUTUM. PATIENT HAD 3 LOOSE CONTINENT AND INCONTINENT STOOLS AND SAMPLE SEND THIS AM WHICH WAS POSITIVE FOR CDIFF. VANCO STARTED. AT 1800, PATIENT CALLED FOR NURSING AND STATED I CAN'T BREATH. PRN ALBUTEROL NEB ADMINISTERED. DR. COLES TO ASSESS PATIENT. PREDNISONE AND VANCO PO ORDERED AND ADMINISTERED PER DR. COLES. AT 1800 PATIENT ALSO C/O HEADACHE. CHECKED TEMPERATURE AND WAS 98.0. TYLENOL ADMINISTERED FOR HEADACHE. WHEN RETURNING TO ROOM, PATIENT NOTED TO HAVE BEADS OF SWEAT TO NOSE AND STATED SHE FELT HOT. TEMP RECHECKED AND WAS 100.7. COOL RAG APPLIED AND PASSED ON TO ONCOMING NURSE.
[2024-04-19 20:25] LABS: Partial Thromboplastin Time* 65 Seconds (23-33)
[2024-04-19] MEDS: APIXABAN 5 MG TABLET 10 MG PO (22:17)
[2024-04-19] MEDS: LORazepam 0.5 MG TABLET PO (22:17)
[2024-04-19] MEDS: SODIUM CHLORIDE 0.9 % (FLUSH) 10 ML SYRINGE 5 ML IVF (22:18)
[2024-04-20] VITALS (8 sets, daily range): BP systolic 154–181; BP diastolic 58–67; PULSE 47–67; RESP 16–20; TEMP 36.3–36.6; O2SAT 91–95
[2024-04-20] MEDS: IPRAT-ALBUT 0.5-2.5 MG/3 ML NEB 1 NEB IH ×5 (01:13→23:27)
[2024-04-20] MEDS: cefTRIAXone 2 GM in 0.9 % SODIUM CHLORIDE Mini-bag 100 ML IVPB (06:10)
--- NOTE | 2024-04-20 06:59 | PC.NURSE ---
Shift note ([id number]): Patient pleasant, alert and oriented. Ambulated to bathroom with standby assist. C/O stomach discomfort ?like diarrhea? discomfort. No complaints of chest discomfort.?Heparin drip discontinued per Dr Hutchison. Eliquis started at HS. One loose?stool this shift. Bradycardic when sleeping. O2 sats 93% on 1 LPM. Removed O2 at that time. O2 sats currently 92% on room air.?
[2024-04-20 07:42] LABS: Hematocrit 38.9 % (33.0-51.0); Hemoglobin* 12.8 gm/dL (12.0-16.0); Mean Corpuscular HGB Conc 33 gm/dL (32-36); Mean Corpuscular Hemoglobin 30 pg (26-34); Mean Corpuscular Volume 91 fL (80-100); Platelet Count* 162 K/uL (140-440); Red Blood Count 4.27 m/uL (4.00-5.20); White Blood Count* 5.58 K/uL (4.50-11.00)
[2024-04-20 07:57] LABS: INR 1.23 (0.91-1.10); Prothrombin Time 16.3 Seconds
[2024-04-20 08:02] LABS: Slide Review Reflex No
[2024-04-20] MEDS: DOXYCYCLINE HYCLATE 100 MG PO ×2 (09:16→20:38)
[2024-04-20] MEDS: ALBUTEROL SULFATE 2.5 MG/3 ML VIAL.NEB NEB (09:16)
[2024-04-20] MEDS: APIXABAN 5 MG TABLET 10 MG PO ×2 (09:17→20:38)
[2024-04-20] MEDS: predniSONE 20 MG TABLET 40 MG PO (09:17)
[2024-04-20] MEDS: SODIUM CHLORIDE 0.9 % (FLUSH) 10 ML SYRINGE 5 ML IVF ×2 (09:17→23:27)
[2024-04-20] MEDS: VANCOMYCIN 125 MG CAPSULE PO ×4 (09:17→20:40)
[2024-04-20] MEDS: ACETAMINOPHEN 325 MG TABLET 650 MG PO (16:35)
--- NOTE | 2024-04-20 18:35 | PC.NURSE ---
PATIENT MORE ALERT TODAY. STILL REPORTS DECREASED APPETITE AND STATES MULTIPLE FOOD ITEMS DO NOT TASTE RIGHT. PATIENT WAS ABLE TO EAT ESTRELLA CRACKERS, PREMIER PROTEIN, JELLO AND CRANBERRY JUICE. DENIED NAUSEA BUT HAD 1 LOOSE STOOL TODAY. UP WITH SBA IN ROOM AND TOLERATING ACTIVITY WELL. PATIENT ABLE TO WASH UP THIS AM AT SINK AND SAT IN RECLINER FOR AN HOUR. PATIENT DID REPORT HEADACHE AT 1700, THAT WAS RESOLVED WITH TYLENOL. CONTINUES WITH SOB WITH EXERTION BUT REMAINS ON ROOM AIR WITH OXYGEN SATURATION 91-95%. AFEBRILE.
--- NOTE | 2024-04-20 18:51 | PM.IMPN1 ---
Progress Note: A&P Assessment and plan (1) C. difficile enteritis: Problem details: Continue oral vancomycin. Status: Acute (2) Acute hypoxemic respiratory failure: Problem details: - due to PE, COPD exacerbation - oxygen needs have improved, no longer on oxygen - continue nebs and prednisone Status: Acute (3) Pulmonary embolism: Problem details: - history of ovarian cancer - pulmonary nodule suspicious for malignancy - current smoker (quit last Sunday) - mild right heart strain on CTA, obtain ECHO - transitioned to Eliquis yesterday evening Status: Acute (4) COPD exacerbation: Problem details: -improving, continue prednisone, continue ceftriaxone, doxycycline, duonebs scheduled and albuterol nebs prn Status: Acute (5) Pulmonary nodule: Problem details: 11/29/22 Ref[facility] to [facility] [place] [facility] Lost to follow-up due to patient's fear of anesthesia 04/18/24 CTA: Scattered pulmonary nodules, including a mildly spiculated right upper lobe pulmonary nodule measuring 8 mm. Given patient`s history, findings are concerning for metastatic disease. Recommend comparison with prior imaging, if available, to assess for interval change. - 04/20 Patient agreeable to outpatient workup Status: Acute (6) CKD (chronic kidney disease): Problem details: - stage III - baseline creatinine 0.8 Status: Chronic (7) Weakness: Problem details: - PT and OT evaluated, patient independent Status: Acute Time Spent With Patient Total time spent: Today I spent 40 minutes seeing the patient, reviewing Expanse and EPIC notes/diagnostics/labs, discussing the care plan with our care team that includes social work, PT/OT, pharmacy, RT, intermediate and documenting my impressions and plan in the medical record. Subjective Time Seen by Provider: 13:33 Date Seen: 04/20/24 Interval history: Aviva feels better overall, but is quite tearful. She says she feels very depressed about feeling so sick for so long (since Sunday). She told me that yesterday felt like it was many days and she is having trouble believing it was only one day that she has been in the hospital. She notes improved breathing, but still poor appetite. Food tastes funny. Discussed PE, pulmonary nodule, possible metastatic disease, risk for lung cancer, tobacco use, COPD, history of ovarian cancer, weakness, acute hypoxemic respiratory failure, C diff, and antibiotics. She noted that she did not follow-up in 2022 on the pulmonary nodule, because they wanted to put her to sleep to biopsy it via bronchoscopy. She did not want to be intubated or put under anesthesia at the time, but now she tells me that she supposes she has to in order to get this taking care of. Exam Narrative: Exam Narrative: General: Very tearful at 1st, after 15 minutes, patient calmed down and took things in stride. Awake, alert, oriented x3. No pallor. No jaundice. Oropharynx: Clear. Mucous membranes moist. Cardiovascular: Regular rate and rhythm. No murmurs, gallops, or rubs. Respiratory: Clear to auscultation bilaterally. No wheezes or crackles. Abdomen: Bowel sounds hyperactive. Borborygmi present. Soft, mildly distended, mild diffuse tenderness, no rebound tenderness or guarding. Extremities: No lower extremity edema. Const: Vital Signs, click to edit/add: Vital Signs - 24 hr 04/19/24 19:23 04/19/24 20:08 04/19/24 22:21 Temperature 100.7 F H 98.0 F 97.7 F Pulse Rate Pulse Rate [Pulse Oximeter] 72 57 L Respiratory Rate 16 16 Blood Pressure [Ri ght Arm] 147/65 H 161/66 H Pulse Oximetry 93 92 Oxygen Delivery Me thod Nasal Cannula Oxygen Flow Rate 1 1 04/19/24 23:00 04/20/24 03:00 04/20/24 04:45 Temperature Pulse Rate 59 L Pulse Rate [Pulse Oximeter] 47 L Respiratory Rate 16 Blood Pressure [Ri ght Arm] Pulse Oximetry 91 93 Oxygen Delivery Me thod Room Air Oxygen Flow Rate 04/20/24 07:00 04/20/24 07:45 04/20/24 07:45 Temperature 97.9 F Pulse Rate 48 L Pulse Rate [Pulse Oximeter] 56 L 56 L Respiratory Rate 20 16 Blood Pressure [Ri ght Arm] 171/58 H Pulse Oximetry 94 Oxygen Delivery Me thod Room Air Oxygen Flow Rate 04/20/24 11:00 04/20/24 15:00 04/20/24 15:00 Temperature 98 F Pulse Rate 58 L Pulse Rate [Pulse Oximeter] 67 58 L Respiratory Rate 16 16 Blood Pressure [Ri ght Arm] 180/64 H Pulse Oximetry 94 Oxygen Delivery Me thod Room Air Oxygen Flow Rate 04/20/24 15:00 Temperature 98 F Pulse Rate Pulse Rate [Pulse Oximeter] 58 L Respiratory Rate 16 Blood Pressure [Ri ght Arm] 181/67 H Pulse Oximetry 95 Oxygen Delivery Me thod Room Air Oxygen Flow Rate Labs Labs: Laboratory Results - last 24 hr 04/19/24 04/20/24 19:56 07:32 WBC 5.58 RBC 4.27 Hgb 12.8 Hct 38.9 MCV 91 MCH 30 MCHC 33 Plt Count 162 INR 1.23 H APTT 65 H
[2024-04-20] MEDS: LORazepam 0.5 MG TABLET PO (20:37)
[2024-04-21] VITALS (10 sets, daily range): BP systolic 155–180; BP diastolic 62–76; PULSE 50–63; RESP 16; TEMP 36.5–37.2; O2SAT 91–96; BMI 27.9
[2024-04-21] MEDS: IPRAT-ALBUT 0.5-2.5 MG/3 ML NEB 1 NEB IH ×3 (06:09→17:30)
[2024-04-21] MEDS: cefTRIAXone 2 GM in 0.9 % SODIUM CHLORIDE Mini-bag 100 ML IVPB (06:10)
[2024-04-21 07:03] LABS: Chloride* 107 mmol/L (96-114); Potassium* 3.5 mmol/L (3.6-5.1); Sodium* 139 mmol/L (135-149)
[2024-04-21 07:06] LABS: Anion Gap 5 mEq/L (7-15); Blood Urea Nitrogen* 14 mg/dL (7-30); Carbon Dioxide* 27 mmol/L (20-32); Creatinine* 0.9 mg/dL (0.5-1.5); Est. Creatinine Clearance* 42.68; Estimated Glomerular Filt Rate 68 ml/min; Glucose* 90 mg/dL (60-115)
--- NOTE | 2024-04-21 07:41 | PC.NURSE ---
Shift note ([id number]): Patient pleasant, alert and oriented. Standby assist for ambulation. Denied discomfort.?Continues to have loose?stools. O2 sats 92-96% on R/A.?
[2024-04-21] MEDS: predniSONE 20 MG TABLET 40 MG PO (07:44)
[2024-04-21] MEDS: DOXYCYCLINE HYCLATE 100 MG PO (09:08)
[2024-04-21] MEDS: VANCOMYCIN 125 MG CAPSULE PO ×4 (09:08→21:20)
[2024-04-21] MEDS: APIXABAN 5 MG TABLET 10 MG PO ×2 (09:08→21:19)
[2024-04-21] MEDS: ALBUTEROL SULFATE 2.5 MG/3 ML VIAL.NEB NEB (09:18)
[2024-04-21] MEDS: LACTOBACILLUS ACIDOPHILUS 1 TABLET 2 TAB PO ×2 (11:29→17:30)
[2024-04-21] MEDS: ACETAMINOPHEN 325 MG TABLET 650 MG PO (11:29)
[2024-04-21] MEDS: SODIUM CHLORIDE 0.9 % (FLUSH) 10 ML SYRINGE 5 ML IVF ×2 (12:00→21:20)
--- NOTE | 2024-04-21 14:36 | PC.NURSE ---
73 year old female who comes from home with . Alert and oriented. VS stable with the exception of elevated blood pressures. Noted wheezing lung sounds in upper and lower lobes. On room air.. IV in right AC, patent and intact. RN encouraged breathing exercises with aerobica. On Telemetry. PRN Acetaminophen given at 1130 for c/o THAPA and was effective. PRN albuterol neb given at 0920 for c/o wheezing. x2 incontinent loose stools. Loose stools are decreasing. Ind in room. Bruising noted on bilateral arms from blood draws and being on a blood thinner medication.
--- NOTE | 2024-04-21 16:24 | P.IMPN_ITS ---
Progress Note: A&P Assessment and plan (1) C. difficile enteritis: Problem details: Continue oral vancomycin. Add lactobacillus as a probiotic Status: Acute (2) Acute hypoxemic respiratory failure: Problem details: - due to PE, COPD exacerbation - oxygen needs have improved, no longer on oxygen - continue nebs and prednisone Status: Resolved (3) Pulmonary embolism: Problem details: - history of ovarian cancer - pulmonary nodule suspicious for malignancy - current smoker (quit last Sunday) - mild right heart strain on CTA, echo okay - transitioned to Eliquis 04/19 Status: Acute (4) COPD exacerbation: Problem details: -improving, continue prednisone burst for 4 days total, continue ceftriaxone, doxycycline, duonebs scheduled and albuterol nebs prn Status: Acute (5) Pulmonary nodule: Problem details: 11/29/22 Referred to [facility] by [facility] [place] Results Team. Lost to follow-up due to patient's fear of anesthesia 04/18/24 CTA: Scattered pulmonary nodules, including a mildly spiculated right upper lobe pulmonary nodule measuring 8 mm. Given patient`s history, findings ar e concerning for metastatic disease. Recommend comparison with prior imaging, if available, to assess for interval change. - 04/20 Patient agreeable to outpatient workup Status: Acute (6) CKD (chronic kidney disease): Problem details: - stage III - baseline creatinine 0.8 Status: Chronic (7) Weakness: Problem details: - PT and OT evaluated, patient independent Status: Acute Time Spent With Patient Total time spent: Today I spent 35 minute seeing the patient, reviewing Expanse and EPIC notes/diagnostics/labs, discussing the care plan with our care team that includes social work, PT/OT, pharmacy, RT, shelter and documenting my impressions and plan in the medical record. Subjective Time Seen by Provider: 11:07 Date Seen: 04/21/24 Interval history: Aviva continues to have 5 BMs a day. She refuses to eat yogurt, but is agreeable to probiotics. She notes her is visiting later today. She is tearful about feeling sick for so long. Exam Narrative: Exam Narrative: General: A bit tearful today. Awake, alert, oriented x3. No pallor. No j aundice. Oropharynx: Clear. Mucous membranes moist. Cardiovascular: Regular rate and rhythm. No murmurs, gallops, or rubs. Respiratory: Clear to auscultation bilaterally. No wheezes or crackles. Abdomen: Bowel sounds hyperactive. Soft, mildly distended, nontender Extremities: No lower extremity edema. Const: Vital Signs, click to edit/add: Vital Signs - 24 hr 04/20/24 19:00 04/20/24 23:00 04/21/24 02:48 Temperature 97.6 F 97.4 F L Pulse Rate 60 Pulse Rate [Pulse Oximeter] 51 L 60 Respiratory Rate 16 16 Blood Pressure [Ri ght Arm] 170/59 H 154/64 H Pulse Oximetry 92 94 Oxygen Delivery Me thod Room Air Room Air 04/21/24 03:00 04/21/24 05:00 04/21/24 07:00 Temperature 97.7 F Pulse Rate Pulse Rate [Pulse Oximeter] 50 L 50 L Respiratory Rate 16 16 Blood Pressure [Ri ght Arm] 180/76 H Pulse Oximetry 95 96 Oxygen Delivery Wa thod Room Air 04/21/24 07:00 04/21/24 07:00 04/21/24 11:00 Temperature 97.8 F 97.8 F Pulse Rate 60 Pulse Rate [Pulse Oximeter] 50 L 61 Respiratory Rate 16 16 Blood Pressure [Ri ght Arm] 179/62 H 176/74 H Pulse Oximetry 96 94 Oxygen Delivery Wa thod Room Air Room Air 04/21/24 15:29 04/21/24 16:03 Temperature 97.7 F Pulse Rate 61 Pulse Rate [Pulse Oximeter] 58 L Respiratory Rate 16 Blood Pressure [Ri ght Arm] 169/66 H Pulse Oximetry 95 Oxygen Delivery Wa thod Room Air Labs Labs: Laboratory Results - last 24 hr 04/21/24 06:29 Sodium 139 Potassium 3.5 L Chloride 107 Carbon Dioxide 27 Anion Gap 5 L BUN 14 Creatinine 0.9 Estimated Creat Clear 42.68 Estimated GFR 68 Glucose 90 Calcium 9.0
--- NOTE | 2024-04-21 16:53 | PC.NURSE ---
Notified MD that patient has had sustained high systolic blood pressures. MD was aware of this and did not want to treat at this time. Notified MD that patient had a headache earlier today and does have some visual disturbances and states I just can't focus on the TV. It is blurry. No new orders at this time.
[2024-04-21] MEDS: POTASSIUM BICARB 25 MEQ EFFERVESCENT TAB PO (17:30)
--- NOTE | 2024-04-21 18:21 | PC.NURSE ---
End of shift report: Patient's stools have slowed down. None on this shift reported. Patient is tolerating a regular diet. Feels her appetite isn't back to normal yet but better. Patient is on room air. BP is elevated and MD is aware. Had a headache and some vision changes today and MD is aware. Bowel sounds active. Denies shortness of breath but does have some wheezing and the nebulizer helped her. Has been getting up and ambulating in room independently. Refused to sit in chair this evening. Educated on risks of aspiration with eating in bed, but patient continued to want to stay in bed. Patient did receive a bed bath and gown change this evening. Telemetry shows NSR with sinus arrhythmia at times. Patient plans to go home once medically ready.
[2024-04-21] MEDS: LORazepam 0.5 MG TABLET PO (21:19)
[2024-04-22 03:00] VITALS: BP 133/69; PULSE 53; RESP 16; TEMP 37.3; O2SAT 93
[2024-04-22 05:00] VITALS: O2SAT 93
[2024-04-22 06:30] LABS: Basophils Absolute Auto 0.01 K/uL (0.00-0.30); Basophils Percent Auto 0.1 % (0.0-3.0); Hematocrit 38.1 % (33.0-51.0); Hemoglobin* 12.5 gm/dL (12.0-16.0); Immature Granulocytes Abs Auto 0.05 K/uL (0.00-0.30); Immature Granulocytes Pct Auto 0.5 %; Lymphocytes Absolute Auto 2.54 K/uL (0.90-2.90); Lymphocytes Percent Auto 26.5 % (20-44); Mean Corpuscular HGB Conc 33 gm/dL (32-36); Mean Corpuscular Hemoglobin 30 pg (26-34); Mean Corpuscular Volume 92 fL (80-100); Neutrophils Absolute Auto 5.83 K/uL (1.7-7.0); Neutrophils Percent Auto 60.9 % (42.0-72.0); Platelet Count* 206 K/uL (140-440); RDW Coefficient of Variation % 13.1 % (11.5-15.5); Red Blood Count 4.15 m/uL (4.00-5.20); White Blood Count* 9.58 K/uL (4.50-11.00)
[2024-04-22 06:55] LABS: Albumin* 2.8 g/dL (3.3-5.0); Chloride* 109 mmol/L (96-114); Potassium* 3.5 mmol/L (3.6-5.1); Sodium* 139 mmol/L (135-149)
[2024-04-22 06:57] LABS: Creatinine* 0.9 mg/dL (0.5-1.5); Est. Creatinine Clearance* 42.68; Estimated Glomerular Filt Rate 68 ml/min
[2024-04-22 06:58] LABS: Alanine Aminotransferase* 16 U/L (4-35); Alkaline Phosphatase* 62 U/L (40-150); Anion Gap 2 mEq/L (7-15); Aspartate Amino Transferase* 18 U/L (12-35); Bilirubin Direct* 0.3 mg/dL (0.0-0.5); Bilirubin Total* 0.3 mg/dL (0.1-1.5); Blood Urea Nitrogen* 16 mg/dL (7-30); Calcium* 8.6 mg/dL (8.4-10.6); Carbon Dioxide* 28 mmol/L (20-32); Glucose* 88 mg/dL (60-115); Lipase* 65 U/L (23-300); Total Protein* 5.3 g/dL (6.0-8.3)
[2024-04-22 07:06] LABS: Slide Review Reflex No
[2024-04-22 07:13] LABS: Troponin I* < 0.01 ng/mL (0.01-0.04)
--- NOTE | 2024-04-22 07:25 | PC.NURSE ---
End of shift [id number]: Pt AxOx4, cooperative, and pleasant. Pt reported headache and stomachache present upon initial assessment. CMS intact. Charge nurse made aware of headache and high BP. Pt refused PRN Tylenol. Headache relieved with rest. Pt requested PRN Lorazepam @ HS. Pt slept for a majority of the shift. Pt indep in room. Continent of the bladder. Held scheduled neb to allow patient to sleep. Pt appears resting with call light in reach.
[2024-04-22] MEDS: IPRAT-ALBUT 0.5-2.5 MG/3 ML NEB 1 NEB IH (07:41)
[2024-04-22 08:21] VITALS: PULSE 58
[2024-04-22 08:50] VITALS: BP 174/68; PULSE 64; RESP 18; TEMP 36.5; O2SAT 92
[2024-04-22] MEDS: predniSONE 20 MG TABLET 40 MG PO (08:54)
[2024-04-22] MEDS: LACTOBACILLUS ACIDOPHILUS 1 TABLET 2 TAB PO ×2 (08:54→13:02)
[2024-04-22] MEDS: POTASSIUM BICARB 25 MEQ EFFERVESCENT TAB PO (08:54)
[2024-04-22] MEDS: SODIUM CHLORIDE 0.9 % (FLUSH) 10 ML SYRINGE 5 ML IVF (08:55)
[2024-04-22] MEDS: APIXABAN 5 MG TABLET 10 MG PO (08:55)
[2024-04-22] MEDS: VANCOMYCIN 125 MG CAPSULE PO ×2 (08:55→13:02)
--- NOTE | 2024-04-22 11:55 | PM.DS1 ---
DS: Providers Provider Time Seen by Provider: 09:52 Date Seen: 04/22/24 Date of admission: 04/19/24 17:08 Primary care physician: Not a Local Provider Admitting Clinician: Frances Milton MD Consults: 04/19/24 15:40 Consult to Occupational Therapy [CONS] Routine Comment: Reason(s) for OT Consult:: Evaluate and Treat Any Restrictions?:: No Restrictions Consult to Physical Therapy [CONS] Routine Comment: Reason(s) for PT Consult:: Evaluate and Treat Any Restrictions?:: No Restrictions Attending Physician on discharge: Bernadette Iglesias MD Date of Discharge: 04/22/24 DS: Diagnosis Discharge Diagnosis (1) C. difficile enteritis: Status: Acute Problem details: Continue oral vancomycin. Added lactobacillus as a probiotic BMs decreasing in frequency. Able to stay hydrated with po fluids. D/c home. (2) Acute hypoxemic respiratory failure: Status: Resolved Problem details: - due to PE, COPD exacerbation - oxygen needs have improved, no longer on oxygen - continue nebs and prednisone (3) Pulmonary embolism: Status: Acute Problem details: - history of ovarian cancer - pulmonary nodule suspicious for malignancy - current smoker (quit last Sunday) - mild right heart strain on CTA, echo okay - transitioned to Eliquis 04/19 (4) COPD exacerbation: Status: Acute Problem details: -improving, continue prednisone burst for 4 days total, discontinued ceftriaxone, doxycycline due to cdiff, patient has no fever or leukocytosis; cont duonebs scheduled and albuterol nebs prn (5) Pulmonary nodule: Status: Acute Problem details: 11/29/22 Ref[facility] to [facility]. Lost to follow-up due to patient's fear of anesthesia 04/18/24 CTA: Scattered pulmonary nodules, including a mildly spiculated right upper lobe pulmonary nodule measuring 8 mm. Given patient`s history, findings are concerning for metastatic disease. Recommend comparison with prior imaging, if available, to assess for interval change. - 04/20 Patient agreeable to outpatient workup (6) CKD (chronic kidney disease): Status: Chronic Problem details: - stage III - baseline creatinine 0.8, stable at 0.9 (7) Weakness: Status: Resolved Problem details: - PT and OT evaluated, patient independent (8) Anxiety: Status: Acute Problem details: Cautious use of low-dose lorazepam in hospital only (9) Tobacco dependence: Status: Acute Problem details: - last cigarette was Sunday. Strongly desires to quit. Had used Wellbutrin in the past. Chose not to start this now due to acute illness. Discussed changing routines, habits and anticipating triggers. Also discussed pharmacological options. Will prescribe nicotine gum for d/c. F/u with PCP. (10) Hypokalemia due to excessive gastrointestinal loss of potassium: Status: Acute Problem details: - secondary to C diff. Orally replaced. (11) Elevated blood-pressure reading, without diagnosis of hypertension: Status: Acute Problem details: - Elevated blood pressures, borderline cardiac wall thickening on ECHO, suspect HTN, f/u with PCP for further evaluation (12) Urinary tract infection due to Proteus: Status: Acute Problem details: 04/18/24 Proteus mirabilis Ur [place] Count >100,000 CFU/ml P mirabili ANNE RX --------- --- Ampicillin <=2 S Ampicillin/Sulbactam <=2 S Cefazolin <=4 S Cefepime <=1 S Cefoxitin <=4 S Ceftazidime <=1 S Ceftriaxone <=1 S Ciprofloxacin 2 R Ertapenem <=0.5 S Gentamicin <=1 S Imipenem 1 S Nitrofurantoin 256 R Tobramycin <=1 S Trimethoprim/Sulfamethoxazole 160 R Piperacillin/Tazobactam <=4 S - Had 3 days of ceftriaxone, to which it is sensitive. She has C diff. This is resistant to cipro, nitrofurantoin and Bactrim. She has an allergy to amoxicillin. I am going to stop antibiotics for UTI and have her get test of cure with PCP next week. DS: Summary Hospital Course Hospital Course: Aviva Ocampo was seen as an interactive telehealth visit. Nursing staff has assisted with interview and physical exam. Aviva Ocampo is a 73-year-old female with past medical history significant for hypothyroidism, COPD, Nicotine depdence, remote h/o ovarian ca, Gastric bypass, knee replacements presented to ED with c/o weakness since sunday. Patient reports she had kidney stone type pain on left abdomen but it resolved. Then she developed diarrhea, vomiting. NO abdominal pain. Does have cough and sob. NO chest pain. Lab work showed white count 13.8, hemoglobin 12.7, hematocrit 39.4, platelets 186, BMP showed sodium 135, potassium 3.6 chloride 109, bicarb 20, BUN 23, creatinine 1.1, glucose 87, calcium 8.4, magnesium 2.0, AST 23, ALT 17, total 0.03, UA showed protein 1+, ketones 4+, nitrite negative, leukocyte Estrace trace. Nasal swab was negative for SARS-CoV-2, influenza A, B, RSV. CT chest showed pulmonary emboli involving lobar and segmental branches of the right upper and middle lobes in addition to some segmental and subsegmental branches of the right lower lobe. Small regions of tree-in-bud nodularity within the right lower lobe may reflect nonspecific infectious/inflammatory bronchiolitis. Trace left pleural effusion. Scattered pulmonary nodules including 1 that is measuring 8 mm. Any significant for metastatic disease. Mild dilatation of the main pulmonary artery may be seen in the pulmonary hypertension. CT abdomen and pelvis showed mild scattered colonic and small bowel wall thickening may reflect a nonspecific infectious/inflammatory enterocolitis. Delayed left renal nephrogram with prominent left ureteral wall thickening, findings which may be chronic however clinical correlation is recommended to exclude ascending UTI. Mild bladder wall thickening. Correlate for cystitis. Nonobstructing bilateral renal calculi. No hydronephrosis or hydroureter. Minimal intrahepatic biliary dilation nonspecific. Pt has been started on heparin gtt in the ER. Pt is currently requiring 2L oxygen. 04/19 patient had acute hypoxemic resp falure due to PE and COPD exacerbation. This improved with prednisone and nebs. C diff positive for which she was started on po vancomycin. 04/20 resp failure resolved. Many stools. Tearful, anxious. 04/21 elevated BPs. C/o many stools. 04/22 fewer stools, resp status improved/stable, tolerating PO. D/c home. Please see diagnoses above for more details NOTES TO PCP: - PE - this is patient's second PE. I am concerned about the possibility of malignancy given CT chest findings. I asked her to call [facility] to see if they could get her in for lung nodule biopsy, which she had previously declined due to need for anesthesia, but is agreeable to do so now. Please help facilitate if she needs a referral. 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 - elevated blood pressures - I suspect she has hypertension, as I mentioned above, please evaluate blood pressure and consider adding an antihypertensive, if indicated. - Also please see diagnoses above. Time Spent with Patient Time attestation: Total time spent providing and/or coordinating discharge services: Today I spent 40 minutes seeing the patient, reviewing Expanse and EPIC notes/diagnostics/labs, discussing the care plan with our care team that includes social work, PT/OT, pharmacy, RT, nursing home and documenting my impressions and plan in the medical record. Smoking/Tobacco 28918 >10 mins. I went over the clinical stigmata of chronic tobacco use on the body. I explained the effect on the vasculature, lungs, heart, skin. I recommended complete abstinence from tobacco products and instructed on programs available at discharge from acute care. Exam Narrative: Exam Narrative: General: No acute distress. Awake, alert, oriented x3. No pallor. No jaundice. Oropharynx: Clear. Mucous membranes moist. Cardiovascular: Regular rate and rhythm. No murmurs, gallops, or rubs. Respiratory: Clear to auscultation bilaterally. No wheezes or crackles. Abdomen: Bowel sounds present, normoactive. Soft, mildly distended, nontender Const: Vital Signs, click to edit/add: Vital Signs - 24 hr 04/21/24 15:29 04/21/24 16:03 04/21/24 19:00 Temperature 97.7 F 98.8 F Pulse Rate 61 Pulse Rate [Pulse Oximeter] 58 L 63 Respiratory Rate 16 16 Blood Pressure [Le ft Arm] Blood Pressure [Ri ght Arm] 169/66 H 164/70 H Pulse Oximetry 95 92 Oxygen Delivery Me thod Room Air Room Air 04/21/24 22:32 04/21/24 23:00 04/22/24 03:00 Temperature 99 F 99.1 F Pulse Rate 55 L Pulse Rate [Pulse Oximeter] 54 L 53 L Respiratory Rate 16 16 Blood Pressure [Le ft Arm] 133/69 Blood Pressure [Ri ght Arm] 155/62 H Pulse Oximetry 91 93 Oxygen Delivery Me thod Room Air Room Air 04/22/24 05:00 04/22/24 08:21 04/22/24 08:50 Temperature 97.7 F Pulse Rate 58 L Pulse Rate [Pulse Oximeter] 64 Respiratory Rate 18 Blood Pressure [Le ft Arm] 174/68 H Blood Pressure [Ri ght Arm] Pulse Oximetry 93 92 Oxygen Delivery Me thod Room Air DS: Data Data Completed and Pending Completed studies during hospitalization: 04/22/24 TSH 6.89 (H) 04/18/2024 EKG: Normal sinus rhythm, possible ectopic atrial rhythm, 74 beats per minute. 04/20/2024 echocardiogram normal LV size, borderline wall thickness, normal global systolic function with an estimated EF of 55-60%. Right ventricular cavity size is normal, global systolic RV function is normal. Aortic valve is trileaflet, no stenosis and mild to moderate regurgitation. Ordering Physician: Jadon Pearson D.O. Date of Service: 04/18/24 Procedure(s): CT abdomen pelvis w con Accession Number(s): [id number] cc: Jadon Pearson D.O.; Provider,Not a Local~ For Patients: As a result of the Cures Act, medical imaging exams and procedure reports are released immediately into your electronic medical record. You may view this report before your referring provider. If you have questions, please contact your health care provider. INDICATION: Diffuse abdominal pain and diarrhea. TECHNIQUE: CT abdomen and pelvis acquired with 95 cc Omnipaque 370 IV contrast. COMPARISON: CT abdomen and pelvis 11/14/2020. FINDINGS: Lower chest: Please refer to separately dictated CTA of the chest for discussion of intrathoracic contents. Liver: Scattered probable hepatic cysts. Gallbladder and bile ducts: Minimal intrahepatic biliary dilatation. No gallstones. No pericholecystic fluid. Pancreas: Unremarkable. Spleen: Unremarkable. Adrenal glands: Unremarkable. Kidneys: Delayed left renal nephrogram. Left ureteral wall thickening is similar in appearance compared to previous CT. Nonobstructing left lower pole renal calculus measures 3 mm. No definite hydronephrosis or hydroureter. 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 GI tract: No bowel obstruction. Mild scattered colonic and small bowel wall thickening. Normal appendix. Vasculature: Atherosclerotic vascular calcifications. Vasculature grossly patent. Lymph nodes: Enlarged bilateral external iliac lymph nodes, similar to prior. Prominent left para-aortic lymph nodes, also similar to prior. Peritoneum/Abdominal Wall: Trace pelvic ascites. No pneumoperitoneum. Pelvis: Mild bladder wall thickening. No suspicious adnexal mass. Bones: No acute abnormality. IMPRESSION: 1. Mild scattered colonic and small bowel wall thickening may reflect a nonspecific infectious/inflammatory enterocolitis. 2. Delayed left renal nephrogram with prominent left ureteral wall thickening, findings which may be chronic, however clinical correlation is recommended to exclude ascending urinary tract infection. 3. Mild bladder wall thickening. Correlate for cystitis. 4. Nonobstructing bilateral renal calculi. No hydronephrosis or hydroureter. 5. Minimal intrahepatic biliary dilatation, nonspecific. Further characterization with nonemergent MRCP can be pursued as clinically warranted. 6. Enlarged bilateral external iliac lymph nodes and prominent para-aortic lymph nodes, similar to previous CT. Please note that all CT scans at this facility use dose modulation, iterative reconstruction, and/or weight-based dosing when appropriate to reduce radiation dose to as low as reasonably achievable. Dictated by Rio Carranza MD @ 04/19/2024 12:30:21 AM (Electronically Signed) Ordering Physician: Jadon Pearson D.O. Date of Service: 04/18/24 Procedure(s): CT angio chest PE protocol Accession Number(s): [id number] cc: Jadon Pearson D.O.; Provider,Not a Local~ For Patients: As a result of the Cures Act, medical imaging exams and procedure reports are released immediately into your electronic medical record. You may view this report before your referring provider. If you have questions, please contact your health care provider. INDICATION: Pulmonary embolism (PE) suspected, history of ovarian cancer. Shortness of breath. TECHNIQUE: CTA chest PE was acquired with 95 cc Omnipaque 370 IV contrast. Multiplanar reformats were obtained, including axial MIP reconstructions. COMPARISON: None. FINDINGS: Heart and vasculature: Contrast opacification of the pulmonary arterial tree is adequate. Filling defects are noted within lobar and segmental branches of the right upper and middle lobes, compatible with pulmonary emboli. Filling defects also noted within segmental and subsegmental branches of the right lower lobe. Mild straightening of the interventricular septum and mild contrast reflux within the IVC may reflect some degree of right heart strain. No cardiomegaly or pericardial effusion. Main pulmonary artery is mildly dilated to 3.1 cm. Scattered atherosclerotic calcifications of the thoracic aorta and its major branches. No thoracic aortic aneurysm. Lungs and pleura: Small regions of tree-in-bud nodularity present within the right lower lobe. A right lower lobe pulmonary nodule measures 6 mm (series 5 image 148). A mildly spiculated right upper lobe pulmonary nodule measures 8 mm (image 36). Trace left pleural effusion. No pneumothorax. Lymph nodes/mediastinum: Scattered mildly prominent mediastinal lymph nodes, none of which meet size criteria for enlargement. Chest wall: No suspicious mass or fluid collection. Upper abdomen: Please refer to separately dictated CT of the abdomen/pelvis for discussion of intra-abdominal contents. Bones: No acute abnormality. IMPRESSION: 1. Pulmonary emboli involving the lobar and segmental branches of the right upper and middle lobes in addition to some segmental and subsegmental branches of the right lower lobe. Suggestion of mild right heart strain. 2. Small regions of tree-in-bud nodularity within the right lower lobe may reflect nonspecific infectious/inflammatory bronchiolitis. 3. Trace left pleural effusion. 4. Scattered pulmonary nodules, including a mildly spiculated right upper lobe pulmonary nodule measuring 8 mm. Given patient`s history, findings are concerning for metastatic disease. Recommend comparison with prior imaging, if available, to assess for interval change. 5. Mild dilatation of the main pulmonary artery may be seen in the setting of pulmonary hypertension. Above critical findings were discussed with Dr. Pearson via telephone on 04/19/2024 12:23 a.m. [employer]. Please note that all CT scans at this facility use dose modulation, iterative reconstruction, and/or weight-based dosing when appropriate to reduce radiation dose to as low as reasonably achievable. Dictated by Rio Carranza MD @ 04/19/2024 12:23:49 AM (Electronically Signed) Labs on day of discharge: Labs from last 24 hours 04/22/24 06:14 WBC 9.58 RBC 4.15 Hgb 12.5 Hct 38.1 MCV 92 MCH 30 MCHC 33 RDW Coeff of [place] 13.1 Plt Count 206 Neut % (Auto) 60.9 Lymph % (Auto) 26.5 [place] % (Auto) 11.0 Eos % (Auto) 1.0 Baso % (Auto) 0.1 Neut # (Auto) 5.83 Lymph # (Auto) 2.54 [place] # (Auto) 1.10 H Eos # (Auto) 0.10 Baso # (Auto) 0.01 Abs Immat Gran (auto) 0.05 Imm/Tot Granulo (auto) 0.5 Sodium 139 Potassium 3.5 L Chloride 109 Carbon Dioxide 28 Anion Gap 2 L BUN 16 Creatinine 0.9 Estimated Creat Clear 42.68 Estimated GFR 68 Glucose 88 Calcium 8.6 Total Bilirubin 0.3 Direct Bilirubin 0.3 AST 18 ALT 16 Alkaline Phosphatase 62 Troponin I < 0.01 L Total Protein 5.3 L Albumin 2.8 L Lipase 65 Discharge Plan Discharge Disposition: Home, Self-Care Date of Admission: 04/19/24 17:08 Attending Provider on Discharge: Bernadette Iglesias Primary Care Provider: Provider,Not a Local Condition: Stable Anticipated Discharge Date/Time: 04/22/24 12:26 Discharge Medications: New albuterol sulfate 2.5 mg /3 mL (0.083 %) Solution For Nebulization 2.5 mg NEB Q4H PRN (Reason: Wheezing) Qty: 30 0RF Eliquis DVT-PE Treat 30D Start 5 mg (74 tabs) tablets,dose pack See Rx Instructions .ROUTE .COMPLEX Qty: 74 0RF Rx Instructions: orally per package directions ipratropium-albuterol 0.5 mg-3 mg(2.5 mg base)/3 mL Solution For Nebulization 3 ml inhalation Q6H Qty: 30 0RF prednisone 20 mg Tablet 40 mg PO DAILYWM Qty: 2 0RF vancomycin 125 mg Capsule 125 mg PO QID 12 Days Qty: 48 0RF Lactobacillus acidophilus 0.5 mg (100 million cell) Tablet 100 mmu cells PO TIDWM Qty: 120 0RF nicotine (polacrilex) [Nicorette] 2 mg gum 2 mg buccal Q2H Qty: 40 0RF Continued hydroxyzine HCl 25 mg tablet 25 mg PO HS PRN liothyronine 5 mcg tablet 15 mcg PO DAILY Patient Comments: [NO ORIGINAL SIG] gabapentin 300 mg capsule 300 mg PO TID PRN Patient Comments: for neuropathic pain levothyroxine 112 mcg capsule 112 mcg PO DAILY AZO D-Mannose 500 mg capsule 500 mg PO BID Patient Comments: CAN INCREASE UP TO 1000MG TWICE DAILY Discharge Orders: Discharge Order (Routine); Ordered 04/22/24 Ordered By: Bernadette Iglesias Additional Instructions: Call [facility] pulmonology about getting back in for lung nodule biopsy Activity Level: No Restrictions Discharge Diet: Regular Follow Up Appointments: Provider,Not a Local [Primary Care Provider] - (Prabha Banuelos NP on Apr 29, 2024 with potassium, UA/UC) Forms: [employer] Info Instructions
[2024-04-22 14:08] LABS: Free T4 Free Thyroxine* 1.16 ng/dL (0.70-1.85)
== END 2024-04-22 15:21 | disposition home or self-care (01) | DRG 371 ==
LOC: ED 04-19 01:10 → MEDSURG 04-19 01:55
PROVIDERS: Family Medicine; Admitting Provider Internal Medicine; Emergency Provider Student in an Organized Health Care Education/Training Program; Visit Provider Family Medicine
DX: A04.72 Enterocolitis due to Clostridium difficile, not specified as recurrent (principal); I26.94 Multiple subsegmental thrombotic pulmonary emboli without acute cor pulmonale; J96.01 Acute respiratory failure with hypoxia; N39.0 Urinary tract infection, site not specified; J44.1 Chronic obstructive pulmonary disease with (acute) exacerbation; B96.4 Proteus (mirabilis) (morganii) as the cause of diseases classified elsewhere; R03.0 Elevated blood-pressure reading, without diagnosis of hypertension; E87.6 Hypokalemia; N18.30 Chronic kidney disease, stage 3 unspecified; R91.8 Other nonspecific abnormal finding of lung field; F41.9 Anxiety disorder, unspecified; N20.0 Calculus of kidney; F17.210 Nicotine dependence, cigarettes, uncomplicated; Z98.84 Bariatric surgery status; E03.9 Hypothyroidism, unspecified; Z85.43 Personal history of malignant neoplasm of ovary
CPT/HCPCS: 36415; 71275; 74177; 80048; 80053; 80076; 81001; 82565; 83690; 83735; 84439; 84443; 84484; 85025; 85027; 85610; 85730; 87086; 87186; 87493; 87631; 93306; 94640; 94761; 97161; 97165; 99285; G0378; A9270; J0696; J1644; J7120; J7512; Q9967